=== PATIENT | female | born 1950 | race Caucasian/White ===

== ENCOUNTER 2017-12-15 19:50 | Observation (INO) ==
[2017-12-15] MEDS ORDERED: Naloxone 0.4 MG/ML INJ IVP PRN (23:29)
--- NOTE | 2017-12-15 23:58 | Internal Med History&Physical ---
Date of Encounter: 12/15/17 Time of Encounter: 23:00 Internal Medicine - H&P: HPI Chief complaint: expressive aphasia; right sided weakness Admitted From: Hospital to Hospital Transfer Plans for Post Hospital Care: Home History of present illness: Ms. Diallo is a 67 year old female who presents in transfer from [facility] ER in [place] for concerns of TIA/stroke. Her last known well was last night before she went to bed. She awoke this morning with signs and symptoms of expressive aphasia and worsening right-sided weakness. She was brought to ER this evening where she was seen and evaluated for possible stroke. Most of her symptoms had resolved by then and a transfer request was made to [place] for ongoing care and evaluation. Upon arrival, I saw her shortly after she arrived here at [place]. She is resting in bed comfortably and denies any symptoms presently other than some very subtle difficulty with her speech. She states her right-sided weakness is back to her baseline and resolved now. Her speech is normal and intelligible with rare episodes of pressure-type speech and difficulty finding her words. Otherwise, she reports that her speech is almost back to her baseline. She denies any difficulty swallowing, choking, gagging, facial droop, numbness, weakness, or paralysis. Of note, patient states she had a stroke just recently in June of this year. She was seen at [facility] and then transferred to [facility] at that time. She did not meet criteria for TPA in the ER. However, during her hospital stay at [facility], on hospital day #2, she did have acute stroke symptoms then that required TPA administration and monitoring in the Neurologic intensive care unit. She was left with some residual right-sided deficits, and she then required inpatient rehabilitation for 2 months. Since then, she has been doing relatively well until this morning when she awoke with some expressive aphasia and worsening of her right- sided deficits. She is not diabetic. She is a former smoker, but she quit smoking 6 weeks ago. Past Med Surg Social Fam HX - Past Medical History Attestation: Yes The following information was validated with the patient. Source: patient, other ([facility] ER notes) Medical history: cancer, CVA Additional medical history: Breast CA (2007,2013) Right side mastectomy (breast reconstruction) , left side lymphectomy Psychiatric history: anxiety, depression - Past Surgical History Surgical History: appendectomy, hysterectomy Additional surgical history: leg sx; cyst removal from left posterior leg - Social History Smoking Status: Former smoker Smokeless Tobacco Status: No Alcohol use: none Drug use: none Current living situation: Home, With Family Activity Level: Independent ambulation Recent Out of Country Travel Within the Last 8 Weeks: No - Family History Father Living Status: Cause of : natural Hx Family Cancer: Yes (prostate) Mother History Unknown: Yes Living Status: Age at : 92 Cause of : fall Internal Medicine - H&P: Meds 3 Allergy/AdvReac Type Severity Reaction Status Date / Time morphine Allergy Unknown Hives Verified 12/15/17 23:47 - Constitutional Constitutional: no chills, no fever(s), no night sweats - EENT Eyes: no blurry vision, no change in vision Ears: no ear pain, no tinnitus Nose, mouth and throat: no nasal congestion, no sinus pressure, no sore throat - Cardiovascular Cardiovascular ROS IM: no chest pain, no dyspnea, no dyspnea on exertion, no edema, no orthopnea, no paroxysmal nocturnal dyspnea - Respiratory Respiratory: no cough, no hemoptysis, no chest congestion, no excessive phlegm production, no change in phlegm color - Gastrointestinal Gastrointestinal: no abdominal pain, no diarrhea, no hematemesis, no hematochezia, no vomiting - Genitourinary Genitourinary: no dysuria, no flank pain, no hematuria - Musculoskeletal Musculoskeletal ROS IM: no arthralgias, no back pain - Integumentary Integumentary IM: no rash, no jaundice - Neurological Neurological ROS: abnormal speech, focal weakness, no dizziness, no frequent falls, no headache(s), no vertigo - Psychiatric Psychiatric: no anxiety, no depression - Endocrine Endocrine IM: no cold intolerance, no heat intolerance, no polydipsia, no polyuria - Allergic/Immunologic Allergic/Immunologic: no GI upset with certain foods - Constitutional Vitals: Temp Pulse Resp BP Pulse Ox 98.3 F 97 16 175/91 96 12/15/17 23:02 12/15/17 23:02 12/15/17 23:02 12/15/17 23:02 12/15/17 23:02 General appearance: Present: cooperative, A&O X 3, pleasant, no acute distress, answers questions appropriately Exam: Normal intelligible speech with rare periods of expressive aphasia - Head Head exam: Present: atraumatic, normal inspection - Eye Eye exam: Present: EOMI, normal appearance, PERRL. Absent: scleral icterus Pupils: Present: normal accommodation - ENT ENT exam: Present: mucous membranes moist, normal exam, normal oropharynx - Neck Neck exam general surgery: Present: full ROM, supple. Absent: tenderness, nuchal rigidity, thyromegaly - Expanded Neck Exam Neck exam: Present: carotid bruit (left side) - Respiratory Respiratory exam: Present: CTAB. Absent: chest wall tenderness, rales, rhonchi , wheezes - Cardiovascular Cardiovascular exam: Present: RRR, +S1, +S2. Absent: diastolic murmur, systolic murmur - GI/Abdominal GI/Abdominal exam: Present: normal bowel sounds, soft. Absent: guarding, hepatomegaly, mass, rebound, splenomegaly, tenderness - Extremities Exam Extremities exam: Present: full ROM, normal capillary refill, warm, radial pulses palpable and symmetrical. Absent: calf tenderness, pedal edema, tenderness - Back Exam Back exam: Present: normal inspection. Absent: CVA tenderness (L), CVA tenderness (R) - Neurological Exam Neurological exam: Present: alert, motor sensory deficit (subtle weakness in RUE compared to left -- baseline per patient), oriented X3, reflexes normal, speech deficit (subtle episodes of expressive aphasia as noted above) - Psychiatric Psychiatric exam: Present: normal affect, normal mood - Skin Skin exam: Present: dry, intact, warm Internal Med - H&P Results - Labs Labs: I reviewed her labs from [facility] and include the following: CT of the head negative WBC 8.2 Hemoglobin 12.8 Hematocrit 30.9 Platelets 349 Sodium 135 Potassium 4.3 Chloride 99 Carbon dioxide 29 BUN 21 0.88 - EKG Data -: EKG Interpreted by Myself - EKG Data Prior EKG available for review: no EKG comments: 12/16/17 00:06 NSR with LVH findings - Assessment and plan (1) Expressive aphasia Current Visit: Yes Status: Acute Assessment and plan: 1. Symptoms mostly resolved by now. 2. Will proceed with stroke work-up including MRI brain, Carotid Dopplers, and ECHO. 3. Consult neurology given recent stroke at [facility] (June) and new findings noted above. 4. Patient will need PT/OT/ST consults. 5. Will start ASA and STATIN. Patient med list not available and she's unsure of her meds. (2) History of recent stroke Current Visit: Yes Status: Acute Assessment and plan: 1. Will try to obtain records from [facility]. 2. Stroke work up as above. 3. Allow permissive hypertension for now; treat if necessary for SBP > 180. (3) Left carotid bruit Current Visit: Yes Status: Acute Assessment and plan: 1. Will order Carotid Dopplers to evaluate for carotid stenosis. 2. ASA/STATIN as above. (4) DVT prophylaxis Current Visit: Yes Status: Acute Assessment and plan: 1. Heparin SQ.
[2017-12-16] MEDS: 0.9 % Sodium Chloride 1,000 ML IVC SCH ×2 (00:13→16:54)
[2017-12-16] MEDS: *HR* Heparin 5,000 UNIT/ML VIAL SQ SCH ×3 (00:13→17:11)
[2017-12-16 07:02] LABS: Basophils # 0.1 K/mcL (0.0-0.2); Basophils % 0.8 %; Eosinophils # 0.2 K/mcL (0.0-0.6); Eosinophils % 3.3 %; Hematocrit 38.9 % (35.3-44.9); Hemoglobin 12.7 g/dL (11.5-15.4); Immature Granulocytes % 0.2 % (0-4); Lymphocytes # 2.8 K/mcL (0.6-4.6); Mean Corpuscular HGB Conc 32.6 g/dL (31.6-35.5); Mean Corpuscular Hemoglobin 28.2 pg (28.0-33.3); Mean Corpuscular Volume 86.3 fL (83.0-100.0); Mean Platelet Volume 10.3 fL (9.4-12.4); Monocytes # 0.4 K/mcL (0.0-1.3); Monocytes % 6.9 %; Neutrophils # 2.9 K/mcL (1.6-8.9); Platelet Count 306 K/mcL (140-400); Red Blood Count 4.51 M/mcL (3.82-4.97); Red Cell Distribution Width 14.3 % (11.5-14.5); Segmented Neutrophils % 45.8 %
[2017-12-16 07:12] LABS: Prothrombin Time 11.1 Seconds (9.4-12.1)
[2017-12-16 07:15] LABS: Activated Partial Thrombo Time 32.7 Seconds (26.0-36.0)
[2017-12-16 07:24] LABS: Alanine Aminotransferase 10 Units/L (7-52); Albumin 4.1 g/dL (3.5-5.7); Albumin/Globulin Ratio 1.5 (1.1-2.2); Alkaline Phosphatase 98 Units/L (34-104); Aspartate Amino Transferase 14 Units/L (13-39); BUN/Creatinine Ratio 23 (6-26); Bilirubin,Total 0.3 mg/dL (0.3-1.0); Blood Urea Nitrogen 14 mg/dL (8-23); Calcium 9.2 mg/dL (8.6-10.3); Carbon Dioxide 21 mEq/L (23-29); Chloride 107 mEq/L (98-107); Chol/HDL Ratio 3.6 (0-4.9); Cholesterol 211 mg/dL (< 200); Globulin 2.8 g/dL (2.4-3.5); Glucose 121 mg/dL (70-105); HDL Cholesterol 58 mg/dL (40-59); LDL Cholesterol,Calculated 124 mg/dL (0-99); Magnesium 2.2 mg/dL (1.6-2.6); Osmolality,Calculated 290 (280-300); Potassium 3.6 mEq/L (3.5-5.1); Sodium 139 mEq/L (136-145); Total Protein 6.9 g/dL (6.4-8.9); Triglycerides 145 mg/dL (< 150); eGFR For Non-African Americans > 60 (> 60)
[2017-12-16] MEDS ORDERED: Aspirin Enteric Coated 81 MG Tablet PO SCH (09:00)
--- NOTE | 2017-12-16 10:10 | Internal Med Progress Note ---
Hospitalist Progress Note - Encounter Date of Encounter: 12/16/17 Time of Encounter: 10:00 - Subjective Interval History: PMHx expressive aphasia, breast cancer with right mastectomy, recent stroke, left carotid bruit, former smoker that quit 6 weeks ago transferred from [facility] ED for concerns of TIA vs CVA. Patient is doing well. She reports her aphasia and weakness has improved. She has not had another episode of weakness or aphasia since admission. Denies CP, SOB, abdominal pain, blurry vision, headaches, palpitations, recent illness f/c/n/v. She currently has no acute complaints. Tolerating PO intake. Voiding without difficulty. Denies confusion or dizziness, denies worsening memory, headaches. - Exam Vitals: Temp Pulse Resp BP Pulse Ox 98.5 F 75 16 144/83 95 12/16/17 03:25 12/16/17 03:25 12/16/17 03:25 12/16/17 03:25 12/16/17 03:25 Exam: General appearance: Present: cooperative, A&O X 3, pleasant, no acute distress, answers questions appropriately Exam: Normal intelligible speech - Head Head exam: Present: atraumatic, normal inspection - Eye Eye exam: Present: EOMI, normal appearance, PERRL. Absent: scleral icterus Pupils: Present: normal accommodation - ENT ENT exam: Present: mucous membranes moist, normal exam, normal oropharynx - Neck Neck exam general surgery: Present: full ROM, supple. Absent: tenderness, nuchal rigidity, thyromegaly - Expanded Neck Exam Neck exam: No carotid bruit - Respiratory Respiratory exam: Present: CTAB. Absent: chest wall tenderness, rales, rhonchi , wheezes - Cardiovascular Cardiovascular exam: Present: RRR, +S1, +S2. Absent: diastolic murmur, systolic murmur - GI/Abdominal GI/Abdominal exam: Present: normal bowel sounds, soft. Absent: guarding, hepatomegaly, mass, rebound, splenomegaly, tenderness - Extremities Exam Extremities exam: Present: full ROM, normal capillary refill, warm, radial pulses palpable and symmetrical. Absent: calf tenderness, pedal edema, tenderness - Back Exam Back exam: Present: normal inspection. Absent: CVA tenderness (L), CVA tenderness (R) - Neurological Exam Neurological exam: Present: alert, motor sensory deficit (subtle weakness in RUE compared to left -- baseline per patient), oriented X3, reflexes normal, speech deficit (subtle episodes of expressive aphasia as noted above) - Psychiatric Psychiatric exam: Present: normal affect, normal mood - Skin Skin exam: Present: dry, intact, warm - Assessment and Plan (1) CVA (cerebral vascular accident) Current Visit: Yes Status: Acute (2) Expressive aphasia Current Visit: Yes Status: Acute (3) History of recent stroke Current Visit: Yes Status: Acute DVT Prophylaxis: Patient on plavix - Time Spent with Patient Total time spent is greater than 50% in coordination of care (as documented) at patient's floor/unit and/or counseling patient: Internal Medicine: Result - Labs CBC & Chem 7: 12/16/17 06:39 12/16/17 06:39 Labs: Short CBC 12/16/17 Range/Units 06:39 WBC 6.4 (4.3-11.1) K/mcL Hgb 12.7 (11.5-15.4) g/dL Hct 38.9 (35.3-44.9) % Plt Count 306 (140-400) K/mcL Neutrophils # 2.9 (1.6-8.9) K/mcL BMP 12/16/17 06:39 Sodium 139 Potassium 3.6 Chloride 107 Carbon Dioxide 21 L BUN 14 Creatinine 0.60 Glucose 121 H Calcium 9.2 Liver Function 12/16/17 Range/Units 06:39 Total Bilirubin 0.3 (0.3-1.0) mg/dL AST 14 (13-39) Units/L ALT 10 (7-52) Units/L Alkaline Phosphatase 98 (34-104) Units/L Albumin 4.1 (3.5-5.7) g/dL - ABG Interpretation ABG results: PT/INR, D-dimer PT 11.1 Seconds (9.4-12.1) 12/16/17 06:39 - Impressions Impressions Brain MRI 12/16/17 23:29 IMPRESSION: Multiple small area of acute infarcts within the left cerebral hemisphere, as detailed above. No evidence of associated hemorrhage. Abnormal and asymmetric left internal carotid artery flow void. No recent vascular imaging is available for review. Recommend further evaluation with CTA head and neck, given infarcts within left ICA distribution. Chronic small vessel ischemic white matter disease and diffuse cerebral volume loss. The findings were sent to the Radiology Results Communication Center at 8:44 am on 12/16/2017to be communicated to a licensed caregiver. D/ / 12/16/2017 08:50:40 Cristóbal Ramirez MD / tigre Interpreting Provider: Cristóbal Ramirez MD Consult Discharge Plan - Plan Referrals: Funmilayo Plasencia [Primary Care Provider] - (1) CVA (cerebral vascular accident) Qualifiers: Qualified Code(s): I63.9 - Cerebral infarction, unspecified
[2017-12-16] MEDS ORDERED: Isovue-370 500 ML INFUS..BTL IV ONE (11:46)
--- NOTE | 2017-12-16 11:58 | Neurology - Consult Note ---
<Demetrius Yuen N - Last Filed: 12/16/17 13:28> Date of Encounter: 12/16/17 Time of Encounter: 11:58 Assessment and Plan (1) CVA (cerebral vascular accident) Current Visit: Yes Status: Acute 67 year old female with a history of previous strokes on aspirin and atorvastatin presents with acute onset right upper extremity weakness and aphasia. Patient presented to [facility] and was transferred to [facility]. Outside window for tPA. Last stroke was at [facility] in June for which she received tPA. MRI at [facility] positive for multiple small infarcts. follow up CTA showed narrowing of left cervical intracranial artery. -No new neurological deficits present at this time. Patient states her symptoms have mostly improved aside from mild expressive aphasia -CTA reveals patient has narrowing of left ICA at the intracranial portion, likely source of embolic event. -Will add plavix to current medication regimen to optimize medical management. -Given the intracranial location of the narrowing, it is unlikely that vascular intervention can take place at this time. May consider neurosurgery consultation in the future if applicable. -Stenosis at the level of the carotid bifurcation is less than 50% -Also consider paroxysmal afib as cause of patient's embolic events. If evidence of afib is present will need to start on anticoagulation therapy. Qualifiers: Qualified Code(s): I63.9 - Cerebral infarction, unspecified History of Present Illness Chief complaint: CVA HPI: Ms. Diallo is a 67 year old female with acute onset right upper extremity weakness and speech difficulty. She was transferred to [facility] from [facility] for concern for stroke. Of note, patient has had previous strokes, including one in june while she was hospitalized at [facility] for which she received TPA. She has been on atorvastatin 80 mg and aspirin 325mg at home daily. She denies any history of afib or prior anticoagulation use. She states that her symptoms have mostly returned to baseline, aside from some mild difficulty with word finding. Her right upper extremity sensation and strength is at baseline and she denies any focal neurological deficits. No headaches, confusion, changes in vision, or lower extremity symptoms. MRI at [facility] was indicative of multiple small areas of acute infarcts within the left cerebral hemisphere. follow up CT angiogram of head and neck revealed asymmetric narrowing of left cervical intracranial artery. Past Med Surg Social Fam HX - Past Medical History Medical history: cancer, CVA Additional medical history: Breast CA (2007,2013) Right side mastectomy (breast reconstruction) , left side lymphectomy Psychiatric history: anxiety, depression - Past Surgical History Surgical History: appendectomy, hysterectomy Additional surgical history: leg sx; cyst removal from left posterior leg - Social History Smoking Status: Former smoker Smokeless Tobacco Status: No Alcohol use: none Drug use: none - Family History Father Living Status: Cause of : natural Hx Family Cancer: Yes (prostate) Mother History Unknown: Yes Living Status: Age at : 92 Cause of : fall Medications and Allergies Albuterol Neb [Proventil Neb] 2.5 mg IH TID PRN 12/16/17 [History] Aspirin 325 mg PO DAILY 12/16/17 [History] Atorvastatin Calcium [Lipitor] 80 mg PO HS 12/16/17 [History] Cholecalciferol (D-3) [Vitamin D] 2,000 unit PO DAILY 12/16/17 [History] Duloxetine HCl [Cymbalta] 60 mg PO DAILY 12/16/17 [History] Lisinopril [Zestril] 5 mg PO DAILY 12/16/17 [History] Tizanidine HCl [Zanaflex] 2 mg PO HS 12/16/17 [History] clonazePAM [Klonopin] 1 mg PO HS PRN 12/16/17 [History] 3 Allergy/AdvReac Type Severity Reaction Status Date / Time morphine Allergy Unknown Hives Verified 12/15/17 23:47 All Systems: The remainder of the systems were reviewed and are negative - Constitutional Constitutional ROS IM: as per HPI Physical Examination - Vital Signs Vital Signs: Initial Vital Signs Temp Pulse Resp BP Pulse Ox 98.7 F 83 16 171/95 96 12/15/17 21:51 12/15/17 21:51 12/15/17 21:51 12/15/17 21:51 12/15/17 21:51 - Exam Exam: constitutional: pleasant, no acute distress Heart: regular rate and rhythm, no murmurs Lungs: clear to auscultation bilaterally Neurological: -Speech is fluent and intelligible. very mild and occasional expressive aphasia when exeriencing difficulty with word finding. -Cranial Nerves: II-XII grossly intact -Upper extremities: sensation intact, Strength is 5/5 bilaterally with mild motor weakness in RUE when compared to left, but patient states that this is baseline. Finger to nose normal. No pronator drift. biceps and brachioradialis reflexes are 2+. -Lower extremities: sensation intact, strength is 5/5 bilaterally. patellar and achilles reflexes are 2+ bilaterally. Results - Laboratory Findings CBC and BMP: 12/16/17 06:39 12/16/17 06:39 Abnormal lab findings: Abnormal lab results Carbon Dioxide 21 mEq/L (23-29) L 12/16/17 06:39 Glucose 121 mg/dL (70-105) H 12/16/17 06:39 POC Glucose 165 mg/dL (70-99) H 12/15/17 23:49 Cholesterol 211 mg/dL (< 200) H 12/16/17 06:39 LDL Cholesterol, Calc 124 mg/dL (0-99) H 12/16/17 06:39 Consult Discharge Plan - Plan Referrals: Funmilayo Plasencia [Primary Care Provider] - <Estefani Scott I - Last Filed: 12/16/17 14:55> Date of Encounter: 12/16/17 Assessment and Plan (1) CVA (cerebral vascular accident) Current Visit: Yes Status: Acute Pt was seen and examined, my medical decision was reviewed with the Resident Physician, I agree with the documented findings, disposition and treatment plas as described except to the extent set forth below This patient apparently had a history of multiple CVAs luckily enough she did not have much residual deficit even this time seems like she did have a new infarct currently she is been maintained on antiplatelet therapy suggest adding Plavix to it along with the statin. Considering these multiple events recorded during perhaps she may have underlying paroxysmal A. fib that causing these embolic phenomenon off-and-on and that need to be monitored. At the moment we need to continue monitor if there is an evidence of A. fib perhaps she may need to be anticoagulated on the other hand if there is no evidence of A. fib he may need to monitor her with loop recorder for any paroxysmal events. Other treatment is as per primary team will follow the patient with you Estefani Scott MD Qualifiers: Qualified Code(s): I63.9 - Cerebral infarction, unspecified History of Present Illness HPI: Ms. Diallo is a 67 year old female All Systems: The remainder of the systems were reviewed and are negative Physical Examination - Vital Signs Vital Signs: Initial Vital Signs Temp Pulse Resp BP Pulse Ox 98.7 F 83 16 171/95 96 12/15/17 21:51 12/15/17 21:51 12/15/17 21:51 12/15/17 21:51 12/15/17 21:51 - Exam Exam: GENERAL: Comfortable in no acute distress HEENT: Normal LUNGS: CTA HEART: RRR, S1 S2 Audible, no murmur EXTREMITIES: No Pedal edema. DETAILED NEUROLOGICAL EXAMINATION: MENTAL STATUS: Oriented to person, place, date and situation. Memory: knows the President, Aware of recent events Recent Memory Intact Cranial Nerve Examination: CN - II: Visual Acuity, Field of Vision Normal, Fundus examination: No disk edema, Pupils- size shape reaction to light and accommodation: All normal. CN III, IV, : External ocular movements were intact, Pupils were reactive, Nodrooping of the eyelids CN V: Sensation over the face to light touch and pinprick all normal. Corneal reflexes not tested, jaw jerk normal. CN VII: No facial asymmetry, no flattening of nasolabial folds, no difficulty in closing the eyes, no loss of forehead wrinkles, no difficulty in eye-closure, frowning raising eyebrows. CNVIII: No significant hearing loss CN IX, X: Uvula centralized not deviated, Gag reflex: Not tested CN X1: Sternocleidomastoid, trapezius, normal or evidence of any weakness. CN X11: No Dysarthria, no wasting or fibrilation f tongue muscles, no deviation, tongue muscle strength normal. Motor examination: No hypertrophy, tone was normal, power grade 0-5 Upper limbs Proximal- No difficulty in lifting the arms above the head. Distal- No weakness in distal muscles On formal testing 5/5 all over Lower limbs On formal testing 5/5 all over Coordination: [id number] normal. Target pursuit normal finger tapping normal, Rapid alternating moment of wrist normal Sensory system: Superficial sensations- Touch normal. Pain- Pinprick, Temperature all normal, Deep sensation normal, Joint position sense normal. Cortical sensation, Tactile discrimination, localization and extinction all normal. Deep tendon reflexes. Symmetrical bilateral, No evidence of Babinski. No sign of meningeal irritation Gait Examination: Deferred - Constitutional General appearance: comfortable Results - Laboratory Findings CBC and BMP: 12/16/17 06:39 12/16/17 06:39 Abnormal lab findings: Abnormal lab results Carbon Dioxide 21 mEq/L (23-29) L 12/16/17 06:39 Glucose 121 mg/dL (70-105) H 12/16/17 06:39 POC Glucose 165 mg/dL (70-99) H 12/15/17 23:49 Cholesterol 211 mg/dL (< 200) H 12/16/17 06:39 LDL Cholesterol, Calc 124 mg/dL (0-99) H 12/16/17 06:39
--- NOTE | 2017-12-16 14:54 | Electrocardiograph Report ---
[place] [id number] Test Date: 2017-12-16 Pat Name: Ratna Diallo Department: 113 Room: 3B64 Gender: F Proofer: : 1950 Requested By: Javi Abernathy Order Number: [id number] Reading MD: Mandeep Palm Measurements Intervals Turner Rate: 82 P: 47 MS: 195 QRS: 25 QRSD: 94 T: 131 QT: 389 QTc: 428 Interpretive Statements SINUS RHYTHM POSSIBLE LEFT ATRIAL ENLARGEMENT LEFT VENTRICULAR HYPERTROPHY AND ST-T CHANGE Electronically Signed On 12-16-2017 14:52:38 EDT by Mandeep Palm
--- NOTE | 2017-12-16 16:20 | Discharge Summary ---
<Marco Nina - Last Filed: 12/16/17 17:13> - NOTES TO OUTPATIENT PROVIDER Notes to Outpatient Provider: CTA neck demonstrates 80-99% stenosis in the left proximal ICA. All imaging provided with transfer. History of previous CVA in June 2017, admitted to [facility] at that time. Right sided weakness and aphasia have resolved. Patient on ASA and plavix now. Date of Encounter: 12/16/17 Time of Encounter: 10:00 - Discharge Diagnosis (1) CVA (cerebral vascular accident) Priority: Primary Status: Acute Qualifiers: Qualified Code(s): I63.032 - Cerebral infarction due to thrombosis of left carotid artery (2) Expressive aphasia Priority: Secondary Status: Acute (3) History of recent stroke Priority: Secondary Status: Acute (4) Left carotid bruit Priority: Secondary Status: Acute Hospital course: Ms. Diallo is a 67 year old female Ms. Diallo is a 67 year old female who presents in transfer from [facility] ER in [place] for concerns of TIA/stroke. She awoke yesterday morning with signs and symptoms of expressive aphasia and worsening right-sided weakness. She was brought to ER on the same evening where she was seen and evaluated for possible stroke. At [facility] ED, her symptoms had resolved and she was transferred to [place] for further work-up Upon arrival to [facility], she had subtle speech difficulties. She states her right- sided weakness is back to her baseline and resolved now. Her speech is normal and intelligible with rare episodes of pressure-type speech and difficulty finding her words. She denied any difficulty swallowing, choking, gagging, facial droop, numbness, weakness, or paralysis. Of note, patient had a stroke recently in June of this year. She was seen at [facility] ER and then transferred to [facility] at that time. She did not meet criteria for TPA in the ER. However, during her hospital stay at [facility], on hospital day #2, she did have acute stroke symptoms then that required TPA administration and monitoring in the Neurologic intensive care unit. She was left with some residual right-sided deficits, and she then required inpatient rehabilitation for 2 months. Since then, she has been doing relatively well until this morning when she awoke with some expressive aphasia and worsening of her right-sided deficits. She is not diabetic. She is a former smoker, but she quit smoking 6 weeks ago. At this visit, MRI demonstrated acute infarcts in the left cerebral hemisphere without hemorrhage. Left carotid duplex demonstrated left proximal ICA with 80- 99% stenosis. She is now started on plavix. Per neurology, given intracranial location of the narrowing, it is unlikely that vascular intervention can take place at this time. Further evaluation and recommended from neurosurgeon required. Spoke with daughter Daisy, who has requested transfer to [facility] as Mrs. Diallo was there on June 2017 for her previous stroke. Called [facility] for transfer and spoke with Dr. Barbara Strauss, neurologist, who has accepted transfer to brain and spine unit. Will continue ASA, Plavix and transfer to [facility] as planned. Please call if you have any questions Dr. Marco Nina, PGY2 Discharge discussed with: patient, family - Time Spent with Patient Total time spent providing and/or coordinating discharge services: Greater than 30 minutes - Discharge Medications Home Medications: Albuterol Neb [Proventil Neb] 2.5 mg IH TID PRN 12/16/17 [History] Aspirin Enteric Coated [Aspirin EC] 81 mg PO DAILY tablet. 12/16/17 [Rx] Atorvastatin Calcium [Lipitor] 80 mg PO HS 12/16/17 [History] Cholecalciferol (D-3) [Vitamin D] 2,000 unit PO DAILY 12/16/17 [History] Clopidogrel [Plavix] 75 mg PO DAILY tablet 12/16/17 [Rx] Duloxetine HCl [Cymbalta] 60 mg PO DAILY 12/16/17 [History] Heparin 5,000 unit SQ Q12HCO vial 12/16/17 [Rx] Lisinopril [Zestril] 5 mg PO DAILY 12/16/17 [History] Tizanidine HCl [Zanaflex] 2 mg PO HS 12/16/17 [History] clonazePAM [Klonopin] 1 mg PO HS PRN 12/16/17 [History] Allergies/Adverse Reactions: 3 Allergy/AdvReac Type Severity Reaction Status Date / Time morphine Allergy Unknown Hives Verified 12/15/17 23:47 Date of admission: 12/15/17 21:36 Primary care physician: Funmilayo Plasencia Consults: 12/15/17 23:30 Consult to Neurology [CONS] Routine Consulting Provider: [facility] Reason for Consult: recent stroke s/p TPA ([facility]) June,; now has expressive aphasia and worsening right sided weakness (resolved within 24 hours). Call Completed: No 12/16/17 11:38 Consult to Speech Therapy [CONS] Routine Comment: Evaluate, develop and implement POC Reason for Consult: patient is having slight difficulty finding words. Dysphasia sceen passed. Call Completed: No Discharging clinician: Marco Nina Anticipated date of discharge: 12/16/17 - Constitutional Vitals: Temp Pulse Resp BP Pulse Ox 97.6 F 95 19 159/92 97 12/16/17 12:36 12/16/17 12:36 12/16/17 12:36 12/16/17 12:36 12/16/17 12:36 General appearance: Present: cooperative, A&O X 3, pleasant, no acute distress, answers questions appropriately Exam: General appearance: Present: cooperative, A&O X 3, pleasant, no acute distress, answers questions appropriately Exam: Normal intelligible speech - Head Head exam: Present: atraumatic, normal inspection - Eye Eye exam: Present: EOMI, normal appearance, PERRL. Absent: scleral icterus Pupils: Present: normal accommodation - ENT ENT exam: Present: mucous membranes moist, normal exam, normal oropharynx - Neck Neck exam general surgery: Present: full ROM, supple. Absent: tenderness, nuchal rigidity, thyromegaly - Expanded Neck Exam Neck exam: left carotid bruit - Respiratory Respiratory exam: Present: CTAB. Absent: chest wall tenderness, rales, rhonchi , wheezes - Cardiovascular Cardiovascular exam: Present: RRR, +S1, +S2. Absent: diastolic murmur, systolic murmur - GI/Abdominal GI/Abdominal exam: Present: normal bowel sounds, soft. Absent: guarding, hepatomegaly, mass, rebound, splenomegaly, tenderness - Extremities Exam Extremities exam: Present: full ROM, normal capillary refill, warm, radial pulses palpable and symmetrical. Absent: calf tenderness, pedal edema, tenderness - Back Exam Back exam: Present: normal inspection. Absent: CVA tenderness (L), CVA tenderness (R) - Neurological Exam Neurological exam: Present: alert, motor sensory deficit (subtle weakness in RUE compared to left -- baseline per patient), oriented X3, reflexes normal, speech deficit (subtle episodes of expressive aphasia as noted above) - Psychiatric Psychiatric exam: Present: normal affect, normal mood - Skin Skin exam: Present: dry, intact, warm - Patient Status Disposition: Transfer Critical Access Hosp Condition: Undetermined Functional capacity at discharge: bed bound Overall status at discharge: patient is not back to baseline - Discharge Instructions Follow Up With: Funmilayo Plasencia [Primary Care Provider] - - Diet and Activity Activity: increase activity as tolerated Diet: regular diet <Karena Mcclendon - Last Filed: 12/16/17 17:57> Date of Encounter: 12/16/17 - Discharge Diagnosis (1) Expressive aphasia Status: Acute (2) History of recent stroke Status: Acute (3) DVT prophylaxis Status: Acute (4) Left carotid bruit Status: Acute Hospital course: Ms. Diallo is a 67 year old female - Time Spent with Patient Total time spent providing and/or coordinating discharge services: Date of admission: 12/15/17 21:36 Primary care physician: Funmilayo Plasencia Consults: 12/15/17 23:30 Consult to Neurology [CONS] Routine Consulting Provider: [facility] Reason for Consult: recent stroke s/p TPA ([facility]) June,; now has expressive aphasia and worsening right sided weakness (resolved within 24 hours). Call Completed: No 12/16/17 11:38 Consult to Speech Therapy [CONS] Routine Comment: Evaluate, develop and implement POC Reason for Consult: patient is having slight difficulty finding words. Dysphasia sceen passed. Call Completed: No - Constitutional Vitals: Temp Pulse Resp BP Pulse Ox 98.2 F 102 19 186/103 96 12/16/17 16:40 12/16/17 16:40 12/16/17 16:40 12/16/17 16:46 12/16/17 16:40 - Attending Attestation I examined this patient and my medical decision-making was reviewed with the Resident Physician Dr. Nina. I agree with the documented findings, disposition and treatment plan as described except to the extent set forth below. Ms. Diallo is a 67 year old female with known PMH of HTN, HLD, Breast CA recent CVA with Rt side weakness currently on ASA pt was admitted here for acute CVA like symptoms with aphasia and Rt side weakness. She denied any weakness today. Her aphasia also little better, however still has some aphasia. Pt MRI came back as multiple infraction on Left hemisphere. CTA of Neck showed multiple acute infracts with in left internal carotid artery distribution area. Carotid doppler showed Left ICA 80-99% stenosis. Pt does need further work up by neuro surgery, so will transfer her to [facility] today. Pt was not a candidate for tPA initially due to prolonged duration of symptoms. Cont ASA + added Plavix. Cont Statin.
[2017-12-16 16:46] VITALS: BP 186/103
== END 2017-12-16 20:14 | disposition other institution (70) ==
LOC: 3BNU
PROVIDERS: ADMIT Pediatrics; ATTEND Pediatrics

== ENCOUNTER 2018-03-11 00:19 | Inpatient (IN) ==
--- NOTE | 2018-03-11 03:08 | Internal Med History&Physical ---
<Tian Todd - Last Filed: 03/11/18 05:09> Date of Encounter: 03/11/18 Time of Encounter: 03:07 Internal Medicine - H&P: HPI Chief complaint: Shortness of breath Admitted From: Hospital to Hospital Transfer Plans for Post Hospital Care: Home History of present illness: Ms. Diallo is a 67 year old female with past medical history of CVA, hyperlipidemia, hypertension, breast cancer who presented to emergency department at [facility] with complaint of shortness of breath since Wednesday. Patient states that her symptoms have been gradually worsening since onset and are worse on exertion. She recently has been recovering from an episode of bronchitis and suspected that this shortness of breath was associated. She also admits to productive cough with thin clear sputum. She denies any previous epis odes similar to this. She also denies any symptoms of edema, fevers, chills, chest pain, palpitations, nausea, vomiting, numbness, tingling. She does admit to PND but denies orthopnea. She denies any cardiac history or pulmonary history. Her breast cancer is status post lumpectomy and her last known treatment of chemotherapy or radiation was in 2015. In the [facility] emergency department, laboratory results were significant for H/H of 9.2/28.9, troponin was 0.062, BNP was elevated at 5206. CTA was also performed which showed right breast implant which may be ruptured, mediastinal lymph node enlargement at 10 mm, left axillary lymph node enlargement, bilateral pleural effusions, cardiomegaly and bilateral lower lobe consolidations which is most employee representative of infection. EKG was obtained and showed sinus tachycardia at a rate of 122 with left atrial enlargement, LVH and some nonspecific ST depressions in leads V4 to V6. Past medical history as above Past surgical history includes lumpectomy, carotid endarterectomy Social history: Former smoker (one pack per day, quit in July 2017), denies alcohol or drug use Family history: Denies any contributing family history Past Med Surg Social Fam HX - Past Medical History Medical history: arthritis, cancer, CVA, hyperlipidemia, hypertension Additional medical history: Breast CA (2007,2013) Right side mastectomy (breast reconstruction) , left side lymphectomy Psychiatric history: anxiety, depression - Past Surgical History Surgical History: appendectomy, hysterectomy Additional surgical history: leg sx; cyst removal from left posterior leg - Social History Smoking Status: Former smoker Smokeless Tobacco Status: No Alcohol use: none Drug use: none - Family History Father Living Status: Hx Family Cancer: Yes (prostate) Mother Living Status: Internal Medicine - H&P: Meds Albuterol Neb [Proventil Neb] 2.5 mg IH TID PRN 12/16/17 [History] Aspirin Enteric Coated [Aspirin EC] 81 mg PO DAILY tablet. 12/16/17 [Rx] Atorvastatin Calcium [Lipitor] 80 mg PO HS 12/16/17 [History] Cholecalciferol (D-3) [Vitamin D] 2,000 unit PO DAILY 12/16/17 [History] Clopidogrel [Plavix] 75 mg PO DAILY tablet 12/16/17 [Rx] Duloxetine HCl [Cymbalta] 60 mg PO DAILY 12/16/17 [History] Heparin 5,000 unit SQ Q12HCO vial 12/16/17 [Rx] Lisinopril [Zestril] 5 mg PO DAILY 12/16/17 [History] Tizanidine HCl [Zanaflex] 2 mg PO HS 12/16/17 [History] clonazePAM [Klonopin] 1 mg PO HS PRN 12/16/17 [History] Allergy/AdvReac Type Severity Reaction Status Date / Time morphine Allergy Unknown Hives Verified 12/15/17 23:47 All Systems PM: A 10-system review of systems was performed and is negative for pertinent findings except as documented above in the HPI. Review of systems: - Constitutional: Denies fevers, chills, weight loss, generalized fatigue - EENT: Denies vision changes/blurriness, rhinorrhea, congestion, sore throat, odynaphagia - CVS: Admits to dyspnea on exertion, PND .Denies chest pain, palpitations, orthopnea, edema - Pulm: Admits to shortness of breath, cough, sputum. Denies hematemesis, wheezing - GI: Denies abdominal pain, anorexia, nausea, vomiting, diarrhea, constipation, melena - : Denies dysuria, increased frequency, urgency, hematuria, - Skin: Denies rashes, ulcers, color changes, - Neuro: Denies SCHNEIDER, paresthesias, focal deficits, ataxia - Constitutional Vitals: Temp Pulse Resp BP Pulse Ox 98.0 F 109 16 142/88 95 03/11/18 01:45 03/11/18 01:45 03/11/18 01:45 03/11/18 01:45 03/11/18 01:45 Exam: Gen.: Vitals noted. No acute distress. AAOx3, resting comfortably in bed. HEENT: PERRL/EOMI, oropharynx clear, Normocephalic, atraumatic, MMM Neck: Supple. No adenopathy. No thyroid nodules Cardiac: Regular rhythm, tachycardic, no murmur, +S1/S2, No BLE edema Pulmonary: CTA bilaterally, no wheezes, rales or rhonchi, equal chest expansion, unlabored breathing Abdomen: soft, nontender, BS noted, no guarding, no palpable HSM Skin: warm and dry, no visible lesions. MSK: ROM not assessed, no joint swelling noted, gait no assessed while in bed. Non tender calf or clubbing Neuro: A&Ox3, moves all extremities, no focal deficits, sensation intact, cranial nerves grossly intact Psych: Appropriate mood and behavior, AOx3 Internal Med - H&P Results - Labs CBC & Chem 7: 03/11/18 03:26 03/11/18 03:26 - Assessment and plan (1) Shortness of breath Current Visit: Yes Status: Acute Assessment and plan: - Etiology possibly multifactorial: CHF exacerbation with pneumonia - Patient is non septic, no WBC elevation - Currently tolerating room air. Admits to LAMB and PND - BNP 5206 in [facility] - Previous Echo in December 2017 shows EF 45-50%, Mild diastolic dysfunction - CTA performed in [facility] shows bilateral pleural effusions, R>L as well as bilateral lower lobe consolidations most suspicious of infection - Previous treatment for breast cancer- pericardial effusion, dilated c ardiomyopathy in differential. Plan - Will start abx of azithromycin and rocephin for CAP, day1 - Trend troponin, repeat BNP - Lasix 20 mg IV x1 dose, assess output after - Fluid restriction diet - Will Consult cardiology for possible new onset/worsening of CHF as well as NSTEMI (2) Congestive heart failure Current Visit: Yes Status: Acute Assessment and plan: - As above - Patient denies previous history, however Echo 12/16/17 shows EF 45-50%, mild diastolic dysfunction, mild RV hypokinesis, mild RV dilation - CTA shows ground glass opacities bilaterally that may be infectious or employee representative of edema. - BNP 5206 - EKG shows LVH, LA enlargement Qualifiers: Heart failure type: diastolic Heart failure chronicity: acute on chronic Qualified Code(s): I50.33 - Acute on chronic diastolic (congestive) heart markus lure (3) Pneumonia Current Visit: Yes Status: Acute Assessment and plan: as above - abx of azithromycin and ceftriaxone - Will obtain blood cultures - per CTA - Non septic Qualifiers: Pneumonia type: due to unspecified organism Laterality: bilateral Lung location: lower lobe of lung Qualified Code(s): J18.1 - Lobar pneumonia, unspecified organism (4) NSTEMI (non-ST elevated myocardial infarction) Current Visit: Yes Status: Acute Assessment and plan: - Trop elevated at 0.062 at [facility], will trend - Suspect demand ischemia, however patient may have new onset CHF - cardiology consult - no chest pain - EKG reviewed personally and repeated at [facility] (5) Hyperlipidemia Current Visit: Yes Status: Chronic Assessment and plan: Continue statin when meds reconciled repeat lipid panel in AM Qualifiers: Hyperlipidemia type: unspecified Qualified Code(s): E78.5 - Hyperlipidemia, unspecified (6) Hypertension Current Visit: Yes Status: Chronic Assessment and plan: - Mildly elevated at 152/94 - Hold BB in case of stress test - Continue to monitor Qualifiers: Hypertension type: essential hypertension Qualified Code(s): I10 - Essential (primary) hypertension (7) CVA (cerebral vascular accident) Current Visit: Yes Status: Chronic Assessment and plan: - History of CVA x2 in June 2017 with use of TPA at [facility] - Follows with Dr. Scott as outpatient - No neurological defecits - Continue DAPT Qualifiers: CVA mechanism: unspecified Qualified Code(s): I63.9 - Cerebral infarction, unspecified (8) Anemia Current Visit: Yes Status: Acute Assessment and plan: - H/H of 9.2/28.9 in [facility] - Previous baseline of 12.7 in December 2017 - No complaints of bleeding, however has been on DAPT. Started on heparin gtt - Normal Mcv - Will obtain iron panel, FOBT - No indications for transfusions at this time. Qualifiers: Anemia type: unspecified type Qualified Code(s): D64.9 - Anemia, unsp ecified (9) DVT prophylaxis Current Visit: Yes Status: Acute Assessment and plan: - On heparin gtt for NSTEMI as above - Time Spent With Patient Total time spent is greater than 50% in coordination of care (as documented) at patient's floor/unit and/or counseling patient: <Luis E Jackson - Last Filed: 03/11/18 06:17> Date of Encounter: 03/11/18 Internal Medicine - H&P: HPI History of present illness: Ms. Diallo is a 67 year old female All Systems PM: A 10-system review of systems was performed and is negative for pertinent findings except as documented above in the HPI. - Constitutional Vitals: Temp Pulse Resp BP Pulse Ox 98.0 F 106 16 152/94 94 03/11/18 03:35 03/11/18 03:35 03/11/18 03:35 03/11/18 03:35 03/11/18 03:35 Internal Med - H&P Results - Labs CBC & Chem 7: 03/11/18 03:26 03/11/18 03:26 Labs: Short CBC 03/11/18 Range/Units 03:26 WBC 7.2 (4.3-11.1) K/mcL Hgb 8.9 L (11.5-15.4) g/dL Hct 28.2 L (35.3-44.9) % Plt Count 447 H (140-400) K/mcL BMP 03/11/18 03:26 Sodium 135 L Potassium 3.9 Chloride 105 Carbon Dioxide 20 L BUN 14 Creatinine 0.76 Glucose 151 H Calcium 9.2 Cardiac Enzymes 03/11/18 Range/Units 03:26 Troponin I 0.04 H* (< 0.04) ng/mL - Time Spent With Patient Total time spent is greater than 50% in coordination of care (as documented) at patient's floor/unit and/or counseling patient: - Attending Attestation I saw and evaluated the patient. I reviewed the residents note, performed my own physical examination and agree with findings and plan as documented in the residents note. Patient seen and examined on 03/11/18. Patient presented to ER for shortness of breath. Has elevated troponin, and possible pneumonia as well. Recent echo performed, but will get repeat as now has elevated BNP. Will have cardiology evaluate as well in the morning.
[2018-03-11] MEDS ORDERED: *HR* Heparin 5,000 UNIT/ML VIAL IVP ONE (03:40)
[2018-03-11] MEDS ORDERED: *HR* Heparin 5,000 UNIT/ML VIAL IVP PRN ×2 (03:40)
[2018-03-11] MEDS ORDERED: Heparin 25,000 UNIT/500 ML D5W 25,000 UNIT/500 ML BAG IVC SCH (03:45)
[2018-03-11] MEDS ORDERED: Naloxone 0.4 MG/ML INJ IVP PRN (03:57)
[2018-03-11] MEDS ORDERED: Furosemide 20 MG/2 ML VIAL IVP ONE ×3 (03:58→09:03)
[2018-03-11 04:08] LABS: Hematocrit 28.2 % (35.3-44.9); Hemoglobin 8.9 g/dL (11.5-15.4); Mean Corpuscular HGB Conc 31.6 g/dL (31.6-35.5); Mean Corpuscular Hemoglobin 26.6 pg (28.0-33.3); Mean Corpuscular Volume 84.2 fL (83.0-100.0); Mean Platelet Volume 10.3 fL (9.4-12.4); Platelet Count 447 K/mcL (140-400); Red Blood Count 3.35 M/mcL (3.82-4.97); Red Cell Distribution Width 14.4 % (11.5-14.5)
[2018-03-11 04:18] LABS: Heparin anti-factor XA UFH 0.78 IU/mL (0.30-0.70); INR 1.3; Prothrombin Time 14.5 Seconds (9.4-12.1)
[2018-03-11 04:24] LABS: BUN/Creatinine Ratio 18 (6-26); Blood Urea Nitrogen 14 mg/dL (8-23); Calcium 9.2 mg/dL (8.6-10.3); Carbon Dioxide 20 mEq/L (23-29); Chloride 105 mEq/L (98-107); Cholesterol 112 mg/dL (< 200); Glucose 151 mg/dL (70-105); HDL Cholesterol 37 mg/dL (40-59); LDL Cholesterol,Calculated 62 mg/dL (0-99); Osmolality,Calculated 283 (280-300); Potassium 3.9 mEq/L (3.5-5.1); Sodium 135 mEq/L (136-145); Triglycerides 65 mg/dL (< 150); eGFR For Non-African Americans > 60 (> 60)
[2018-03-11] MEDS: Azithromycin 500 MG in D5% in Water 250 ML IVPB SCH (04:28)
[2018-03-11 04:33] LABS: Estimated Average Glucose 134 mg/dl; Hemoglobin A1C 6.3 %
[2018-03-11] MEDS: Ondansetron 4 MG/2 ML VIAL IVP PRN (05:27)
[2018-03-11] MEDS: cefTRIAXone 1,000 MG in Water for inj. (sterile) 20 ML 10 ML IVP SCH (07:53)
[2018-03-11 07:59] LABS: % Iron Saturation 2 % (15-50); Iron 11 mcg/dL (50-170); Transferrin 319 mg/dL (203-362)
--- NOTE | 2018-03-11 08:53 | Internal Med Progress Note ---
Hospitalist Progress Note - Encounter Date of Encounter: 03/11/18 Time of Encounter: 08:25 - Subjective Interval History: Seen and examined this morning at bedside. No acute overnight events. Breathing improved. No fever or chills nausea vomiting diarrhea. Denies any chest pain or palpitation or dizziness. Denies any chest discomfort or arm pain. - Exam Vitals: Temp Pulse Resp BP Pulse Ox 98.1 F 90 16 103/67 90 03/11/18 07:25 03/11/18 07:25 03/11/18 07:25 03/11/18 07:25 03/11/18 07:25 Exam: General: In no acute distress. Conversant. Respiratory exam: no accessory muscle use. Rales on Lt mid lung field and Rt lower lung field Cardiovascular exam: RRR, +S1, +S2. no murmur, gallop, rubs. Rt breast implant noted. Without chest wall tenderness or erythema. GI/Abdominal exam: Non-tender, Non-distended, normal bowel sounds, soft, no peritoneal signs. Extremities exam: full ROM, no pedal edema, warm, pulses palpable in b/l lower extremities. no calf tenderness Neurological exam: CN II-XII intact, AO X3, no focal deficits. no pronater drift, facial droop, speech deficit Skin exam: No skin rash, ulcer, purpura or ecchymosis. - Summary of Assessment and Plan Summary of Assessment and Plan: Shortness of breath - CHF vs PNA vs multifactorial - Tachycardic intially, no white count - BNP 5206 in [facility]. Today 1500s - Echo in December with EF 45-50%, Mild diastolic dysfunction - CTA at [facility] shows bilateral pleural effusions, bilateral lower lobe consolidations - c/w azithromycin and rocephin for CAP. f/u BLood cultures - Trend troponin 0.06->0.04. Currently chest pain free. EKG with LVH and tachy cardia with T-wave inversion and ST depressions in V4-v6. No stress test in last 2 yers that patient remembers. - Got one dose of Lasix 20 mg IV. symptomatically improved. Will give one more dose today - c/w Fluid restriction - f/u ECHO - Cardiology consulted Congestive heart failure - As above Pneumonia -as above NSTEMI - Trop 0.06->0.04 - Suspect demand ischemia - cardiology consult - Currently without chest pain - EKG as above Suspected Rt breast implant rupture - Based on CT scan - Patient without any complains - Surgery consulted. Hyperlipidemia - c/w home statin Hypertension - BB on hold - Continue to monitor. Stable for now h/o CVA - CVA x2 in June 2017 with use of TPA at [facility] - No neurological defecits - Continue DAPT and statin Anemia - Hb 8.9. baseline of 12.7 in December 2017 - No complaints of bleeding, however has been on DAPT. Started on heparin gtt - Iron panel with likely iron def. f/u FOBT - No indications for transfusions at this time. - monitor H/H DVT prophylaxis - On heparin drip - Time Spent with Patient Total time spent is greater than 50% in coordination of care (as documented) at patient's floor/unit and/or counseling patient: Internal Medicine: Result - Labs CBC & Chem 7: 03/11/18 03:26 03/11/18 03:26 Labs: Short CBC 03/11/18 Range/Units 03:26 WBC 7.2 (4.3-11.1) K/mcL Hgb 8.9 L (11.5-15.4) g/dL Hct 28.2 L (35.3-44.9) % Plt Count 447 H (140-400) K/mcL BMP 03/11/18 03:26 Sodium 135 L Potassium 3.9 Chloride 105 Carbon Dioxide 20 L BUN 14 Creatinine 0.76 Glucose 151 H Calcium 9.2 Cardiac Enzymes 03/11/18 Range/Units 03:26 Troponin I 0.04 H* (< 0.04) ng/mL - ABG Interpretation ABG results: PT/INR, D-dimer PT 14.5 Seconds (9.4-12.1) H 03/11/18 03:55 Consult Discharge Plan - Plan Referrals: Funmilayo Plasencia [Primary Care Provider] -
[2018-03-11] MEDS: Aspirin Enteric Coated 81 MG Tablet PO SCH (09:32)
--- NOTE | 2018-03-11 12:05 | Cardiology Consult Note ---
<Rosalba Daniels - Last Filed: 03/11/18 13:04> Date of Encounter: 03/11/18 Time of Encounter: 09:45 Assessment and Plan (1) Congestive heart failure Current Visit: Yes Status: Acute Per cardiology: -ADmitted with CHF, reports NYHA class III symptoms. -BNP 1500s. -Was given IV lasix. -Reports symptoms now resolves after IV lasix. -Currently euvolemic on exam. -TTE 12/2017 with LVEF 45-50%, mild diastolic dysfunction, mild RV hypokinesis, mildly dilated RV, mildly dilated left atrium. -Repeat limited TTE pending. -Strict i/os, fluid restriction, daily weight. -Will add oral lasix. -REstart patient shanell inhibitor, will start BB. -CHF education reviewed with patient. Qualifiers: Heart failure type: combined systolic and diastolic Heart failure chronicity: acute on chronic Qualified Code(s): I50.43 - Acute on chronic combined systolic (congestive) and diastolic (congestive) heart failure (2) Elevated troponin Current Visit: Yes Status: Acute Per cardiology: -Troponin 0.0662 [place], 0.04, then negative [facility] in the setting of CHF. -Reports atypical, pleuritic Chest pain. -ECG with lateral ST depressions and T wave inversions, similar to previous ECG 12/2017. -On heparin drip, asa, plavix, statin. -Limited TTE pending. -Demand ischemia related to above. No cardiac rehab consult warranted. -Starting BB. -If no significant change on limited TTE, ok to discontinue heparin drip. -With mild reduction in LV systolic function 12/2017, can consider ischemic e valuation in outpatient setting. OF note, acute anemia noted and recent CVA 12/2017. (3) Anemia Current Visit: Yes Status: Acute Per cardiology: -hemoglobin 8.9 this admission. -Hemoglobin 12/2017 12.7. -Denies active bleeding or blood loss. -Recommend GI evaluation. -Management per primary service. Qualifiers: Anemia type: unspecified type Qualified Code(s): D64.9 - Anemia, unspecified Discussion w patient/family: The assessment and plan as outlined above was discussed with the patient who expressed understanding and agreement. All questions were answered. Thank you for involving us in the care of your patient. Please call with any questions. Discussed and reviewed with . History of Present Illness Consult date: 03/11/18 Requesting physician: Tian Todd Consult reason: elevated troponin Chief complaint: shortness of breath History of present illness: Ms. Diallo is a 67 year old female with a relevant past medical history of depression, HTN, vascular disease, multiple CVAs, breast cancer s/p mastectomy who presented to [facility] for increased shortness of breath. Patient was then transferred to [facility]. Patient reports shortness of breath since Wednesday. Repors pleuritic chest pain. States was being treated for bronchitis in outpatient setting. Denies edema. Patient reports after lasix, symptoms have resolved. Denies current complaints. Past Med Surg Social Fam HX - Past Medical History Attestation: Yes The following information was validated with the patient. Source: patient, old records reviewed Medical history: arthritis, cancer, CVA, hyperlipidemia, hypertension Additional medical history: Breast CA (2007,2013) Right side mastectomy (breast reconstruction) , left side lymphectomy Psychiatric history: anxiety, depression - Past Surgical History Surgical History: appendectomy, hysterectomy Additional surgical history: leg sx; cyst removal from left posterior leg - Social History Smoking Status: Former smoker Smokeless Tobacco Status: No Alcohol use: none Drug use: none - Family History Father Living Status: Hx Family Cancer: Yes (prostate) Mother Living Status: Medications and Allergies Atorvastatin Calcium [Lipitor] 80 mg PO HS 12/16/17 [History] Cholecalciferol (D-3) [Vitamin D] 2,000 unit PO DAILY 12/16/17 [History] Clopidogrel [Plavix] 75 mg PO DAILY tablet 12/16/17 [Rx] Duloxetine HCl [Cymbalta] 60 mg PO DAILY 12/16/17 [History] Lisinopril [Zestril] 5 mg PO DAILY 12/16/17 [History] Tizanidine HCl [Zanaflex] 2 mg PO HS 12/16/17 [History] clonazePAM [Klonopin] 1 mg PO HS PRN 12/16/17 [History] Aspirin 325 mg PO DAILY 03/11/18 [History] Allergy/AdvReac Type Severity Reaction Status Date / Time morphine AdvReac Unknown See Verified 03/11/18 12:39 Comments gabapentin AdvReac See Verified 03/11/18 12:39 Comments All Systems Review: The remainder of the systems were reviewed and are negative - Cardiovascular Cardiovascular: as per HPI, dyspnea at rest, dyspnea on exertion Physical Examination Vital Signs, Last 4 Hours Temp Pulse Resp BP Pulse Ox 03/11/18 11:15 98.4 F 100 18 129/82 91 General: Conversant, No Apparent Distress HEENT: Atraumatic, Normocephaly, Mucus Membranes Moist Neck: No JVD, Normal carotid pulses Cardiac: Reg Rate and Rhythm, Normal S1 and S2, No Murmur Lungs: Normal Breath Sounds, No Wheeze, Rales, Rhonchi Neuro: Alert and responsive, No focal deficits noted Abdomen: Soft, Non-Tender Skin: No rashes noted on visualized skin Musculoskeletal: No Chest Wall Tenderness Extremities: No Clubbing, No Cyanosis, No Edema, Normal Pulses Results 03/11/18 03:26 03/11/18 03:26 Lab Results Active Medications Aspirin (Aspirin Ec) 81 mg PO DAILY [facility] Stop: 09/10/18 09:01 Last Admin: 03/11/18 09:32 Dose: 81 mg Atorvastatin Calcium (Lipitor) 80 mg PO HS [facility] Stop: 09/10/18 21:01 Clopidogrel Bisulfate (Plavix) 75 mg PO DAILY [facility] Stop: 09/10/18 09:01 Last Admin: 03/11/18 09:32 Dose: 75 mg Heparin Sodium (Porcine) (Heparin) 3,600 unit 60 unit/kg (3600 unit) IVP Q6HR PRN PRN Reason: SEE COMMENTS Stop: 09/10/18 03:41 Heparin Sodium (Porcine) (Heparin) 1,800 unit 30 unit/kg (1800 unit) IVP Q6H PRN PRN Reason: SEE COMMENTS Stop: 09/10/18 03:41 Heparin Sodium/Dextrose (Heparin 25,000 Unit/500 Ml D5w) 25,000 unit in 500 mls @ 14.544 mls/hr IVC .Q24H [facility]; Protocol Stop: 09/10/18 03:46 Last Titration: 03/11/18 11:32 Dose: 7 unit/kg/hr, 8.484 mls/hr Azithromycin 500 mg/ Dextrose 250 mls @ 252 mls/hr IVPB Q24H [facility] Stop: 09/10/18 05:01 Last Admin: 03/11/18 04:28 Dose: 252 mls/hr Ceftriaxone Sodium 1,000 mg/ (Sterile Water) 10 mls @ 600 mls/hr IVP DAILY [facility] Stop: 09/10/18 09:01 Last Admin: 03/11/18 07:53 Dose: 600 mls/hr Lisinopril (Zestril) 5 mg PO DAILY [facility]; Protocol Stop: 09/10/18 12:16 Metoprolol Succinate (Toprol Xl) 25 mg PO DAILY [facility] Stop: 09/10/18 12:16 Naloxone HCl (Narcan) 0.4 mg IVP Q2MIN PRN PRN Reason: SEE COMMENTS Stop: 09/10/18 03:58 Ondansetron HCl (Zofran) 4 mg IVP Q6HR PRN; Protocol PRN Reason: Nausea Stop: 09/10/18 05:19 Last Admin: 03/11/18 05:27 Dose: 4 mg Laboratory Tests 12/16/17 03/11/18 03/11/18 06:39 03:26 03:26 Hgb 12.7 8.9 L Creatinine Troponin I 0.04 H* B-Natriuretic Peptide 03/11/18 03/11/18 03/11/18 03:26 03:26 10:00 Hgb Creatinine 0.76 Troponin I 0.03 B-Natriuretic Peptide 1556 H - Imaging and Cardiology Chest Xray: report reviewed Echo: pending, report reviewed - EKG Interpretation EKG results cardiology: personally reviewed (ECG with ST, HR 122. Lateral ST depressions noted, similar to previous.), other (Telemetry reviewed with average HR previous 12 hours noted to be 104, ST. PVCs, PACs noted.) Consult Discharge Plan - Plan Referrals: Funmilayo Plasencia [Primary Care Provider] - <Mandeep Palm - Last Filed: 03/11/18 17:17> Date of Encounter: 03/11/18 - Attending Attestation Patient was seen and evaluated independently by me. Findings, assessment and plan were discussed at length with patient, questions answered. Agree with nurse practitioner's/resident's documentation. Addition as follows, 67 yoF ho multiple ischemic strokes, mild HFrEF , HTN, breast Ca. P/w progressive LAMB for 2-3 days with recent respiratory infection. ECG chronic LVH ST-T change. Trop peak 0.06, BNP 1500. Dyspnea much improved after lasix iv. VSS, no JVD, CTA, RR, no LE edema. TTE EF 45-50%, mild DD, mild RV enlargement with mild hypokinesis A: ADHF, HFrEF, trigger likely respiratory infection, mild fluid overload, currently close to euvolemia Mild trop elevation due to myocardial injury due to ADHF Bronchitis Ho multiple ischemic CVA P: pending repeated TTE lasix till euvolemia BB, ACEI c/w DAPT, statin cardiac clinic f/u Mandeep Palm MD, PhD Assessment and Plan Discussion w patient/family: The assessment and plan as outlined above was discussed with the patient and/or family members who expressed understanding and agreement. All questions were answered. Thank you for involving us in the care of your patient. Please call with any questions. History of Present Illness History of present illness: Ms. Diallo is a 67 year old female All Systems Review: The remainder of the systems were reviewed and are negative Physical Examination Vital Signs, Last 4 Hours Temp Pulse Resp BP Pulse Ox 03/11/18 16:30 98.2 F 100 18 135/80 92 Results 03/11/18 03:26 03/11/18 03:26 Lab Results 03/11/18 03/11/18 03/11/18 03:26 03:26 03:26 WBC 7.2 Hgb 8.9 L Hct 28.2 L Plt Count 447 H INR Sodium 135 L Potassium 3.9 Chloride 105 Carbon Dioxide 20 L BUN 14 Creatinine 0.76 Glucose 151 H Calcium 9.2 Troponin I 0.04 H* B-Natriuretic Peptide 03/11/18 03/11/18 03/11/18 03:26 03:55 10:00 WBC Hgb Hct Plt Count INR 1.3 Sodium Potassium Chloride Carbon Dioxide BUN Creatinine Glucose Calcium Troponin I 0.03 B-Natriuretic Peptide 1556 H
[2018-03-11] MEDS: Metoprolol XL (24 HR) Succ 25 MG TAB.ER.24H PO SCH (13:57)
[2018-03-11] MEDS ORDERED: Perflutren Lipid Microsphere 1.3 ML in 0.9 % Sodium Chloride 8.7 ML IVP ONE (19:22)
[2018-03-12] MEDS: Azithromycin 500 MG in D5% in Water 250 ML IVPB SCH (05:01)
[2018-03-12 05:19] LABS: Basophils # 0.1 K/mcL (0.0-0.2); Basophils % 0.8 %; Eosinophils # 0.1 K/mcL (0.0-0.6); Eosinophils % 1.4 %; Hematocrit 28.5 % (35.3-44.9); Immature Granulocytes % 0.4 % (0-4); Lymphocytes # 2.5 K/mcL (0.6-4.6); Lymphocytes % 31.9 %; Mean Corpuscular HGB Conc 31.6 g/dL (31.6-35.5); Mean Corpuscular Hemoglobin 26.3 pg (28.0-33.3); Mean Corpuscular Volume 83.3 fL (83.0-100.0); Mean Platelet Volume 9.9 fL (9.4-12.4); Monocytes # 0.5 K/mcL (0.0-1.3); Monocytes % 6.5 %; Neutrophils # 4.7 K/mcL (1.6-8.9); Nucleated Red Blood Cells 0.4 /100 WBC (0); Platelet Count 441 K/mcL (140-400); Red Blood Count 3.42 M/mcL (3.82-4.97); Red Cell Distribution Width 14.1 % (11.5-14.5)
[2018-03-12] MEDS: Ondansetron 4 MG/2 ML VIAL IVP PRN (05:29)
[2018-03-12 05:37] LABS: BUN/Creatinine Ratio 20 (6-26); Blood Urea Nitrogen 17 mg/dL (8-23); Calcium 9.2 mg/dL (8.6-10.3); Carbon Dioxide 26 mEq/L (23-29); Chloride 102 mEq/L (98-107); Glucose 126 mg/dL (70-105); Osmolality,Calculated 285 (280-300); Potassium 3.9 mEq/L (3.5-5.1); Sodium 136 mEq/L (136-145); eGFR For Non-African Americans > 60 (> 60)
[2018-03-12] MEDS ORDERED: *HR* Heparin 5,000 UNIT/ML VIAL IVP PRN ×2 (06:25)
[2018-03-12] MEDS ORDERED: *HR* Heparin 5,000 UNIT/ML VIAL IVP ONE (06:25)
[2018-03-12 08:13] LABS: Heparin anti-factor XA UFH 0.02 IU/mL (0.30-0.70); INR 1.3; Prothrombin Time 14.3 Seconds (9.4-12.1)
[2018-03-12] MEDS: cefTRIAXone 1,000 MG in Water for inj. (sterile) 20 ML 10 ML IVP SCH (09:05)
[2018-03-12] MEDS: Aspirin Enteric Coated 81 MG Tablet PO SCH (09:06)
[2018-03-12] MEDS: Furosemide 40 MG TABLET PO SCH (09:06)
[2018-03-12] MEDS: Metoprolol XL (24 HR) Succ 25 MG TAB.ER.24H PO SCH (09:07)
[2018-03-12] MEDS: Heparin 25,000 UNIT/500 ML D5W 25,000 UNIT/500 ML BAG IVC SCH (09:08)
--- NOTE | 2018-03-12 10:22 | Event Note ---
Date of Encounter: 03/12/18 Time of Encounter: 08:30 - Cardiology Event Note TTE reviewed with patient and LV systolic dysfunction noted to be severely reduced. LVEF 30-35% global hypokinesis with segemental variation. On asa, plavix, BB, shanell inhibitor, lasix. Euvolemic on exam. Recommend LHC prior to discharge. Of note, new anemia noted. Recommend GI work up prior to LHC. Stool OB ordered, patient reports no BM since admission. Patient denies active bleeding or blood loss. Cardiology will continue to follow peripherally. Again, recommend LHC prior to discharge.
--- NOTE | 2018-03-12 11:50 | Internal Med Progress Note ---
Hospitalist Progress Note - Encounter Date of Encounter: 03/12/18 Time of Encounter: 11:37 - Subjective Interval History: Seen and examined this morning at bedside. No acute overnight events. No fever or chills nausea vomiting diarrhea. Denies any chest pain or palpitation or dizziness. Breathing improved. - Exam Vitals: Temp Pulse Resp BP Pulse Ox 98.0 F 17 17 150/84 93 03/12/18 11:07 03/12/18 11:07 03/12/18 11:07 03/12/18 11:07 03/12/18 11:07 Exam: General: In no acute distress. Conversant. Respiratory exam: no accessory muscle use. Rales on Lt mid lung field and Rt lower lung field, improved but still present. Cardiovascular exam: RRR, +S1, +S2. no murmur, gallop, rubs. Rt breast implant noted. Without chest wall tenderness or erythema. GI/Abdominal exam: Non-tender, Non-distended, normal bowel sounds, soft, no peritoneal signs. Extremities exam: full ROM, no pedal edema, warm, pulses palpable in b/l lower extremities. no calf tenderness Neurological exam: CN II-XII intact, AO X3, no focal deficits. no pronater drift, facial droop, speech deficit Skin exam: No skin rash, ulcer, purpura or ecchymosis. - Summary of Assessment and Plan Summary of Assessment and Plan: Shortness of breath - CHF vs PNA vs multifactorial - Tachycardic intially, no white count - BNP 5206 in Stephen. Today 1500s - Echo in December with EF 45-50%, Mild diastolic dysfunction - CTA at [facility] shows bilateral pleural effusions, bilateral lower lobe consolidations - c/w azithromycin and rocephin for CAP. BLood cultures 03/11/18 NGTD - Trend troponin 0.06->0.04. Currently chest pain free. EKG with LVH and tachycardia with T-wave inversion and ST depressions in V4-v6. No stress test in last 2 years that patient remembers. - ECHO with severely reduced EF and global hypokinesis. Will need LHC prior to discharge - c/w Fluid restriction. c/w lasix - Cardiology following. Appreciate recommendations. Requesting GI workup. Congestive heart failure - As above Pneumonia -as above Anemia - Hb 8.9. baseline of 12.7 in December 2017 - No complaints of bleeding, however has been on DAPT. on heparin gtt. - Iron panel with likely iron def. f/u FOBT - No indications for transfusions at this time. - reports last colonoscopy around 5 years and was told to get next in 10 years at [facility]. No h/o EGD. - Will consult Surgery for possible EGD/Colonoscopy. - monitor H/H NSTEMI - Trop 0.06->0.04 - Suspect demand ischemia - On heparin drip - Currently without chest pain - EKG as above - Will Need [facility] Suspected Rt breast implant rupture - Based on CT scan - Patient without any complains - Spoke with surgery. Outpatient followup. Hyperlipidemia - c/w home statin Hypertension - c/w BB - Continue to monitor. Stable for now h/o CVA - CVA x2 in June 2017 with use of TPA at [facility] - No neurological defecits - Continue DAPT and statin DVT prophylaxis - On heparin drip - Time Spent with Patient Total time spent is greater than 50% in coordination of care (as documented) at patient's floor/unit and/or counseling patient: Internal Medicine: Result - Labs CBC & Chem 7: 03/12/18 04:54 03/12/18 04:54 Labs: Short CBC 03/12/18 Range/Units 04:54 WBC 7.9 (4.3-11.1) K/mcL Hgb 9.0 L (11.5-15.4) g/dL Hct 28.5 L (35.3-44.9) % Plt Count 441 H (140-400) K/mcL Neutrophils # 4.7 (1.6-8.9) K/mcL BMP 03/12/18 04:54 Sodium 136 Potassium 3.9 Chloride 102 Carbon Dioxide 26 BUN 17 Creatinine 0.85 Glucose 126 H Calcium 9.2 - ABG Interpretation ABG results: PT/INR, D-dimer PT 14.3 Seconds (9.4-12.1) H 03/12/18 07:49 - Impressions Impressions Echocardiogram Limited Views 03/11/18 11:02 Impressions: LVEF 30-35%. Severe global and segmental left ventricular systolic dysfunction. Mild right ventricular hypokinesis. Mildly dilated left atrium. Ordering physician notified. Left Ventricular Wall Motion: Rest Echo Findings The apical inferior, mid inferior, basal inferior, basal anterior, mid inferior septal, basal inferior septal, apical lateral, mid anterior lateral, basal anterior lateral, mid anterior septal, mid inferior lateral, basal anterior septal and basal inferior lateral georges were hypokinetic. The apex, apical anterior, mid anterior and apical septal georges were akinetic. Findings: Study Quality * Technically adequate exam. ECG Findings * Normal sinus rhythm. Left Ventricle * LVEF 30-35%. * Normal LV chamber size and wall thickness. * Severe global and segmental left ventricular systolic dysfunction. * There is no LV thrombus. Right Ventricle * Normal right ventricular size. * Mild right ventricular hypokinesis. Left Atrium * Mildly dilated left atrium. Right Atrium * Normal right atrial size. Consult Discharge Plan - Plan Referrals: Funmilayo Plasencia [Primary Care Provider] - (Please follow up with your primary care provider. Call to schedule after your hospital discharge. )
--- NOTE | 2018-03-12 12:30 | General Surgery Consult Note ---
Addendum entered and electronically signed by Sterling Montes De Oca MD 03/12/18 19:39: Addendum; EGD, colonoscopy on 03/13 Original Note: <Nivia Hinton - Last Filed: 03/12/18 13:34> Date of Encounter: 03/12/18 Time of Encounter: 12:03 Assessment and Plan (1) Anemia Current Visit: Yes Status: Acute Patient is asymptomatic and shows no signs of active bleeding. Patient reports most recent colonoscopy was less than 5 years ago and was normal, recommended 10 year follow up. No history of diverticulosis or polyps. No known family history of colon cancer. Vitals stable Hgb 12.7 (12/2017) and 9.0 today Iron studies: Iron 11, % saturation 2, Transferrin 319, consistent with iron deficiency Cardiology requesting GI evaluation prior to [facility] Plan for EGD tomorrow morning, no indication for colonoscopy at this time Started miralax bowel prep NPO at midnight Will continue to monitor H/H Stool OB pending, no bowel movement since admission Qualifiers: Anemia type: unspecified type Qualified Code(s): D64.9 - Anemia, unspecified History of Present Illness Consult date: 03/12/18 Reason for consult: other (acute anemia) Requesting physician: Mel Ramirez History of present illness: Ratna Diallo is a 67 year old female with a history of CVA, HTN, HLD, breast cancer s/p chemo and radiation in 2016 who presented to [facility] ED with SOB for 5 days. Labs on presentation showed H/H 9.2/28.9, Troponin 0.062, BNP 5206. CTA showed right breast implant which may be ruptured, mediastinal lymph node enlargement at 10 mm, left axillary lymph node enlargement, bilateral pleural effusions, cardiomegaly and bilateral lower lobe consolidations which is most telephone service representative of infection. EKG was obtained and showed sinus tachycardia at a rate of 122 with left atrial enlargement, LVH and some nonspecific ST depressions in leads V4 to V6. Per cardiology, patient has Acute CHF with elevated troponin and TTE that showed LV systolic dysfunction severely reduced from previous to EF 30-35%, as well as acute anemia without any signs of active bleeding. Hgb in 12/2017 was 12.7 and is now 9.0. Cardiology is requesting GI workup prior to [facility]. Past Med Surg Social Fam HX - Past Medical History Medical history: arthritis, cancer, CVA, hyperlipidemia, hypertension Additional medical history: Breast CA (2007,2013) Right side mastectomy (breast reconstruction) , left side lymphectomy Psychiatric history: anxiety, depression - Past Surgical History Surgical History: appendectomy, hysterectomy Additional surgical history: leg sx; cyst removal from left posterior leg - Social History Smoking Status: Former smoker Smokeless Tobacco Status: No Alcohol use: none Drug use: none - Family History Father Living Status: Hx Family Cancer: Yes (prostate) Mother Living Status: Medications and Allergies Atorvastatin Calcium [Lipitor] 80 mg PO HS 12/16/17 [History] Cholecalciferol (D-3) [Vitamin D] 2,000 unit PO DAILY 12/16/17 [History] Clopidogrel [Plavix] 75 mg PO DAILY tablet 12/16/17 [Rx] Duloxetine HCl [Cymbalta] 60 mg PO DAILY 12/16/17 [History] Lisinopril [Zestril] 5 mg PO DAILY 12/16/17 [History] Tizanidine HCl [Zanaflex] 2 mg PO HS 12/16/17 [History] clonazePAM [Klonopin] 1 mg PO HS PRN 12/16/17 [History] Aspirin 325 mg PO DAILY 03/11/18 [History] Allergy/AdvReac Type Severity Reaction Status Date / Time morphine AdvReac Unknown See Verified 03/11/18 12:39 Comments gabapentin AdvReac See Verified 03/11/18 12:39 Comments Review of Systems All systems PM: The remainder of the systems were reviewed and are negative - Constitutional no chills, no fever(s) - Cardiovascular no chest pain, no lightheadedness, no palpitations, no syncope - Gastrointestinal no abdominal pain, no coffee ground emesis, no diarrhea, no hematemesis, no hematochezia, no melena, no nausea, no vomiting - Genitourinary Genitourinary: no hematuria General Surgery Exam Initial Vital Signs Temp Pulse Resp BP Pulse Ox 98.0 F 109 16 142/88 95 03/11/18 01:45 03/11/18 01:45 03/11/18 01:45 03/11/18 01:45 03/11/18 01:45 - General physical appearance well developed, well nourished, no distress, no pain - Respiratory normal expansion, normal respiratory effort - Cardiovascular Cardiovascular exam: Present: RRR, no murmurs/rubs/gallops - Abdomen Abdomen general surgery: Present: bowel sounds present, soft, non tender. Absent: distended, guarding, rebound - Psychiatric Psychiatric general surgery: Present: A&Ox3, speech is normal Exam Initial Vital Signs Temp Pulse Resp BP Pulse Ox 98.0 F 109 16 142/88 95 03/11/18 01:45 03/11/18 01:45 03/11/18 01:45 03/11/18 01:45 03/11/18 01:45 Results - Labs 03/12/18 04:54 03/12/18 04:54 Abnormal lab results RBC 3.42 M/mcL (3.82-4.97) L 03/12/18 04:54 Hgb 9.0 g/dL (11.5-15.4) L 03/12/18 04:54 Hct 28.5 % (35.3-44.9) L 03/12/18 04:54 MCH 26.3 pg (28.0-33.3) L 03/12/18 04:54 Plt Count 441 K/mcL (140-400) H 03/12/18 04:54 Nucleated RBCs/100 WBC 0.4 /100 WBC (0) H 03/12/18 04:54 PT 14.3 Seconds (9.4-12.1) H 03/12/18 07:49 Heparin Anti-Xa, Unfract 0.02 IU/mL (0.30-0.70) L 03/12/18 07:49 Glucose 126 mg/dL (70-105) H 03/12/18 04:54 Hemoglobin A1c 6.3 % (-5.6) H 03/11/18 03:26 Iron 11 mcg/dL (50-170) L 03/11/18 07:08 % Saturation 2 % (15-50) L 03/11/18 07:08 B-Natriuretic Peptide 1556 pg/mL (Less than 100) H 03/11/18 03:26 HDL Cholesterol 37 mg/dL (40-59) L 03/11/18 03:26 Diabetes panel 03/12/18 Range/Units 04:54 Sodium 136 (136-145) mEq/L Potassium 3.9 (3.5-5.1) mEq/L Chloride 102 (98-107) mEq/L Carbon Dioxide 26 (23-29) mEq/L BUN 17 (8-23) mg/dL Creatinine 0.85 (0.60-1.20) mg/dL Glucose 126 H (70-105) mg/dL Calcium 9.2 (8.6-10.3) mg/dL Calcium panel 03/12/18 Range/Units 04:54 Calcium 9.2 (8.6-10.3) mg/dL Pituitary panel 03/12/18 Range/Units 04:54 Sodium 136 (136-145) mEq/L Potassium 3.9 (3.5-5.1) mEq/L Chloride 102 (98-107) mEq/L Carbon Dioxide 26 (23-29) mEq/L BUN 17 (8-23) mg/dL Creatinine 0.85 (0.60-1.20) mg/dL Glucose 126 H (70-105) mg/dL Calcium 9.2 (8.6-10.3) mg/dL Adrenal panel 03/12/18 Range/Units 04:54 Sodium 136 (136-145) mEq/L Potassium 3.9 (3.5-5.1) mEq/L Chloride 102 (98-107) mEq/L Carbon Dioxide 26 (23-29) mEq/L BUN 17 (8-23) mg/dL Creatinine 0.85 (0.60-1.20) mg/dL Glucose 126 H (70-105) mg/dL Calcium 9.2 (8.6-10.3) mg/dL All other labs normal. Consult Discharge Plan - Plan Referrals: Funmialyo Plasencia [Primary Care Provider] - (Please follow up with your primary care provider. Call to schedule after your hospital discharge. ) <Sterling Montes De Oca - Last Filed: 03/12/18 18:53> Date of Encounter: 03/12/18 Review of Systems All systems PM: The remainder of the systems were reviewed and are negative General Surgery Exam Initial Vital Signs Temp Pulse Resp BP Pulse Ox 98.0 F 109 16 142/88 95 03/11/18 01:45 03/11/18 01:45 03/11/18 01:45 03/11/18 01:45 03/11/18 01:45 Exam Initial Vital Signs Temp Pulse Resp BP Pulse Ox 98.0 F 109 16 142/88 95 03/11/18 01:45 03/11/18 01:45 03/11/18 01:45 03/11/18 01:45 03/11/18 01:45 Results - Labs 03/12/18 04:54 03/12/18 04:54 Abnormal lab results RBC 3.42 M/mcL (3.82-4.97) L 03/12/18 04:54 Hgb 9.0 g/dL (11.5-15.4) L 03/12/18 04:54 Hct 28.5 % (35.3-44.9) L 03/12/18 04:54 MCH 26.3 pg (28.0-33.3) L 03/12/18 04:54 Plt Count 441 K/mcL (140-400) H 03/12/18 04:54 Nucleated RBCs/100 WBC 0.4 /100 WBC (0) H 03/12/18 04:54 PT 14.3 Seconds (9.4-12.1) H 03/12/18 07:49 Glucose 126 mg/dL (70-105) H 03/12/18 04:54 Hemoglobin A1c 6.3 % (-5.6) H 03/11/18 03:26 Iron 11 mcg/dL (50-170) L 03/11/18 07:08 % Saturation 2 % (15-50) L 03/11/18 07:08 B-Natriuretic Peptide 1556 pg/mL (Less than 100) H 03/11/18 03:26 HDL Cholesterol 37 mg/dL (40-59) L 03/11/18 03:26 Diabetes panel 03/11/18 03/11/18 03/11/18 Range/Units 03:26 03:26 03:26 WBC 7.2 (4.3-11.1) K/mcL RBC 3.35 L (3.82-4.97) M/mcL Hgb 8.9 L (11.5-15.4) g/dL Hct 28.2 L (35.3-44.9) % MCV 84.2 (83.0-100.0) fL MCH 26.6 L (28.0-33.3) pg MCHC 31.6 (31.6-35.5) g/dL RDW 14.4 (11.5-14.5) % Plt Count 447 H (140-400) K/mcL MPV 10.3 (9.4-12.4) fL Immature Gran % (0-4) % Seg Neutrophils % % Lymphocytes % % Monocytes % % Eosinophils % % Basophils % % Neutrophils # (1.6-8.9) K/mcL Lymphocytes # (0.6-4.6) K/mcL Monocytes # (0.0-1.3) K/mcL Eosinophils # (0.0-0.6) K/mcL Basophils # (0.0-0.2) K/mcL Nucleated RBCs/100 WBC (0) /100 WBC PT (9.4-12.1) Seconds INR Heparin Anti-Xa, Unfract (0.30-0.70) IU/mL Sodium (136-145) mEq/L Potassium (3.5-5.1) mEq/L Chloride (98-107) mEq/L Carbon Dioxide (23-29) mEq/L BUN (8-23) mg/dL Creatinine (0.60-1.20) mg/dL Est GFR ( Amer) > 60 (> 60) Est GFR (Non-Af Amer) > 60 (> 60) BUN/Creatinine Ratio 18 (6-26) Glucose (70-105) mg/dL Est Mean Plasma Glucose mg/dl Calculated Osmolality 283 (280-300) Calcium (8.6-10.3) mg/dL Iron (50-170) mcg/dL % Saturation (15-50) % Transferrin (203-362) mg/dL Troponin I 0.04 H* (< 0.04) ng/mL B-Natriuretic Peptide (Less than 100) pg/mL Cholesterol 112 (< 200) mg/dL LDL Cholesterol, Calc 62 (0-99) mg/dL VLDL Cholesterol, Calc 13 (< 31) mg/dL Cholesterol/HDL Ratio 3.0 (0-4.9) 03/11/18 03/11/18 03/11/18 Range/Units 03:26 03:26 03:55 WBC (4.3-11.1) K/mcL RBC (3.82-4.97) M/mcL Hgb (11.5-15.4) g/dL Hct (35.3-44.9) % MCV (83.0-100.0) fL MCH (28.0-33.3) pg MCHC (31.6-35.5) g/dL RDW (11.5-14.5) % Plt Count (140-400) K/mcL MPV (9.4-12.4) fL Immature Gran % (0-4) % Seg Neutrophils % % Lymphocytes % % Monocytes % % Eosinophils % % Basophils % % Neutrophils # (1.6-8.9) K/mcL Lymphocytes # (0.6-4.6) K/mcL Monocytes # (0.0-1.3) K/mcL Eosinophils # (0.0-0.6) K/mcL Basophils # (0.0-0.2) K/mcL Nucleated RBCs/100 WBC (0) /100 WBC PT 14.5 H (9.4-12.1) Seconds INR 1.3 Heparin Anti-Xa, Unfract 0.78 H (0.30-0.70) IU/mL Sodium (136-145) mEq/L Potassium (3.5-5.1) mEq/L Chloride (98-107) mEq/L Carbon Dioxide (23-29) mEq/L BUN (8-23) mg/dL Creatinine (0.60-1.20) mg/dL Est GFR ( Amer) (> 60) Est GFR (Non-Af Amer) (> 60) BUN/Creatinine Ratio (6-26) Glucose (70-105) mg/dL Est Mean Plasma Glucose 134 mg/dl Calculated Osmolality (280-300) Calcium (8.6-10.3) mg/dL Iron (50-170) mcg/dL % Saturation (15-50) % Transferrin (203-362) mg/dL Troponin I (< 0.04) ng/mL B-Natriuretic Peptide 1556 H (Less than 100) pg/mL Cholesterol (< 200) mg/dL LDL Cholesterol, Calc (0-99) mg/dL VLDL Cholesterol, Calc (< 31) mg/dL Cholesterol/HDL Ratio (0-4.9) 03/11/18 03/11/18 03/11/18 Range/Units 07:08 10:00 10:00 WBC (4.3-11.1) K/mcL RBC (3.82-4.97) M/mcL Hgb (11.5-15.4) g/dL Hct (35.3-44.9) % MCV (83.0-100.0) fL MCH (28.0-33.3) pg MCHC (31.6-35.5) g/dL RDW (11.5-14.5) % Plt Count (140-400) K/mcL MPV (9.4-12.4) fL Immature Gran % (0-4) % Seg Neutrophils % % Lymphocytes % % Monocytes % % Eosinophils % % Basophils % % Neutrophils # (1.6-8.9) K/mcL Lymphocytes # (0.6-4.6) K/mcL Monocytes # (0.0-1.3) K/mcL Eosinophils # (0.0-0.6) K/mcL Basophils # (0.0-0.2) K/mcL Nucleated RBCs/100 WBC (0) /100 WBC PT (9.4-12.1) Seconds INR Heparin Anti-Xa, Unfract 1.08 H* (0.30-0.70) IU/mL Sodium (136-145) mEq/L Potassium (3.5-5.1) mEq/L Chloride (98-107) mEq/L Carbon Dioxide (23-29) mEq/L BUN (8-23) mg/dL Creatinine (0.60-1.20) mg/dL Est GFR ( Amer) (> 60) Est GFR (Non-Af Amer) (> 60) BUN/Creatinine Ratio (6-26) Glucose (70-105) mg/dL Est Mean Plasma Glucose mg/dl Calculated Osmolality (280-300) Calcium (8.6-10.3) mg/dL Iron 11 L (50-170) mcg/dL % Saturation 2 L (15-50) % Transferrin 319 (203-362) mg/dL Troponin I 0.03 (< 0.04) ng/mL B-Natriuretic Peptide (Less than 100) pg/mL Cholesterol (< 200) mg/dL LDL Cholesterol, Calc (0-99) mg/dL VLDL Cholesterol, Calc (< 31) mg/dL Cholesterol/HDL Ratio (0-4.9) 03/12/18 03/12/18 03/12/18 Range/Units 04:54 04:54 07:49 WBC 7.9 (4.3-11.1) K/mcL RBC 3.42 L (3.82-4.97) M/mcL Hgb 9.0 L (11.5-15.4) g/dL Hct 28.5 L (35.3-44.9) % MCV 83.3 (83.0-100.0) fL MCH 26.3 L (28.0-33.3) pg MCHC 31.6 (31.6-35.5) g/dL RDW 14.1 (11.5-14.5) % Plt Count 441 H (140-400) K/mcL MPV 9.9 (9.4-12.4) fL Immature Gran % 0.4 (0-4) % Seg Neutrophils % 59.0 % Lymphocytes % 31.9 % Monocytes % 6.5 % Eosinophils % 1.4 % Basophils % 0.8 % Neutrophils # 4.7 (1.6-8.9) K/mcL Lymphocytes # 2.5 (0.6-4.6) K/mcL Monocytes # 0.5 (0.0-1.3) K/mcL Eosinophils # 0.1 (0.0-0.6) K/mcL Basophils # 0.1 (0.0-0.2) K/mcL Nucleated RBCs/100 WBC 0.4 H (0) /100 WBC PT 14.3 H (9.4-12.1) Seconds INR 1.3 Heparin Anti-Xa, Unfract 0.02 L (0.30-0.70) IU/mL Sodium 136 (136-145) mEq/L Potassium 3.9 (3.5-5.1) mEq/L Chloride 102 (98-107) mEq/L Carbon Dioxide 26 (23-29) mEq/L BUN 17 (8-23) mg/dL Creatinine 0.85 (0.60-1.20) mg/dL Est GFR ( Amer) > 60 (> 60) Est GFR (Non-Af Amer) > 60 (> 60) BUN/Creatinine Ratio 20 (6-26) Glucose 126 H (70-105) mg/dL Est Mean Plasma Glucose mg/dl Calculated Osmolality 285 (280-300) Calcium 9.2 (8.6-10.3) mg/dL Iron (50-170) mcg/dL % Saturation (15-50) % Transferrin (203-362) mg/dL Troponin I (< 0.04) ng/mL B-Natriuretic Peptide (Less than 100) pg/mL Cholesterol (< 200) mg/dL LDL Cholesterol, Calc (0-99) mg/dL VLDL Cholesterol, Calc (< 31) mg/dL Cholesterol/HDL Ratio (0-4.9) 03/12/18 Range/Units 15:42 WBC (4.3-11.1) K/mcL RBC (3.82-4.97) M/mcL Hgb (11.5-15.4) g/dL Hct (35.3-44.9) % MCV (83.0-100.0) fL MCH (28.0-33.3) pg MCHC (31.6-35.5) g/dL RDW (11.5-14.5) % Plt Count (140-400) K/mcL MPV (9.4-12.4) fL Immature Gran % (0-4) % Seg Neutrophils % % Lymphocytes % % Monocytes % % Eosinophils % % Basophils % % Neutrophils # (1.6-8.9) K/mcL Lymphocytes # (0.6-4.6) K/mcL Monocytes # (0.0-1.3) K/mcL Eosinophils # (0.0-0.6) K/mcL Basophils # (0.0-0.2) K/mcL Nucleated RBCs/100 WBC (0) /100 WBC PT (9.4-12.1) Seconds INR Heparin Anti-Xa, Unfract 0.56 (0.30-0.70) IU/mL Sodium (136-145) mEq/L Potassium (3.5-5.1) mEq/L Chloride (98-107) mEq/L Carbon Dioxide (23-29) mEq/L BUN (8-23) mg/dL Creatinine (0.60-1.20) mg/dL Est GFR ( Amer) (> 60) Est GFR (Non-Af Amer) (> 60) BUN/Creatinine Ratio (6-26) Glucose (70-105) mg/dL Est Mean Plasma Glucose mg/dl Calculated Osmolality (280-300) Calcium (8.6-10.3) mg/dL Iron (50-170) mcg/dL % Saturation (15-50) % Transferrin (203-362) mg/dL Troponin I (< 0.04) ng/mL B-Natriuretic Peptide (Less than 100) pg/mL Cholesterol (< 200) mg/dL LDL Cholesterol, Calc (0-99) mg/dL VLDL Cholesterol, Calc (< 31) mg/dL Cholesterol/HDL Ratio (0-4.9) Calcium panel 03/12/18 Range/Units 04:54 Calcium 9.2 (8.6-10.3) mg/dL Pituitary panel 03/12/18 Range/Units 04:54 Sodium 136 (136-145) mEq/L Potassium 3.9 (3.5-5.1) mEq/L Chloride 102 (98-107) mEq/L Carbon Dioxide 26 (23-29) mEq/L BUN 17 (8-23) mg/dL Creatinine 0.85 (0.60-1.20) mg/dL Glucose 126 H (70-105) mg/dL Calcium 9.2 (8.6-10.3) mg/dL Adrenal panel 03/12/18 Range/Units 04:54 Sodium 136 (136-145) mEq/L Potassium 3.9 (3.5-5.1) mEq/L Chloride 102 (98-107) mEq/L Carbon Dioxide 26 (23-29) mEq/L BUN 17 (8-23) mg/dL Creatinine 0.85 (0.60-1.20) mg/dL Glucose 126 H (70-105) mg/dL Calcium 9.2 (8.6-10.3) mg/dL All other labs normal. - Attending Attestation patient seen and examined. all notes, labs, and imaging were reviewed by me. I agree with the above assessment and plan and wish to add the following... 67F admitted with SOB, with recent pneumonia, with recent strokes, most recent episodes being June and December of 2017, recent drop in EG (45-50%-->35%). Also found to have lab values consistent with Fe-deficiency anemia. Currently with low hgb as compared to 2 months ago. No reports of acute episodes of bleeding. last colonoscopy was unremarkable ~ 5 years ago per patient; Low suspicion for active or recent GI bleed. will discuss with family concerning the timing of EGD, colonoscopy
[2018-03-13] MEDS: Azithromycin 500 MG in D5% in Water 250 ML IVPB SCH (04:40)
--- NOTE | 2018-03-13 08:09 | Event Note ---
Date of Encounter: 03/13/18 Time of Encounter: 08:08 - Cardiology Event Note Surgery note reviewed and plan for EGD/colonoscopy today. Pending results, labs, will plan for possible LHC tomorrow. Will make NPO after midnight.
[2018-03-13 08:23] LABS: Basophils # 0.1 K/mcL (0.0-0.2); Basophils % 0.8 %; Eosinophils # 0.1 K/mcL (0.0-0.6); Eosinophils % 1.3 %; Hematocrit 28.3 % (35.3-44.9); Hemoglobin 8.9 g/dL (11.5-15.4); Immature Granulocytes % 0.2 % (0-4); Lymphocytes # 2.2 K/mcL (0.6-4.6); Lymphocytes % 34.2 %; Mean Corpuscular HGB Conc 31.4 g/dL (31.6-35.5); Mean Corpuscular Hemoglobin 26.1 pg (28.0-33.3); Mean Platelet Volume 9.8 fL (9.4-12.4); Monocytes # 0.5 K/mcL (0.0-1.3); Monocytes % 8.1 %; Neutrophils # 3.5 K/mcL (1.6-8.9); Platelet Count 405 K/mcL (140-400); Red Blood Count 3.41 M/mcL (3.82-4.97); Red Cell Distribution Width 14.2 % (11.5-14.5); Segmented Neutrophils % 55.4 %
[2018-03-13 08:42] LABS: BUN/Creatinine Ratio 13 (6-26); Blood Urea Nitrogen 10 mg/dL (8-23); Calcium 9.1 mg/dL (8.6-10.3); Carbon Dioxide 25 mEq/L (23-29); Chloride 103 mEq/L (98-107); Glucose 138 mg/dL (70-105); Osmolality,Calculated 285 (280-300); Potassium 3.7 mEq/L (3.5-5.1); Sodium 137 mEq/L (136-145); eGFR For Non-African Americans > 60 (> 60)
[2018-03-13] MEDS: Metoprolol XL (24 HR) Succ 25 MG TAB.ER.24H PO SCH (08:46)
[2018-03-13] MEDS: cefTRIAXone 1,000 MG in Water for inj. (sterile) 20 ML 10 ML IVP SCH (08:46)
[2018-03-13] MEDS: Furosemide 40 MG TABLET PO SCH (08:46)
[2018-03-13] MEDS: Aspirin Enteric Coated 81 MG Tablet PO SCH (08:46)
[2018-03-13] MEDS ORDERED: *HR* FentaNYL (PF) 100 MCG/2 ML VIAL ONE (09:51)
[2018-03-13] MEDS ORDERED: *HR* Midazolam HCl 5 MG/5 ML VIAL IVP ONE (09:51)
[2018-03-13] MEDS ORDERED: Simethicone 40 MG/0.6 ML MLS IR ONE (09:55)
[2018-03-13] MEDS ORDERED: *HR* FentaNYL (PF) 100 MCG/2 ML VIAL IVP ONE (09:55)
[2018-03-13] MEDS ORDERED: Acetylcysteine 10% 2 ML INHSOL IH ONE (09:55)
--- NOTE | 2018-03-13 09:56 | Pre-Sedation Evaluation ---
Pre-sedation evaluation - Pre-sedation checklist Date of procedure: 03/13/18 Procedure: EGD/Colonoscopy Recent Vitals: Last Vital Signs Temp 97.7 F 03/13/18 06:26 Pulse 109 03/13/18 06:26 Resp 17 03/13/18 06:26 BP 147/99 03/13/18 06:26 Pulse Ox 91 03/13/18 06:26 H&P (including ROS) documented in medical record: Yes Previous reaction to sedatives/anesthetics: No Dietary Status: NPO after Midnight Dentition: No loose teeth or bridges, dentures removed ASA Classification *see protocol: CLASS III-Severe systemic disease
[2018-03-13] MEDS: *HR* Midazolam HCl 5 MG/5 ML VIAL IVP ONE ×2 (10:00→10:15)
[2018-03-13] MEDS ORDERED: 0.9 % Sodium Chloride 1,000 ML IVC SCH (10:00)
--- NOTE | 2018-03-13 11:15 | General Surgery Progress Note ---
Date of Encounter: 03/13/18 Time of Encounter: 11:13 - Assessment and Plan (1) Lower GI bleed Current Visit: Yes Status: Acute 67F with LGIB s/p EGD, colonoscopy; positive for diverticulosis and grade I hemorrhoids; no active bleeding diet as tolerated trend h/h cares per primary team no acute surgery Subjective Patient reports: no new complaints Objective Vital Signs - Last 8 Hours Temp Pulse Resp BP Pulse Ox 03/13/18 10:20 102 16 173/85 94 03/13/18 10:15 98 16 172/88 95 03/13/18 10:10 101 16 179/88 93 03/13/18 10:05 110 16 176/93 98 03/13/18 10:00 106 18 178/105 98 03/13/18 09:57 103 18 151/103 95 03/13/18 09:47 97.8 F 103 18 151/103 95 03/13/18 06:26 97.7 F 109 17 147/99 91 03/13/18 04:17 98.1 F 98 16 159/106 94 Intake and Output 03/12/18 03/13/18 03/13/18 23:59 07:59 15:59 Intake Total 211 / 211 110 / 110 Balance 211 / 211 110 / 110 Intake: IV Fluids 110 / 110 Heparin 25,000 UNIT/500 ML D5W / 110 / 110 25,000 unit In 500 ml @ 14 UNIT /KG/HR 16.968 mls/hr IVC .Q24H [facility] Rx#:[id number] Other: Weight 60.6 kg Patient Weight 03/13/18 23:59 Weight 60.6 kg - General physical appearance no distress - Respiratory normal expansion, normal respiratory effort - Cardiovascular Cardiovascular exam: Present: RRR - Abdomen Abdomen: Present: soft, non tender - Neurologic CN 2-12 grossly intact - Psychiatric oriented to time, oriented to person, oriented to place - Labs 03/13/18 08:10 03/13/18 08:10 Diabetes panel 03/13/18 Range/Units 08:10 Sodium 137 (136-145) mEq/L Potassium 3.7 (3.5-5.1) mEq/L Chloride 103 (98-107) mEq/L Carbon Dioxide 25 (23-29) mEq/L BUN 10 (8-23) mg/dL Creatinine 0.78 (0.60-1.20) mg/dL Glucose 138 H (70-105) mg/dL Calcium 9.1 (8.6-10.3) mg/dL Calcium panel 03/13/18 Range/Units 08:10 Calcium 9.1 (8.6-10.3) mg/dL Pituitary panel 03/13/18 Range/Units 08:10 Sodium 137 (136-145) mEq/L Potassium 3.7 (3.5-5.1) mEq/L Chloride 103 (98-107) mEq/L Carbon Dioxide 25 (23-29) mEq/L BUN 10 (8-23) mg/dL Creatinine 0.78 (0.60-1.20) mg/dL Glucose 138 H (70-105) mg/dL Calcium 9.1 (8.6-10.3) mg/dL Adrenal panel 03/13/18 Range/Units 08:10 Sodium 137 (136-145) mEq/L Potassium 3.7 (3.5-5.1) mEq/L Chloride 103 (98-107) mEq/L Carbon Dioxide 25 (23-29) mEq/L BUN 10 (8-23) mg/dL Creatinine 0.78 (0.60-1.20) mg/dL Glucose 138 H (70-105) mg/dL Calcium 9.1 (8.6-10.3) mg/dL Consult Discharge Plan - Plan Referrals: Funmilayo Plasencia [Primary Care Provider] - (Please follow up with your primary care provider. Call to schedule after your hospital discharge. )
--- NOTE | 2018-03-13 11:55 | Internal Med Progress Note ---
Hospitalist Progress Note - Encounter Date of Encounter: 03/13/18 Time of Encounter: 11:55 - Subjective Interval History: Seen and examined this morning at bedside. No acute overnight events. Denies any chest pain or palpitation or dizziness. Breathing improved. no new complain. anxious somewhat - Exam Vitals: Temp Pulse Resp BP Pulse Ox 97.8 F 102 16 173/85 94 03/13/18 09:47 03/13/18 10:20 03/13/18 10:20 03/13/18 10:20 03/13/18 10:20 Exam: General: In no acute distress. Conversant. Respiratory exam: no accessory muscle use. Rales on Lt mid lung field, improved but still present. Cardiovascular exam: tachycardic, +S1, +S2. no murmur, gallop, rubs. Rt breast implant noted. Without chest wall tenderness or erythema. GI/Abdominal exam: Non-tender, Non-distended, normal bowel sounds, soft, no peritoneal signs. Extremities exam: full ROM, no pedal edema, warm, pulses palpable in b/l lower extremities. no calf tenderness Neurological exam: CN II-XII intact, AO X3, no focal deficits. no pronater drift, facial droop, speech deficit Skin exam: No skin rash, ulcer, purpura or ecchymosis. - Summary of Assessment and Plan Summary of Assessment and Plan: Shortness of breath - CHF vs PNA vs multifactorial - Tachycardic intially, no white count - BNP 5206 in [facility]. Today 1500s - Echo in December with EF 45-50%, Mild diastolic dysfunction - CTA at [facility] shows bilateral pleural effusions, bilateral lower lobe consolidations - c/w azithromycin and rocephin for CAP. BLood cultures 03/11/18 NGTD - Trend troponin 0.06->0.04. Currently chest pain free. EKG with LVH and tachycardia with T-wave inversion and ST depressions in V4-v6. No stress test in last 2 years that patient remembers. - ECHO with severely reduced EF and global hypokinesis. [facility] planned for tomorrow. Started on lisinopril and BB. - c/w Fluid restriction. c/w lasix - Cardiology following. Congestive heart failure - As above Pneumonia -as above Anemia - Hb 8.9. baseline of 12.7 in December 2017 - No complaints of bleeding, however has been on DAPT. on heparin gtt. - Iron panel with likely iron def. - No indications for transfusions at this time. - EGD/Colonoscopy without active bleeding. Diverticulosis and grade 1 hemorrhoids. - monitor H/H NSTEMI - Trop 0.06->0.04 - Suspect demand ischemia - Will stop heparin drip. - Currently without chest pain - [facility] for tomorrow. Suspected Rt breast implant rupture - Based on CT scan - Patient without any complains - Spoke with surgery. Outpatient followup. Hyperlipidemia - c/w home statin Hypertension - c/w BB - Continue to monitor. Stable for now h/o CVA - CVA x2 in June 2017 with use of TPA at [facility] - No neurological defecits - Continue DAPT and statin DVT prophylaxis - heparin - Time Spent with Patient Total time spent is greater than 50% in coordination of care (as documented) at patient's floor/unit and/or counseling patient: Internal Medicine: Result - Labs CBC & Chem 7: 03/13/18 08:10 03/13/18 08:10 Labs: Short CBC 03/13/18 Range/Units 08:10 WBC 6.3 (4.3-11.1) K/mcL Hgb 8.9 L (11.5-15.4) g/dL Hct 28.3 L (35.3-44.9) % Plt Count 405 H (140-400) K/mcL Neutrophils # 3.5 (1.6-8.9) K/mcL BMP 03/13/18 08:10 Sodium 137 Potassium 3.7 Chloride 103 Carbon Dioxide 25 BUN 10 Creatinine 0.78 Glucose 138 H Calcium 9.1 - ABG Interpretation ABG results: PT/INR, D-dimer PT 14.3 Seconds (9.4-12.1) H 03/12/18 07:49 Consult Discharge Plan - Plan Referrals: Funmilayo Plasencia [Primary Care Provider] - (Please follow up with your primary care provider. Call to schedule after your hospital discharge. )
[2018-03-13] MEDS: *HR* Heparin 5,000 UNIT/ML VIAL SQ SCH (20:21)
[2018-03-14] MEDS: *HR* Heparin 5,000 UNIT/ML VIAL SQ SCH ×3 (04:37→22:20)
[2018-03-14] MEDS: Azithromycin 500 MG in D5% in Water 250 ML IVPB SCH (04:38)
[2018-03-14 06:17] LABS: Basophils # 0.1 K/mcL (0.0-0.2); Basophils % 0.9 %; Eosinophils # 0.3 K/mcL (0.0-0.6); Eosinophils % 3.9 %; Hematocrit 29.2 % (35.3-44.9); Hemoglobin 9.2 g/dL (11.5-15.4); Immature Granulocytes % 0.2 % (0-4); Lymphocytes # 2.1 K/mcL (0.6-4.6); Lymphocytes % 32.6 %; Mean Corpuscular HGB Conc 31.5 g/dL (31.6-35.5); Mean Corpuscular Hemoglobin 25.9 pg (28.0-33.3); Mean Corpuscular Volume 82.3 fL (83.0-100.0); Mean Platelet Volume 10.1 fL (9.4-12.4); Monocytes # 0.5 K/mcL (0.0-1.3); Monocytes % 8.3 %; Neutrophils # 3.5 K/mcL (1.6-8.9); Platelet Count 402 K/mcL (140-400); Red Blood Count 3.55 M/mcL (3.82-4.97); Red Cell Distribution Width 14.2 % (11.5-14.5); Segmented Neutrophils % 54.1 %
[2018-03-14 06:24] LABS: INR 1.1; Prothrombin Time 12.5 Seconds (9.4-12.1)
[2018-03-14 06:35] LABS: BUN/Creatinine Ratio 15 (6-26); Blood Urea Nitrogen 12 mg/dL (8-23); Calcium 9.1 mg/dL (8.6-10.3); Carbon Dioxide 26 mEq/L (23-29); Chloride 103 mEq/L (98-107); Glucose 207 mg/dL (70-105); Osmolality,Calculated 288 (280-300); Potassium 3.4 mEq/L (3.5-5.1); Sodium 136 mEq/L (136-145); eGFR For Non-African Americans > 60 (> 60)
[2018-03-14] MEDS: cefTRIAXone 1,000 MG in Water for inj. (sterile) 20 ML 10 ML IVP SCH (08:01)
[2018-03-14] MEDS: Aspirin Enteric Coated 81 MG Tablet PO SCH (08:01)
[2018-03-14] MEDS: Furosemide 40 MG TABLET PO SCH (08:08)
[2018-03-14] MEDS: Metoprolol XL (24 HR) Succ 25 MG TAB.ER.24H PO SCH (08:08)
--- NOTE | 2018-03-14 10:19 | Event Note ---
Date of Encounter: 03/14/18 Time of Encounter: 09:00 - Cardiology Event Note PLan for [facility] today for new cardiomyopathy. Labs reviewed, Hemoglobin stable. ECG and colonoscopy report reviewed with no evidence of active bleeding. Hemoglobin has remained stable on asa, plavix and was previously on heparin drip for several days. Risks versus benefits of LHC explained to patient. Educated with history of CVA, increased risk of CVA. Patient states understanding and agrees with plan. Discussed and reviewed with . Further cardiology recommendations pending LHC.
[2018-03-14] MEDS ORDERED: *HR* Heparin 10,000 UNIT/10 ML VIAL ONE (10:57)
[2018-03-14] MEDS ORDERED: ISOVUE-370 200 ML INFUS..BTL ONE (10:57)
[2018-03-14] MEDS ORDERED: 0.9 % Sodium Chloride 1,000 ML ONE ×3 (10:57→12:59)
[2018-03-14] MEDS ORDERED: Nitroglycerin 1,000 MCG/10 ML VIAL IV ONE ×2 (10:57→13:00)
[2018-03-14] MEDS ORDERED: Heparin 1,000 UNITS/500 mL 500 ML ONE (10:57)
--- NOTE | 2018-03-14 11:00 | Internal Med Progress Note ---
Hospitalist Progress Note - Encounter Date of Encounter: 03/14/18 Time of Encounter: 10:54 - Subjective Interval History: Seen and examined this morning at bedside. No acute overnight events. Denies any chest pain or palpitation or dizziness. Breathing improved. no new complain. - Exam Vitals: Temp Pulse Resp BP Pulse Ox 97.7 F 102 16 139/95 96 03/14/18 07:08 03/14/18 08:26 03/14/18 07:08 03/14/18 08:26 03/14/18 08:13 Exam: General: In no acute distress. Conversant. Respiratory exam: no accessory muscle use. Rales on Lt mid lung field, improved but still present. Cardiovascular exam: RRR, +S1, +S2. no murmur, gallop, rubs. Rt breast implant noted. Without chest wall tenderness or erythema. GI/Abdominal exam: Non-tender, Non-distended, normal bowel sounds, soft, no peritoneal signs. Extremities exam: full ROM, no pedal edema, warm, pulses palpable in b/l lower extremities. no calf tenderness Neurological exam: CN II-XII intact, AO X3, no focal deficits. no pronater drift, facial droop, speech deficit Skin exam: No skin rash, ulcer, purpura or ecchymosis. - Summary of Assessment and Plan Summary of Assessment and Plan: Shortness of breath - CHF vs PNA vs multifactorial - Tachycardic intially, no white count - BNP 5206 in [place]. Today 1500s - Echo in December with EF 45-50%, Mild diastolic dysfunction - CTA at [facility] shows bilateral pleural effusions, bilateral lower lobe consolidations - BLood cultures 03/11/18 NGTD. Stop antibiotics. Likely related to CHF - Trend troponin 0.06->0.04. Currently chest pain free. EKG with LVH and tachycardia with T-wave inversion and ST depressions in V4-v6. No stress test in last 2 years that patient remembers. - ECHO with severely reduced EF and global hypokinesis. [facility] planned for tomorrow. Started on lisinopril and BB. - c/w Fluid restriction. c/w lasix - Cardiology following. Congestive heart failure - As above Pneumonia -as above Anemia - Hb 8.9. baseline of 12.7 in December 2017 - No complaints of bleeding, however has been on DAPT. on heparin gtt. - Iron panel with likely iron def. - No indications for transfusions at this time. - EGD/Colonoscopy without active bleeding. Diverticulosis and grade 1 hemorrhoids. - monitor H/H NSTEMI - Trop 0.06->0.04 - Suspect demand ischemia - Currently without chest pain - [facility] for today. Suspected Rt breast implant rupture - Based on CT scan - Patient without any complains - Spoke with surgery. Outpatient followup. Hyperlipidemia - c/w home statin Hypertension - c/w BB - Continue to monitor. Stable for now h/o CVA - CVA x2 in June 2017 with use of TPA at [facility] - No neurological defecits - Continue DAPT and statin DVT prophylaxis - heparin - Time Spent with Patient Total time spent is greater than 50% in coordination of care (as documented) at patient's floor/unit and/or counseling patient: Internal Medicine: Result - Labs CBC & Chem 7: 03/14/18 05:54 03/14/18 05:54 Labs: Short CBC 03/14/18 Range/Units 05:54 WBC 6.4 (4.3-11.1) K/mcL Hgb 9.2 L (11.5-15.4) g/dL Hct 29.2 L (35.3-44.9) % Plt Count 402 H (140-400) K/mcL Neutrophils # 3.5 (1.6-8.9) K/mcL BMP 03/14/18 05:54 Sodium 136 Potassium 3.4 L Chloride 103 Carbon Dioxide 26 BUN 12 Creatinine 0.80 Glucose 207 H Calcium 9.1 - ABG Interpretation ABG results: PT/INR, D-dimer PT 12.5 Seconds (9.4-12.1) H 03/14/18 05:54 Consult Discharge Plan - Plan Referrals: Funmilayo Plasencia [Primary Care Provider] - (Please follow up with your primary care provider. Call to schedule after your hospital discharge. )
--- NOTE | 2018-03-14 12:31 | Event Note ---
Date of Encounter: 03/14/18 Time of Encounter: 12:30 No active bleeding; h/h stable; diverticulosis and grade I hemorrhoids; recommend high fiber diet; general surgery will sign off; please call with any new questions or concerns
--- NOTE | 2018-03-14 13:02 | Pre-Sedation Evaluation ---
Pre-sedation evaluation - Pre-sedation checklist Date of procedure: 03/14/18 Procedure: cardiac cath Recent Vitals: Last Vital Signs Temp 98.1 F 03/14/18 11:10 Pulse 96 03/14/18 11:10 Resp 16 03/14/18 11:10 BP 105/71 03/14/18 11:10 Pulse Ox 92 03/14/18 11:10 H&P (including ROS) documented in medical record: Yes Previous reaction to sedatives/anesthetics: No Dietary Status: NPO after Midnight Dentition: No loose teeth or bridges, dentures removed Possible difficult airway: No ASA Classification *see protocol: CLASS III-Severe systemic disease Plan of Care: Pt appropriate candidate for procedure/moderate/conscious sedation, Risks/benefits of procedure/sedation discussed w/ patient/family, If not NPO; Risk of intake outweiged by necessity to perform procedure Cardiac Registry (Cardio Only) - Functional Capacity Functional Capacity: >=4 METS with symptoms - Clincal Frailty Scale Clinical Frailty Scale: Vulnerable
[2018-03-14] MEDS ORDERED: *HR* Midazolam HCl 2 MG/2 ML VIAL ONE ×2 (13:07→13:22)
--- NOTE | 2018-03-14 13:54 | Invasive Diagnostic Lab Proc ---
Name: Ratna Diallo Date of Study: 03/14/2018 Date: 1950 Ht: 59.8in Medical Record#: [id number] Age: 67 Wt: 141.32lb Gender: Female BSA: 1.61 Order #: [id number] BMI: 27.78 Physicians Procedure Physician: Asim Aguilar DO Referring MD: Referring MD: Staff Name Position Time In Carlos Enrique Newton RN Shear Grinder Operator Helper 01:05 PM Concetta Bella RT (R) Scrub 01:05 PM Josefina Ley RN Monitor 01:11 PM Procedures Performed Procedure CORONARY ARTERY ANGIO S&I Pre-Procedure Checklist Informed consent is complete signed and on chart. H&P is on chart. ID band is on and ID verified with patient. Patient NPO for procedure The procedure was described for the patient and questions were answered. ECG is on chart. Plan of Care Patient will tolerate the procedure without complications. Adequate level of comfort will be maintained. Hemodynamics will remain stable Patient will recover from procedure without complications. Respiratory function will be maintained. Cardiac rhythm will remain stable. Patient temperature will be maintained. Patient and/or family have verbalized understanding of the procedure. Patient Education Chief Complaint/Reason for Test: Cardiac Cath Developmental Category: Geriatric (65+ years) Developmentally Appropriate for Age: Yes Learning Barriers: None Education Needs: Procedure Education Method: Verbal Information Taught: Cardiac Cath Educational Evaluation: Able to repeat information Intravenous Access Time IV Size Location DC'd Fluid/Drip Rate Units RN 11:20 AM 20g 1 1/4" Patent On Arrival Lt Antecubital Allergies morphine gabapentin Vital Signs Time BP (mmHg) HR (bpm) O2 Sat. RR (bpm) LOC 01:06 PM / % 5 = Fully awake and oriented or at pre-proc level 01:06 PM / % 5 = Fully awake and oriented or at pre-proc level 01:12 PM 162 / 99 100 99 % 21 01:17 PM 165 / 93 100 100 % 25 01:22 PM 150 / 93 97 99 % 22 01:27 PM 166 / 96 105 96 % 26 01:32 PM 164 / 96 105 98 % 33 Procedural Medications Time Medication Dose Units Method Given By 01:11 PM Oxygen 2 L/min nasal cannula Carlos Enrique Newton RN 01:11 PM Versed 2 mg Intravenous Carlos Enrique Newton RN 01:18 PM Lidocaine 2% 10 ml Subcutaneous Asim Aguilar DO 01:22 PM Versed 1 mg Intravenous Carlos Enrique Newton RN ASA Classification: CLASS III- Severe systemic disease (i.e. prior AMI, diabetes with vascular complications, morbid obesity) Snehal Score Preprocedure Postprocedure Activity 2- Moves 4 extremities sustained head lift Activity 2- Moves 4 extremities sustained head lift Circulation 2- SBP +/= 20 points of pre-anesthetic level Circulation 2- SBP +/= 20 points of pre-anesthetic level Consciousness 2- Awake and alert oriented x 3 Consciousness 2- Awake and alert oriented x 3 O2 Saturation 2- Able to maintain O2 satruation of 92% on room air O2 Saturation 2- Able to maintain O2 satruation of 92% on room air Respiratory 2- Able to deep breathe and cough well Respiratory 2- Able to deep breathe and cough well Total Score 10 Total Score 10 Contrast Agent: Isovue Diagnostic Contrast: 50 ml Total Contrast: 50 ml Fluoro Dose: 12 mGy Procedure Log Time Note Enter By 01:04 PM Pt arrived to warehouse laborer 1 at 13:04 tsites 01:05 PM Carlos Enrique Newton RN Position: Shear Grinder Operator Helper Time in: 13:05 tsites 01:05 PM Concetta Bella (R) Position: Scrub Time in: 13:05 tsites 01:06 PM Patient charges- Angio tray pack, Navilyst 3mm J, Pulse Oximetry and ACIST tubing and transducer tsites 01:06 PM Physician arrived 13:06 tsites 01:06 PM Meet and greet completed tsites 01:06 PM Sign in performed according to hospital policy. Informed consent was obtained. tsites 01:06 PM Procedure start 13:06 tsites 01:06 PM Time: 13:06 Patient comfortable and pain free: Yes tsites 01:06 PM Time: 13:06LOC: 5 = Fully awake and oriented or at pre-proc level tsites 01:09 PM CathStat 01:09 PM Vitals capture started with the following parameters, Patient=Adult, Interval=5 min, Initial Lbpagupt=467 mmHg, Deflation Rate=3 mmHg, Cuff placed on Right Arm 01:11 PM Josefina Ley RN Position: Monitor Time in: 13:11 tsites 01:11 PM Hair removed from procedure site in procedure lab using clippers. Bilateral groin prepped with Chloraprep by Concetta BellaDarryl), then patient was draped. Skin intact. tsites 01:11 PM Procedure start 13:11 tsites 01:11 PM Time: 13:11 Oxygen on at 2 L/min per nasal cannula by Carlos Enrique Newton RN tsites 01:11 PM Time: 13:11 Versed 2 mg Intravenous Given by Carlos Enrique Newton RN tsites 01:11 PM NIBP STAT measurement started. 01:12 PM EK=196 bpm, ORVG=680/99 mmhg, SpO2=99.0 %, Resp=21 B/min, EtCO2=32 mmHg 01:14 PM ASA Class CLASS III- Severe systemic disease (i.e. prior AMI, diabetes with vascular complications, morbid obesity) tsites 01:15 PM Recorded ECG: OY=223 Condition=Condition 1 01:17 PM DB=164 bpm, VGMF=577/93 mmhg, XcO2=497.0 %, Resp=25 B/min, EtCO2=33 mmHg 01:18 PM Time out was performed according to hospital policy. Conscious sedation and anesthesia was achieved (see medication log with in this report above) tsites 01:18 PM Time: 13:18 10 ml Lidocaine 2% to right groin Subcutaneous Given by Asim Aguilar DO tsites 01:20 PM Micro-Introducer Kit utilized for sheath placement tsites :21 PM Access obtained by percutaneous puncture. 6Fr 10cm Terumo [place] sheath placed in right Femoral artery. [id number] tsites 01:21 PM 6Fr FR 4 catheter inserted over the wire [facility] tsites :21 PM 0.035 145cm Navilyst 3mmJ wire [id number] tsites :21 PM Pressure channel 2 zeroed. 01:22 PM Time: 13:22 Versed 1 mg Intravenous Given by Carlos Enrique Newton RN tsites 01:22 PM HR=97 bpm, WCQL=374/93 mmhg, SpO2=99.0 %, Resp=22 B/min 01:23 PM RCA angiography performed in multiple views. tsites 01:24 PM Catheter removed tsites 01:24 PM 6Fr FL 4 catheter inserted over the wire [facility] tsites 01:25 PM Recorded Pressure: Ao, HR=97, Condition=Condition 1 (Aorta) Ao 89/56/69 01:25 PM LCA angiography performed in multiple views. tsites 01:26 PM Procedure completed at 13:26 03/14/2018 tsites 01:26 PM Did you address TEX flow and Dominance? Yes tsites 01:27 PM Sign out completed: Radiation Dose 99.37 mGy, 12.3437 Gy/cm2 Fluoro Time: 1.6 Isovue 370 - 200ml contrast 50 ml given by Asim Aguilar DO. Complications: None. The patient was discharged out of the powerhouse laborer in stable condition. Cardiac Rehab Consult needed: YesConfirmed administered medications: Yes tsites 01:27 PM VY=495 bpm, YYRB=945/96 mmhg, SpO2=96.0 %, Resp=26 B/min 01:27 PM Isovue 370 - 200ml,1 Bottle(s) used. tsites 01:28 PM Catheter removed tsites :28 PM Coronary Dominance: right tsites 01:28 PM Lesion found in ostial RCA. Pre Stenosis: 80 Pre TEX Flow: tsites :28 PM Lesion found in Mid RCA. Pre Stenosis: 80 Pre TEX Flow: tsites :29 PM Lesion found in Ostial LMCA. Pre Stenosis: 80 Pre TEX Flow: tsites 01:30 PM Lesion found in Distal LMCA. Pre Stenosis: 80 Pre TEX Flow: tsites 01:30 PM Left Main Coronary Artery with 80% stenosis tsites 01:30 PM Right Coronary, Right Posterior Descending Arteries with Right Posterolateral and Acute Marginal branches with 80 % stenosis. If graft is supplying this area, 0 % stenosis tsites 01:30 PM Arterial sheath pulled using manual compression and V+ Pad for 15 minutes by Sites, Concetta RT (R) tsites 01:30 PM Estimated Blood Loss: minimal tsites 01:30 PM Post ECG NSR tsites 01:31 PM Post Blood Pressure 166/96 tsites 01:31 PM Information taught Cardiac Cath and V+ Pad tsites 01:31 PM Education needs Procedure, Plan of Care, Disease Process, Obtaining further treatment, and Responsibilities of Patient in Care tsites 01:31 PM Learning barriers :None tsites 01:31 PM Education Methods Verbal tsites 01:31 PM Education evaluation Able to repeat information tsites 01:31 PM Site status No bleeding/hematoma - Rt Groin as reported by Sites, Concetta RT (R) at 13:31 tsites 01:31 PM Opsite applied tsites 01:31 PM Plavix, Effient or Brilinta given No tsites 01:31 PM Delay to floor No tsites 01:32 PM Complications: None tsites 01:32 PM MG=256 bpm, RMFY=423/96 mmhg, SpO2=98.0 %, Resp=33 B/min 01:43 PM Report given to Alisa CHILEL Pt taken to 2A Room #23. 13:43 tsites 01:43 PM Patient out of room: 13:43 tsites Complications Complication None None Hemodynamics Pressures Site Systolic/A Wave Diastolic/V Wave Mean AO 89 56 69 Post Procedure Information Blood Pressure: 166/96 mmHg Rhythm: NSR Post procedural instructions were given Surgery consult for CABG Site Checks Time Location Status Staff Sheath In? Note 01:31 PM Rt Groin No bleeding/hematoma Sites, Concetta RT (R) Pulses Time Site Pre-Procedure Post-Procedure Note 03/14/2018 11:20:00 AM Bilateral DP 2+ 03/14/2018 11:20:00 AM Bilateral radial 2+ Updated by Concetta Bella RT (R) on 03/14/2018 1:45:52 PM Concetta Bella RT electronically signed on 03/14/2018 1:47:25 PM with status of Final
[2018-03-14] MEDS ORDERED: Acetaminophen 325 MG TABLET PO ONE (15:41)
--- NOTE | 2018-03-14 16:19 | Cardiothoracic Consult Note ---
Date of Encounter: 03/14/18 Time of Encounter: 16:17 Assessment and Plan (1) NSTEMI (non-ST elevated myocardial infarction) Current Visit: Yes Status: Acute The patient is a 67 year old hypertensive lady with hypercholesterolemia, known cerebrovascular disease, and COPD. The patient was in her usual state of health until early February 2018. At that time she developed shortness of breath, dyspnea on exertion, and chest heaviness. She was diagnosed with bronchitis and treated appropriately with antibiotics; however, the symptoms persisted. She w as evaluated at [facility] emergency department and found to have elevated BNP levels and elevated troponin I levels consistent with CHF and a NSTEMI. She was transferred to [facility] for further cardiac care. The patient underwent a transthoracic echocardiogram which revealed an LVEF 30- 35% with severe left ventricular systolic dysfunction. This had decreased significantly from a transthoracic echocardiogram performed in December 2017. At that time the patient had an LVEF 45-50% and mild left ventricular systolic dysfunction. She underwent a cardiac catheterization today and was found to have severe two-vessel CAD. In particular, the patient had an 80% ostial/p roximal left main lesion and an 80% mid RCA lesion. The patient has been recommended for CABG. I concur with this recommendation. The STS risk calculator reveals an operative mortality risk 2.76%, renal failure risk 1.13%, permanent stroke risk 2.45%, deep sternal wound infection 0.17%, and reoperation risk 2.50%. She gives her informed consent for CABG. However, she will need additional studies and medication adjustments prior to CABG. The patient has had four left hemispheric CVA since May 2017 and will need a carotid duplex to evaluate the severity of her carotid artery disease. In addition she has been on Plavix for the cerebrovascular disease and this will need to be stopped 4-5 days prior to CABG. She is also on an ACEI for the CHF and this will need to be stopped 3 days prior to CABG. Tentatively the patient is scheduled for CABG on Saturday, March 18, 2017. The assessment and plan as outlined above was discussed with the patient and/or family members who expressed understanding and agreement. All questions were answered. - History of Present Illness Consult date: 03/14/18 Requesting physician: Asim Aguilar Consult reason: CABG evaluation Chief complaint: Shortness of breath, dyspnea on exertion History of present illness: Ms. Diallo is a 67 year old hypertensive lady with hypercholesterolemia, known cerebrovascular disease, and COPD. The patient was in her usual state of health until early February 2018. At that time she developed shortness of breath, dyspnea on exertion, and chest heaviness. She was evaluated at an urgent care facility and diagnosed with bronchitis. She was treated appropriately with ant ibiotics; however, her symptoms persisted. She was reevaluated at [facility] emergency department on March 10, 2018 and was found to have elevated BNP levels and troponin I levels consistent with congestive heart failure and a NSTEMI. She was transferred to [facility] for further cardiac care. The patient underwent a transthoracic echocardiogram on March 11, 2018 and was found to have an LVEF 30-35% with severe global and segmental left ventricular systolic dysfunction. This was a significant change from a transthoracic echocardiogram performed in December 2017. The previous echocardiogram revealed an LVEF 45-50% and only mild left ventricular systolic dysfunction. A cardiac catheterization performed today revealed severe two- vessel CAD. In particular, the patient has an 80% ostial/proximal left main lesion, an 80% mid RCA lesion. The patient has been recommended for CABG. Past Med Surg Social Fam HX - Past Medical History Medical history: arthritis, cancer (Bilateral breast cancer), COPD, coronary artery disease, CVA, hyperlipidemia, hypertension Additional medical history: Breast CA (2007,2013) Right side mastectomy (breast reconstruction) , left side lymphectomy Psychiatric history: anxiety, depression - Past Surgical History Surgical History: appendectomy, breast surgery (Right modified radical mastectomy), hysterectomy, orthopedic, other (Left ankle ORIF, left knee Nix's cyst excision), other (Left carotid atherectomy) Additional surgical history: leg sx; cyst removal from left posterior leg - Social History Smoking Status: Former smoker Packs per day: 1PPD x 20YRS Smokeless Tobacco Status: No Alcohol use: none Drug use: none Current living situation: Home - Independent Activity Level: Independent ambulation Recent Out of Country Travel Within the Last 8 Weeks: No Exposure or Possible Exposure to Illness During Travel: No - Family History Father Living Status: Hx Family Cancer: Yes (prostate) Mother Living Status: Medications and Allergies Atorvastatin Calcium [Lipitor] 80 mg PO HS 12/16/17 [History] Cholecalciferol (D-3) [Vitamin D] 2,000 unit PO DAILY 12/16/17 [History] Clopidogrel [Plavix] 75 mg PO DAILY tablet 12/16/17 [Rx] Duloxetine HCl [Cymbalta] 60 mg PO DAILY 12/16/17 [History] Lisinopril [Zestril] 5 mg PO DAILY 12/16/17 [History] Tizanidine HCl [Zanaflex] 2 mg PO HS 12/16/17 [History] clonazePAM [Klonopin] 1 mg PO HS PRN 12/16/17 [History] Aspirin 325 mg PO DAILY 03/11/18 [History] Allergy/AdvReac Type Severity Reaction Status Date / Time morphine AdvReac Unknown See Verified 03/11/18 12:39 Comments gabapentin AdvReac See Verified 03/11/18 12:39 Comments All Systems Review: The remainder of the systems were reviewed and are negative Physical Examination General: Conversant, No Apparent Distress HEENT: Atraumatic, Normocephaly, Trachea midline Neck: No JVD, Normal carotid pulses Cardiac: Reg Rate and Rhythm, Normal S1 and S2, No Murmur Lungs: Normal Breath Sounds, No Wheeze, Rales, Rhonchi Neuro: Alert and responsive, No focal deficits noted, Motor nerves intact, Sensory nerves intact Vascular: Normal capillary refill Abdomen: Soft, Non-tender Skin: No rashes noted on visualized skin Musculoskeletal: No Chest Wall Tenderness Extremities: No Clubbing, No Cyanosis, No Edema, Normal Pulses Results 03/14/18 05:54 03/14/18 05:54 Lab Results, Last 24 hours 03/14/18 03/14/18 03/14/18 05:54 05:54 05:54 WBC 6.4 Hgb 9.2 L Hct 29.2 L Plt Count 402 H INR 1.1 Sodium 136 Potassium 3.4 L Chloride 103 Carbon Dioxide 26 BUN 12 Creatinine 0.80 Glucose 207 H Calcium 9.1 Consult Discharge Plan - Plan Referrals: Funmilayo Plasencia [Primary Care Provider] - (Please follow up with your primary care provider. Call to schedule after your hospital discharge. )
[2018-03-14] MEDS: 0.9 % Sodium Chloride 1,000 ML IVC SCH (21:45)
[2018-03-15] MEDS: *HR* Heparin 5,000 UNIT/ML VIAL SQ SCH ×3 (05:15→21:17)
--- NOTE | 2018-03-15 07:44 | Event Note ---
Date of Encounter: 03/15/18 Time of Encounter: 07:43 - Cardiology Event Note CT surgery consult note reviewed with tentative CABG scheduled for Wednesday. Cardiology will sign off, re-consult if needed. Thank you.
[2018-03-15 08:41] LABS: Basophils # 0.1 K/mcL (0.0-0.2); Basophils % 0.8 %; Eosinophils # 0.2 K/mcL (0.0-0.6); Eosinophils % 2.4 %; Hematocrit 29.1 % (35.3-44.9); Immature Granulocytes % 0.1 % (0-4); Lymphocytes # 1.9 K/mcL (0.6-4.6); Lymphocytes % 26.6 %; Mean Corpuscular HGB Conc 30.9 g/dL (31.6-35.5); Mean Corpuscular Hemoglobin 25.8 pg (28.0-33.3); Mean Corpuscular Volume 83.4 fL (83.0-100.0); Monocytes # 0.6 K/mcL (0.0-1.3); Monocytes % 7.7 %; Neutrophils # 4.4 K/mcL (1.6-8.9); Nucleated Red Blood Cells 0.3 /100 WBC (0); Platelet Count 405 K/mcL (140-400); Red Blood Count 3.49 M/mcL (3.82-4.97); Red Cell Distribution Width 14.4 % (11.5-14.5); Segmented Neutrophils % 62.4 %
[2018-03-15] MEDS: cefTRIAXone 1,000 MG in Water for inj. (sterile) 20 ML 10 ML IVP SCH (08:49)
[2018-03-15] MEDS: 0.9 % Sodium Chloride 1,000 ML IVC SCH ×2 (08:49→13:12)
[2018-03-15] MEDS: Metoprolol XL (24 HR) Succ 25 MG TAB.ER.24H PO SCH (08:50)
[2018-03-15] MEDS: Aspirin Enteric Coated 81 MG Tablet PO SCH (08:50)
[2018-03-15] MEDS: Furosemide 40 MG TABLET PO SCH (08:50)
[2018-03-15] MEDS ORDERED: Azithromycin 250 MG TABLET PO SCH (09:00)
[2018-03-15 09:02] LABS: BUN/Creatinine Ratio 15 (6-26); Blood Urea Nitrogen 11 mg/dL (8-23); Calcium 8.9 mg/dL (8.6-10.3); Carbon Dioxide 24 mEq/L (23-29); Chloride 105 mEq/L (98-107); Glucose 160 mg/dL (70-105); Osmolality,Calculated 285 (280-300); Potassium 3.8 mEq/L (3.5-5.1); Sodium 136 mEq/L (136-145); eGFR For Non-African Americans > 60 (> 60)
--- NOTE | 2018-03-15 09:25 | Cardiothoracic Progress Note ---
Date of Encounter: 03/15/18 Time of Encounter: 09:22 - Assessment and plan (1) NSTEMI (non-ST elevated myocardial infarction) Current Visit: Yes Status: Acute The patient is a 67 year old hypertensive lady with hypercholesterolemia, known cerebrovascular disease, and COPD. The patient was in her usual state of health until early February 2018. At that time she developed shortness of breath, dyspnea on exertion, and chest heaviness. She was diagnosed with bronchitis and treated appropriately with antibiotics; however, the symptoms persisted. She was evaluated at [facility] emergency department and found to have elevated BNP levels and elevated troponin I levels consistent with CHF and a NSTEMI. She was transferred to [facility] for further cardiac care. The patient underwent a transthoracic echocardiogram which revealed an LVEF 30- 35% with severe left ventricular systolic dysfunction. This had decreased significantly from a transthoracic echocardiogram performed in December 2017. At that time the patient had an LVEF 45-50% and mild left ventricular systolic dysfunction. She underwent a cardiac catheterization today and was found to have severe two-vessel CAD. In particular, the patient had an 80% ostial/ proximal left main lesion and an 80% mid RCA lesion. The patient has been recommended for CABG. I concur with this recommendation. The STS risk calculator reveals an operative mortality risk 2.76%, renal failure risk 1.13%, permanent stroke risk 2.45%, deep sternal wound infection 0.17%, and reoperation risk 2.50%. She gives her informed consent for CABG. However, she will need additional studies and medication adjustments prior to CABG. The patient has had four left hemispheric CVA since May 2017 and will need a carotid duplex to evaluate the severity of her carotid artery disease. In addition she has been on Plavix for the cerebrovascular disease and this will need to be stopped 4-5 days prior to CABG. She is also on an ACEI for the CHF and this will need to be stopped 3 days prior to CABG. Tentatively the patient is scheduled for CABG on Saturday, March 18, 2017. The assessment and plan as outlined above was discussed with the patient and/or family members who expressed understanding and agreement. All questions were answered. - Subjective Interval history: The patient remained hemodynamically stable overnight. She had no chest pain. Vital Signs, Last 4 Hours Temp Pulse Resp BP Pulse Ox 03/15/18 07:39 97.8 F 107 18 137/92 95 Oxgyen Flow Rate Oxygen Flow Rate (LPM) 2 Weight 03/13/18 03/14/18 03/15/18 23:59 23:59 23:59 Weight 60.6 kg 64.41 kg 65.2 kg - Physical Examination General: Conversant, No Apparent Distress Neck: No JVD, Normal carotid pulses Cardiac: Reg Rate and Rhythm, Normal S1 and S2, No Murmur Lungs: Normal Breath Sounds, No Wheeze, Rales, Rhonchi Neuro: Alert and responsive, No focal deficits noted, Motor nerves intact, Sensory nerves intact Vascular: Normal capillary refill Musculoskeletal: No Chest Wall Tenderness Extremities: No Clubbing, No Cyanosis, No Edema, Normal Pulses - Labs 03/15/18 08:14 03/15/18 08:14 Lab Results, Last 24 hours 03/15/18 03/15/18 08:14 08:14 WBC 7.1 Hgb 9.0 L Hct 29.1 L Plt Count 405 H Sodium 136 Potassium 3.8 Chloride 105 Carbon Dioxide 24 BUN 11 Creatinine 0.71 Glucose 160 H Calcium 8.9 Consult Discharge Plan - Plan Referrals: Funmilayo Plasencia [Primary Care Provider] - (Please follow up with your primary care provider. Call to schedule after your hospital discharge. )
[2018-03-15] MEDS: Heparin 25,000 UNIT/500 ML D5W 25,000 UNIT/500 ML BAG IVC SCH (13:14)
--- NOTE | 2018-03-15 16:25 | Internal Med Progress Note ---
Hospitalist Progress Note - Encounter Date of Encounter: 03/15/18 Time of Encounter: 11:00 - Subjective Interval History: Patient awaiting CABG per cardiothoracic surgery tentatively scheduled for 03/18/18. Patient's Plavix and lisinopril being held per cardiothoracic surgery recommendations. - Exam Vitals: Temp Pulse Resp BP Pulse Ox 97.8 F 102 18 122/83 97 03/15/18 11:00 03/15/18 11:00 03/15/18 11:00 03/15/18 11:00 03/15/18 11:00 Exam: Gen.: Nonacute distress, alert and oriented 3 ENT: Mucosal membranes moist Respiratory: Lungs are clear to auscultation bilaterally without any wheezing rhonchi or rales Cardiovascular: Normal S1 and S2 regular rate rhythm no murmurs rubs or gallops Abdomen: Soft, nontender and nondistended with positive bowel sounds Extremities: No lower extremity edema Skin: Normal color - Assessment and Plan (1) NSTEMI (non-ST elevated myocardial infarction) Current Visit: Yes Status: Acute Assessment and Plan: Patient with elevated troponin and repeat echocardiogram on 03/11/18 which showed LVEF of 30-35% with severe global and segmental left ventricular systolic dysfunction in addition to mild right ventricular hypokinesis Left heart catheterization revealed severe two-vessel coronary arterial disease Cardiothoracic surgery consult with recommendations for CABG procedure 10 rescheduled for 03/18/18 Patient's Plavix and lisinopril being held per cardiothoracic surgery recommendations. (2) Congestive heart failure Current Visit: Yes Status: Acute Assessment and Plan: Patient with BNP in the 1500s on admission treated with IV Lasix for acute on chronic systolic/diastolic heart failure. Continue patient's home dose of furosemide 40 mg twice daily (3) Pneumonia Current Visit: Yes Status: Acute Assessment and Plan: Will continue IV ceftriaxone and IV azithromycin (4) CVA (cerebral vascular accident) Current Visit: Yes Status: Chronic Assessment and Plan: CVA x2 in June 2017 with use of TPA at [facility] Patient's Plavix currently being held due to anticipated CABG procedure as above (5) Hyperlipidemia Current Visit: Yes Status: Chronic Assessment and Plan: Continue statin (6) Hypertension Current Visit: Yes Status: Chronic Assessment and Plan: Controlled; continue beta mark (7) Anemia Current Visit: Yes Status: Acute Assessment and Plan: Patient with acute anemia; hemoglobin stable at 9.0 this morning EGD/Colonoscopy without active bleeding. Diverticulosis and grade 1 hemorrhoids. Will continue to monitor H&H DVT Prophylaxis: Heparin subcutaneous - Time Spent with Patient Total time spent is greater than 50% in coordination of care (as documented) at patient's floor/unit and/or counseling patient: Internal Medicine: Result - Labs CBC & Chem 7: 03/15/18 08:14 03/15/18 08:14 Labs: Short CBC 03/15/18 Range/Units 08:14 WBC 7.1 (4.3-11.1) K/mcL Hgb 9.0 L (11.5-15.4) g/dL Hct 29.1 L (35.3-44.9) % Plt Count 405 H (140-400) K/mcL Neutrophils # 4.4 (1.6-8.9) K/mcL BMP 03/15/18 08:14 Sodium 136 Potassium 3.8 Chloride 105 Carbon Dioxide 24 BUN 11 Creatinine 0.71 Glucose 160 H Calcium 8.9 - ABG Interpretation ABG results: PT/INR, D-dimer PT 12.5 Seconds (9.4-12.1) H 03/14/18 05:54 Consult Discharge Plan - Plan Referrals: Funmilayo Plasencia [Primary Care Provider] - (Please follow up with your primary care provider. Call to schedule after your hospital discharge. ) (2) Congestive heart failure Qualifiers: Heart failure type: combined systolic and diastolic Heart failure chronicity: acute on chronic Qualified Code(s): I50.43 - Acute on chronic combined systolic (congestive) and diastolic (congestive) heart failure (3) Pneumonia Qualifiers: Pneumonia type: due to unspecified organism Laterality: bilateral Lung location: lower lobe of lung Qualified Code(s): J18.1 - Lobar pneumonia, unspecified organism (4) CVA (cerebral vascular accident) Qualifiers: CVA mechanism: unspecified Qualified Code(s): I63.9 - Cerebral infarction, unspecified (5) Hyperlipidemia Qualifiers: Hyperlipidemia type: unspecified Qualified Code(s): E78.5 - Hyperlipidemia, unspecified (6) Hypertension Qualifiers: Hypertension type: essential hypertension Qualified Code(s): I10 - Essential (primary) hypertension (7) Anemia Qualifiers: Anemia type: unspecified type Qualified Code(s): D64.9 - Anemia, unspecified
[2018-03-16] MEDS: *HR* Heparin 5,000 UNIT/ML VIAL SQ SCH ×3 (05:23→20:22)
[2018-03-16] MEDS: Aspirin Enteric Coated 81 MG Tablet PO SCH (08:53)
[2018-03-16] MEDS: Furosemide 40 MG TABLET PO SCH (08:53)
[2018-03-16] MEDS: Metoprolol XL (24 HR) Succ 25 MG TAB.ER.24H PO SCH (08:53)
[2018-03-16] MEDS: cefTRIAXone 1,000 MG in Water for inj. (sterile) 20 ML 10 ML IVP SCH (08:53)
--- NOTE | 2018-03-16 09:50 | Cardiothoracic Progress Note ---
Date of Encounter: 03/16/18 Time of Encounter: 09:15 - Assessment and plan (1) NSTEMI (non-ST elevated myocardial infarction) Current Visit: Yes Status: Acute The patient is a 67 year old hypertensive lady with hypercholesterolemia, known cerebrovascular disease, and COPD. The patient was in her usual state of health until early February 2018. At that time she developed shortness of breath, dyspnea on exertion, and chest heaviness. She was diagnosed with bronchitis and treated appropriately with antibiotics; however, the symptoms persisted. She was evaluated at [facility] emergency department and found to have elevated BNP levels and elevated troponin I levels consistent with CHF and a NSTEMI. She was transferred to [facility] for further cardiac care. The patient underwent a transthoracic echocardiogram which revealed an LVEF 30- 35% with severe left ventricular systolic dysfunction. This had decreased significantly from a transthoracic echocardiogram performed in December 2017. At that time the patient had an LVEF 45-50% and mild left ventricular systolic dysfunction. She underwent a cardiac catheterization today and was found to have severe two-vessel CAD. In particular, the patient had an 80% ostial/ proximal left main lesion and an 80% mid RCA lesion. The patient has been recommended for CABG. I concur with this recommendation. The STS risk calculator reveals an operative mortality risk 2.76%, renal failure risk 1.13%, permanent stroke risk 2.45%, deep sternal wound infection 0.17%, and reoperation risk 2.50%. She gives her informed consent for CABG. Tentatively the patient is scheduled for CABG on Saturday, March 18, 2017. The assessment and plan as outlined above was discussed with the patient and/or family members who expressed understanding and agreement. All questions were ans wered. - Subjective Interval history: The patient remained hemodynamically stable overnight. She had no chest pain. Vital Signs, Last 4 Hours Temp Pulse Resp BP Pulse Ox 03/16/18 07:18 98.0 F 100 18 153/98 92 Oxgyen Flow Rate Oxygen Flow Rate (LPM) 2 Weight 03/14/18 03/15/18 03/16/18 23:59 23:59 23:59 Weight 64.41 kg 64.9 kg - Physical Examination General: Conversant, No Apparent Distress Neck: No JVD, Normal carotid pulses Cardiac: Reg Rate and Rhythm, Normal S1 and S2, No Murmur Lungs: Normal Breath Sounds, No Wheeze, Rales, Rhonchi Neuro: Alert and responsive, No focal deficits noted Vascular: Normal capillary refill Extremities: No Clubbing, No Cyanosis, No Edema - Labs 03/15/18 08:14 03/15/18 08:14 Consult Discharge Plan - Plan Referrals: Funmilayo Plasencia [Primary Care Provider] - (Please follow up with your primary care provider. Call to schedule after your hospital discharge. )
--- NOTE | 2018-03-16 10:08 | Internal Med Progress Note ---
Hospitalist Progress Note - Encounter Date of Encounter: 03/16/18 Time of Encounter: 11:00 - Subjective Interval History: Patient awaiting CABG per cardiothoracic surgery tentatively scheduled for 03/18/18. Patient's Plavix and lisinopril being held per cardiothoracic surgery recommendations. Continuing treatment for community acquired pneumonia with IV antibiotics Patient also with acute anemia but hemoglobin remains stable and GI workup has been negative - Exam Vitals: Temp Pulse Resp BP Pulse Ox 98.0 F 100 18 153/98 92 03/16/18 07:18 03/16/18 07:18 03/16/18 07:18 03/16/18 07:18 03/16/18 07:18 Exam: Gen.: Nonacute distress, alert and oriented 3 ENT: Mucosal membranes moist Respiratory: Lungs are clear to auscultation bilaterally without any wheezing rhonchi or rales Cardiovascular: Normal S1 and S2 regular rate rhythm no murmurs rubs or gallops Abdomen: Soft, nontender and nondistended with positive bowel sounds Extremities: No lower extremity edema Skin: Normal color - Assessment and Plan (1) NSTEMI (non-ST elevated myocardial infarction) Current Visit: Yes Status: Acute Assessment and Plan: Patient with elevated troponin and repeat echocardiogram on 03/11/18 which showed LVEF of 30-35% with severe global and segmental left ventricular systolic dysfunction in addition to mild right ventricular hypokinesis Left heart catheterization revealed severe two-vessel coronary arterial disease Cardiothoracic surgery consult with recommendations for CABG procedure 10 rescheduled for 03/18/18 Patient's Plavix and lisinopril being held per cardiothoracic surgery recommendations. (2) Congestive heart failure Current Visit: Yes Status: Acute Assessment and Plan: Patient with BNP in the 1500s on admission treated with IV Lasix for acute on chronic systolic/diastolic heart failure. Continue patient's home dose of furosemide 40 mg twice daily (3) Pneumonia Current Visit: Yes Status: Acute Assessment and Plan: Will continue IV ceftriaxone and IV azithromycin (4) CVA (cerebral vascular accident) Current Visit: Yes Status: Chronic Assessment and Plan: CVA x2 in June 2017 with use of TPA at [facility] Patient's Plavix currently being held due to anticipated CABG procedure as above (5) Hyperlipidemia Current Visit: Yes Status: Chronic Assessment and Plan: Continue statin (6) Hypertension Current Visit: Yes Status: Chronic Assessment and Plan: Controlled; continue beta mark (7) Anemia Current Visit: Yes Status: Acute Assessment and Plan: Patient with acute anemia; hemoglobin remains stable EGD/Colonoscopy without active bleeding. Diverticulosis and grade 1 hemorrhoids. Will continue to monitor H&H DVT Prophylaxis: Heparin subcutaneous - Time Spent with Patient Total time spent is greater than 50% in coordination of care (as documented) at patient's floor/unit and/or counseling patient: Internal Medicine: Result - Labs CBC & Chem 7: 03/16/18 10:50 03/16/18 10:50 - ABG Interpretation ABG results: PT/INR, D-dimer PT 12.5 Seconds (9.4-12.1) H 03/14/18 05:54 Consult Discharge Plan - Plan Referrals: Funmilayo Plasencia [Primary Care Provider] - (Please follow up with your primary care provider. Call to schedule after your hospital discharge. ) (2) Congestive heart failure Qualifiers: Heart failure type: combined systolic and diastolic Heart failure chronicity: acute on chronic Qualified Code(s): I50.43 - Acute on chronic combined systolic (congestive) and diastolic (congestive) heart failure (3) Pneumonia Qualifiers: Pneumonia type: due to unspecified organism Laterality: bilateral Lung location: lower lobe of lung Qualified Code(s): J18.1 - Lobar pneumonia, unspecified organism (4) CVA (cerebral vascular accident) Qualifiers: CVA mechanism: unspecified Qualified Code(s): I63.9 - Cerebral infarction, unspecified (5) Hyperlipidemia Qualifiers: Hyperlipidemia type: unspecified Qualified Code(s): E78.5 - Hyperlipidemia, unspecified (6) Hypertension Qualifiers: Hypertension type: essential hypertension Qualified Code(s): I10 - Essential (primary) hypertension (7) Anemia Qualifiers: Anemia type: unspecified type Qualified Code(s): D64.9 - Anemia, unspecified
[2018-03-16 11:15] LABS: Basophils # 0.1 K/mcL (0.0-0.2); Basophils % 0.8 %; Eosinophils # 0.1 K/mcL (0.0-0.6); Eosinophils % 1.7 %; Hematocrit 27.6 % (35.3-44.9); Hemoglobin 8.5 g/dL (11.5-15.4); Immature Granulocytes % 0.3 % (0-4); Lymphocytes # 2.1 K/mcL (0.6-4.6); Lymphocytes % 29.1 %; Mean Corpuscular HGB Conc 30.8 g/dL (31.6-35.5); Mean Corpuscular Hemoglobin 25.7 pg (28.0-33.3); Mean Corpuscular Volume 83.4 fL (83.0-100.0); Monocytes # 0.6 K/mcL (0.0-1.3); Monocytes % 8.8 %; Neutrophils # 4.2 K/mcL (1.6-8.9); Nucleated Red Blood Cells 0.3 /100 WBC (0); Platelet Count 380 K/mcL (140-400); Red Blood Count 3.31 M/mcL (3.82-4.97); Red Cell Distribution Width 14.4 % (11.5-14.5); Segmented Neutrophils % 59.3 %
[2018-03-16 11:24] LABS: BUN/Creatinine Ratio 16 (6-26); Blood Urea Nitrogen 12 mg/dL (8-23); Calcium 8.8 mg/dL (8.6-10.3); Carbon Dioxide 28 mEq/L (23-29); Chloride 104 mEq/L (98-107); Glucose 171 mg/dL (70-105); Osmolality,Calculated 290 (280-300); Potassium 3.6 mEq/L (3.5-5.1); Sodium 138 mEq/L (136-145); eGFR For Non-African Americans > 60 (> 60)
[2018-03-16] MEDS: clonazePAM 1 MG TABLET PO PRN (23:02)
[2018-03-17] MEDS: *HR* Heparin 5,000 UNIT/ML VIAL SQ SCH ×3 (06:19→21:03)
--- NOTE | 2018-03-17 08:31 | Internal Med Progress Note ---
Hospitalist Progress Note - Encounter Date of Encounter: 03/17/18 Time of Encounter: 11:00 - Subjective Interval History: Patient awaiting CABG per cardiothoracic surgery tentatively scheduled for 03/18/18. - Exam Vitals: Temp Pulse Resp BP Pulse Ox 98.5 F 102 15 129/79 93 03/17/18 07:09 03/17/18 07:09 03/17/18 07:09 03/17/18 07:09 03/17/18 07:09 Exam: Gen.: Nonacute distress, alert and oriented 3 ENT: Mucosal membranes moist Respiratory: Lungs are clear to auscultation bilaterally without any wheezing rhonchi or rales Cardiovascular: Normal S1 and S2 regular rate rhythm no murmurs rubs or gallops Abdomen: Soft, nontender and nondistended with positive bowel sounds Extremities: No lower extremity edema Skin: Normal color - Assessment and Plan (1) NSTEMI (non-ST elevated myocardial infarction) Current Visit: Yes Status: Acute Assessment and Plan: Patient with elevated troponin and repeat echocardiogram on 03/11/18 which sh owed LVEF of 30-35% with severe global and segmental left ventricular systolic dysfunction in addition to mild right ventricular hypokinesis Left heart catheterization revealed severe two-vessel coronary arterial disease Cardiothoracic surgery consult with recommendations for CABG procedure 10 resc heduled for 03/18/18 Patient's Plavix and lisinopril being held per cardiothoracic surgery recommendations. (2) Congestive heart failure Current Visit: Yes Status: Acute Assessment and Plan: Patient with BNP in the 1500s on admission treated with IV Lasix for acute on chronic systolic/diastolic heart failure. Patient now euvolemic therefore IV diuresis discontinued. Continue patient's home dose of furosemide 40 mg twice daily (3) Pneumonia Current Visit: Yes Status: Acute Assessment and Plan: Patient will complete day 7 of 7 today of antibiotics with IV ceftriaxone (4) CVA (cerebral vascular accident) Current Visit: Yes Status: Chronic Assessment and Plan: CVA x2 in June 2017 with use of TPA at [facility] Patient's Plavix currently being held due to anticipated CABG procedure as above (5) Hyperlipidemia Current Visit: Yes Status: Chronic Assessment and Plan: Continue statin (6) Hypertension Current Visit: Yes Status: Chronic Assessment and Plan: Controlled; continue beta mark (7) Anemia Current Visit: Yes Status: Acute Assessment and Plan: Patient with acute anemia; hemoglobin remains stable EGD/Colonoscopy without active bleeding. Diverticulosis and grade 1 hemorrhoids. Will continue to monitor H&H (8) History of breast cancer Current Visit: Yes Status: Acute Assessment and Plan: Patient with history of breast cancer and 2007 and 2013 Status post right sided mastectomy with breast reconstruction and left-sided lumpectomy DVT Prophylaxis: Subcutaneous heparin - Time Spent with Patient Total time spent is greater than 50% in coordination of care (as documented) at patient's floor/unit and/or counseling patient: Internal Medicine: Result - Labs CBC & Chem 7: 03/16/18 10:50 03/16/18 10:50 Labs: Short CBC 03/16/18 Range/Units 10:50 WBC 7.2 (4.3-11.1) K/mcL Hgb 8.5 L (11.5-15.4) g/dL Hct 27.6 L (35.3-44.9) % Plt Count 380 (140-400) K/mcL Neutrophils # 4.2 (1.6-8.9) K/mcL BMP 03/16/18 10:50 Sodium 138 Potassium 3.6 Chloride 104 Carbon Dioxide 28 BUN 12 Creatinine 0.75 Glucose 171 H Calcium 8.8 - ABG Interpretation ABG results: PT/INR, D-dimer PT 12.5 Seconds (9.4-12.1) H 03/14/18 05:54 - Impressions Impressions Chest X-Ray 03/16/18 10:09 IMPRESSION: 1. Findings suggestive of pulmonary interstitial edema in setting of enlarged cardiomediastinal silhouette. Correlation with volume status is recommended. 2. No focal consolidation, pneumothorax, or significant pleural effusion. D/ / Cristóbal Ramirez MD / Cristóbal Ramirez MD Interpreting Provider: Cristóbal Ramirez MD Consult Discharge Plan - Plan Referrals: Funmilayo Plasencia [Primary Care Provider] - (Please follow up with your primary care provider. Call to schedule after your hospital discharge. ) (2) Congestive heart failure Qualifiers: Heart failure type: combined systolic and diastolic Heart failure chronicity: acute on chronic Qualified Code(s): I50.43 - Acute on chronic combined systolic (congestive) and diastolic (congestive) heart failure (3) Pneumonia Qualifiers: Pneumonia type: due to unspecified organism Laterality: bilateral Lung location: lower lobe of lung Qualified Code(s): J18.1 - Lobar pneumonia, unspecified organism (4) CVA (cerebral vascular accident) Qualifiers: CVA mechanism: unspecified Qualified Code(s): I63.9 - Cerebral infarction, unspecified (5) Hyperlipidemia Qualifiers: Hyperlipidemia type: unspecified Qualified Code(s): E78.5 - Hyperlipidemia, unspecified (6) Hypertension Qualifiers: Hypertension type: essential hypertension Qualified Code(s): I10 - Essential (primary) hypertension (7) Anemia Qualifiers: Anemia type: unspecified type Qualified Code(s): D64.9 - Anemia, unspecified
[2018-03-17] MEDS: Aspirin Enteric Coated 81 MG Tablet PO SCH (08:44)
[2018-03-17] MEDS: Metoprolol XL (24 HR) Succ 25 MG TAB.ER.24H PO SCH (08:44)
[2018-03-17] MEDS: cefTRIAXone 1,000 MG in Water for inj. (sterile) 20 ML 10 ML IVP SCH (08:44)
[2018-03-17] MEDS: Furosemide 40 MG TABLET PO SCH (08:44)
--- NOTE | 2018-03-17 10:58 | Cardiothoracic Progress Note ---
Date of Encounter: 03/17/18 Time of Encounter: 09:57 - Assessment and plan (1) NSTEMI (non-ST elevated myocardial infarction) Current Visit: Yes Status: Acute The patient is a 67 year old hypertensive lady with hypercholesterolemia, known cerebrovascular disease, and COPD. The patient was in her usual state of health until early February 2018. At that time she developed shortness of breath, dyspnea on exertion, and chest heaviness. She was diagnosed with bronchitis and treated appropriately with antibiotics; however, the symptoms persisted. She was evaluated at [facility] emergency department and found to have elevated BNP levels and elevated troponin I levels consistent with CHF and a NSTEMI. She was transferred to [facility] for further cardiac care. The patient underwent a transthoracic echocardiogram which revealed an LVEF 30- 35% with severe left ventricular systolic dysfunction. This had decreased significantly from a transthoracic echocardiogram performed in December 2017. At that time the patient had an LVEF 45-50% and mild left ventricular systolic dysfunction. She underwent a cardiac catheterization today and was found to have severe two-vessel CAD. In particular, the patient had an 80% ostial/ proximal left main lesion and an 80% mid RCA lesion. The patient has been recommended for CABG. I concur with this recommendation. The STS risk calculator reveals an operative mortality risk 2.76%, renal failure risk 1.13%, permanent stroke risk 2.45%, deep sternal wound infection 0.17%, and reoperation risk 2.50%. She gives her informed consent for CABG. Tentatively the patient is scheduled for CABG on Saturday, March 18, 2017. The assessment and plan as outlined above was discussed with the patient and/or family members who expressed understanding and agreement. All questions were ans wered. - Subjective Interval history: The patient remained hemodynamically stable overnight. She had no chest pain. Vital Signs, Last 4 Hours Temp Pulse Resp BP Pulse Ox 03/17/18 07:09 98.5 F 102 15 129/79 93 Oxgyen Flow Rate Oxygen Flow Rate (LPM) 2 Weight 03/15/18 03/16/18 03/17/18 23:59 23:59 23:59 Weight 64.9 kg 65 kg - Physical Examination General: Conversant, No Apparent Distress Neck: No JVD, Normal carotid pulses Cardiac: Reg Rate and Rhythm, Normal S1 and S2, No Murmur Lungs: Normal Breath Sounds, No Wheeze, Rales, Rhonchi Neuro: Alert and responsive, No focal deficits noted Vascular: Normal capillary refill Musculoskeletal: No Chest Wall Tenderness Extremities: No Clubbing, No Cyanosis, No Edema, Normal Pulses - Labs 03/16/18 10:50 03/16/18 10:50 Lab Results, Last 24 hours 03/16/18 03/16/18 10:50 10:50 WBC 7.2 Hgb 8.5 L Hct 27.6 L Plt Count 380 Sodium 138 Potassium 3.6 Chloride 104 Carbon Dioxide 28 BUN 12 Creatinine 0.75 Glucose 171 H Calcium 8.8 Consult Discharge Plan - Plan Referrals: Funmilayo Plasencia [Primary Care Provider] - (Please follow up with your primary care provider. Call to schedule after your hospital discharge. )
[2018-03-17] MEDS: Chlorhexidine Rinse 15 ML MOUTHWASH MM SCH (21:02)
[2018-03-17] MEDS: clonazePAM 1 MG TABLET PO PRN (21:03)
[2018-03-18] MEDS: Chlorhexidine Rinse 15 ML MOUTHWASH MM SCH ×2 (05:04→19:45)
[2018-03-18] MEDS: *HR* Heparin 5,000 UNIT/ML VIAL SQ SCH (05:14)
[2018-03-18] MEDS: Metoprolol XL (24 HR) Succ 25 MG TAB.ER.24H PO SCH (06:36)
[2018-03-18] MEDS: Aspirin Enteric Coated 81 MG Tablet PO SCH (06:36)
[2018-03-18] MEDS ORDERED: NiCARdipine 2.5 MG/10 ML Syringe IVPB ONE (06:47)
[2018-03-18] MEDS ORDERED: Nitroglycerin 25 MG/250 ML INFUS..BTL IVC ONE (06:47)
[2018-03-18] MEDS ORDERED: *HR* Rocuronium Bromide 50 MG/5 ML VIAL ONE (06:54)
[2018-03-18] MEDS ORDERED: *HR* PHENYLEPHRINE 1,000 MCG/10 ML SYRINGE IVP ONE (06:54)
[2018-03-18] MEDS ORDERED: Tranexamic Acid 1,000 MG/10 ML VIAL ONE ×2 (06:55→10:46)
[2018-03-18] MEDS ORDERED: *HR* Etomidate 20 MG/10 ML AMPUL IVP ONE (06:55)
[2018-03-18] MEDS ORDERED: Famotidine 20 MG/2 ML VIAL ONE (06:55)
[2018-03-18] MEDS ORDERED: Protamine Sulfate 250 MG/25 ML VIAL IVP ONE (06:55)
[2018-03-18] MEDS ORDERED: Heparin 1,000 UNITS/500 mL 500 ML ONE (06:56)
[2018-03-18] MEDS ORDERED: CeFAZolin Syr 2,000MG/20 ML 2,000 MG/20 ML SYRINGE IVPB ONE (07:00)
[2018-03-18] MEDS ORDERED: ceFAZolin 2,000 MG in Water for inj. (sterile) 20 ML 10 ML IVP ONE (07:00)
[2018-03-18] MEDS ORDERED: *HR* FentaNYL (PF) 1,000 MCG/20 ML VIAL ONE (07:00)
[2018-03-18] MEDS ORDERED: *HR* Midazolam HCl 5 MG/5 ML VIAL IVP ONE (07:00)
--- NOTE | 2018-03-18 07:20 | Anesthesia Evaluation PreOp ---
Date of Encounter: 03/18/18 Time of Encounter: 07:17 - Past History Planned Operation: CABG Cardiac History: CO (NSTEMI), CHF, Angina, HTN, Hyperlipidemia Pulmonary History: Former smoker, Pack/yr (20), COPD (wears O2 at night) OTM CONSULTANT History: CVA (no residual) Other Medical History: Other (Breast cancer) Anesthesia History: No Prior Anesthetic Complications, Past Anesthesia (right mastectomy with reconstruction, Left breast lumpectomy, ORIF left ankle, Left CEA (Jan 2018 at [facility]), sadiq, MAGEN) Alcohol Use: none Drug use: none Medications and Allergies Atorvastatin Calcium [Lipitor] 80 mg PO HS 12/16/17 [History] Cholecalciferol (D-3) [Vitamin D] 2,000 unit PO DAILY 12/16/17 [History] Clopidogrel [Plavix] 75 mg PO DAILY tablet 12/16/17 [Rx] Duloxetine HCl [Cymbalta] 60 mg PO DAILY 12/16/17 [History] Lisinopril [Zestril] 5 mg PO DAILY 12/16/17 [History] Tizanidine HCl [Zanaflex] 2 mg PO HS 12/16/17 [History] clonazePAM [Klonopin] 1 mg PO HS PRN 12/16/17 [History] Aspirin 325 mg PO DAILY 03/11/18 [History] Allergy/AdvReac Type Severity Reaction Status Date / Time morphine AdvReac Unknown See Verified 03/11/18 12:39 Comments gabapentin AdvReac See Verified 03/11/18 12:39 Comments - Meds/Allergy Pre-op Review Medications Reviewed: Yes Allergies Reviewed: Yes Beta Blockers on Current Med List: Yes (metoprolol) If Beta Blockers taken, Date/Time (Last Dose taken): today 0636 Anesthesia Results - Labs 03/16/18 10:50 03/16/18 10:50 - Imaging EKG: report reviewed (SINUS RHYTHM POSSIBLE LEFT ATRIAL ENLARGEMENT LEFT VENTRICULAR HYPERTROPHY AND ST-T CHANGE) Additional studies: cath: Impressions: There is severe two vessel coronary artery disease. Recommendations: Optimal medical therapy of patient's disease. Aggressive risk factor modification. Suggest patient have Elective coronary artery bypass surgery. Patient being referred for cardiac rehab. Coronary Dominance: right Lesion Findings/Interventions * Left Main Coronary Artery There is a 80% stenosis in the Distal LMCA. There is a 80% stenosis in the Ostial LMCA. * Left Anterior Descending The LAD is angiographically free of disease. The 1st Diagonal is angiographically free of disease. * Circumflex The Circumflex is angiographically free of disease. The 1st Marginal is angiographically free of disease. * Right Coronary Artery There is a 80% stenosis in the Mid RCA. There is a 80% stenosis in the ostial RCA. carotid studies: Findings Carotid Duplex: Right: The right proximal common carotid artery has a PSV of 96 cm/s and a EDV of 17 cm/s. The right mid common carotid artery has a PSV of 69 cm/s and a EDV of 13 cm/s. The right distal common carotid artery has a PSV of 68 cm/s and a EDV of 22 cm/s. There is nonstenotic plaque in the right bifurcation with a PSV of 57 cm/s and a EDV of 10 cm/s. There is smooth, heterogeneous calcified plaque. There is nonstenotic plaque in the right proximal internal carotid artery with a PSV of 118 cm/s and a EDV of 30 cm/s. There is smooth heterogeneous plaque. The right mid internal carotid artery has a PSV of 82 cm/s and a EDV of 22 cm/s. The right distal internal carotid artery has a PSV of 77 cm/s and a EDV of 23 cm/s. The right eca has a PSV of 104 cm/s and a EDV of 35 cm/s. The right vertebral artery has a PSV of 42 cm/s and a EDV of 16 cm/s. Left: The left proximal common carotid artery has a PSV of 54 cm/s and a EDV of 14 cm/s. There is nonstenotic plaque in the left mid common carotid artery with a PSV of 52 cm/s and a EDV of 18 cm/s. There is smooth heterogeneous plaque. There is nonstenotic plaque in the left distal common carotid artery with a PSV of 50 cm/s and a EDV of 20 cm/s. There is smooth heterogeneous plaque. There is nonstenotic plaque in the left bifurcation with a PSV of 51 cm/s and a EDV of 17 cm/s. There is smooth heterogeneous plaque. The left proximal internal carotid artery has a PSV of 73 cm/s and a EDV of 26 cm/s. The left mid internal carotid artery has a PSV of 76 cm/s and a EDV of 23 cm/s. The left distal internal carotid artery has a PSV of 89 cm/s and a EDV of 29 cm/s. The left eca has a PSV of 300 cm/s and a EDV of 57 cm/s. The left vertebral artery has a PSV of 32 cm/s and a EDV of 11 cm/s. After imaging the patient returned to their room. echo: Impressions: LVEF 30-35%. Severe global and segmental left ventricular systolic dysfunction. Mild right ventricular hypokinesis. Mildly dilated left atrium. Ordering physician notified. Left Ventricular Wall Motion: Rest Echo Findings The apical inferior, mid inferior, basal inferior, basal anterior, mid inferior septal, basal inferior septal, apical lateral, mid anterior lateral, basal anterior lateral, mid anterior septal, mid inferior lateral, basal anterior septal and basal inferior lateral georges were hypokinetic. The apex, apical anterior, mid anterior and apical septal georges were akinetic. Anesthesia Exam Selected Entries 03/18/18 04:01 Temperature 97.5 F L Pulse Rate 102 Respiratory Rate 16 Blood Pressure 122/70 O2 Sat by Pulse Oximetry 95 Oxygen Delivery Method Room Air Weight: 64kg BMI 28 NPO (# of Hours): 8 - HEENT Pupil (Motor): EOMI Mallampati: II Teeth: Edentulous Oral Opening: Greater than 3 - OTM CONSULTANT LOC: Oriented OTM CONSULTANT Motor: Normal RUE, Normal LUE, Normal RLE, Normal LLE, Normal Face OTM CONSULTANT Sensory: Normal: RUE, LUE, RLE, LLE, Face - Cardiac Rhythm: Regular Murmur: None - Pulmonary Breath Sounds: bilateral Clear Respiratory Effort: Symmetrical Anesthesia Assess/Plan ASA Score: 4 Level of consciousness: Cooperative, Oriented, Tranquil Anesthetic Plan: General Monitoring Plan: Standard Monitors, A-Line, PAC, JENNIFER Recovery Plan: ICU (agrees to GA, lines, JENNIFER and blood)
[2018-03-18] MEDS ORDERED: Norepinephrine 4 MG in D5% in Water 250 ML IVC PRN (07:45)
[2018-03-18] MEDS ORDERED: Dextrose 50 % in Water (Vial) 30 ML, Sodium Bicarbonate 20 MEQ, Potassium Chloride 15 M... TH ONE (07:45)
[2018-03-18] MEDS ORDERED: Insulin Human Regular 100 UNIT in 0.9 % Sodium Chloride 100 ML IV PRN (07:45)
[2018-03-18] MEDS ORDERED: Dextrose 50 % in Water (Vial) 30 ML, Sodium Bicarbonate 20 MEQ, Lidocaine 1% 5 ML, Insu... TH ONE ×3 (07:45)
[2018-03-18] MEDS ORDERED: Heparin 15,000 UNIT in 0.9 % Sodium Chloride 500 ML IV ONE (07:45)
--- NOTE | 2018-03-18 08:14 | Internal Med Progress Note ---
Hospitalist Progress Note - Encounter Date of Encounter: 03/18/18 Time of Encounter: 00:00 - Subjective Interval History: Patient to go for CABG today - Exam Vitals: Temp Pulse Resp BP Pulse Ox 97.5 F L 102 16 122/70 95 03/18/18 04:01 03/18/18 04:01 03/18/18 04:01 03/18/18 04:01 03/18/18 04:01 Exam: Gen.: Nonacute distress, alert and oriented 3 Skin: Normal color - Assessment and Plan (1) NSTEMI (non-ST elevated myocardial infarction) Current Visit: Yes Status: Acute Assessment and Plan: Patient with elevated troponin and repeat echocardiogram on 03/11/18 which showed LVEF of 30-35% with severe global and segmental left ventricular systolic dysfunction in addition to mild right ventricular hypokinesis Left heart catheterization revealed severe two-vessel coronary arterial disease Cardiothoracic surgery consult with recommendations for CABG procedure scheduled for today Patient's Plavix and lisinopril being held per cardiothoracic surgery recommendations. (2) Congestive heart failure Current Visit: Yes Status: Acute Assessment and Plan: Patient with BNP in the 1500s on admission treated with IV Lasix for acute on chronic systolic/diastolic heart failure. Patient now euvolemic therefore IV diuresis discontinued. Continue patient's home dose of furosemide 40 mg twice daily (3) Pneumonia Current Visit: Yes Status: Acute Assessment and Plan: Patient has completed a 7 day course of IV ceftriaxone (4) CVA (cerebral vascular accident) Current Visit: Yes Status: Chronic Assessment and Plan: CVA x2 in June 2017 with use of TPA at [facility] Patient's Plavix currently being held due to anticipated CABG procedure as above (5) Hyperlipidemia Current Visit: Yes Status: Chronic Assessment and Plan: Continue statin (6) Hypertension Current Visit: Yes Status: Chronic Assessment and Plan: Controlled; continue beta mark (7) Anemia Current Visit: Yes Status: Acute Assessment and Plan: Patient with acute anemia; hemoglobin remains stable EGD/Colonoscopy without active bleeding. Diverticulosis and grade 1 hemorrhoids. Will continue to monitor H&H (8) History of breast cancer Current Visit: Yes Status: Acute Assessment and Plan: Patient with history of breast cancer and 2007 and 2013 Status post right sided mastectomy with breast reconstruction and left-sided lumpectomy DVT Prophylaxis: Subcutaneous heparin - Time Spent with Patient Total time spent is greater than 50% in coordination of care (as documented) at patient's floor/unit and/or counseling patient: Internal Medicine: Result - Labs CBC & Chem 7: 03/18/18 19:00 03/18/18 19:00 - ABG Interpretation ABG results: PT/INR, D-dimer PT 12.5 Seconds (9.4-12.1) H 03/14/18 05:54 Consult Discharge Plan - Plan Referrals: Funmilayo Plasencia [Primary Care Provider] - (Please follow up with your primary care provider. Call to schedule after your hospital discharge. ) (2) Congestive heart failure Qualifiers: Heart failure type: combined systolic and diastolic Heart failure chronicity: acute on chronic Qualified Code(s): I50.43 - Acute on chronic combined systolic (congestive) and diastolic (congestive) heart failure (3) Pneumonia Qualifiers: Pneumonia type: due to unspecified organism Laterality: bilateral Lung location: lower lobe of lung Qualified Code(s): J18.1 - Lobar pneumonia, unspecified organism (4) CVA (cerebral vascular accident) Qualifiers: CVA mechanism: unspecified Qualified Code(s): I63.9 - Cerebral infarction, unspecified (5) Hyperlipidemia Qualifiers: Hyperlipidemia type: unspecified Qualified Code(s): E78.5 - Hyperlipidemia, unspecified (6) Hypertension Qualifiers: Hypertension type: essential hypertension Qualified Code(s): I10 - Essential (primary) hypertension (7) Anemia Qualifiers: Anemia type: unspecified type Qualified Code(s): D64.9 - Anemia, unspecified
[2018-03-18] MEDS ORDERED: *HR* Heparin 10,000 UNIT/10 ML VIAL IV ONE (08:23)
[2018-03-18] MEDS ORDERED: *HR* Phenylephrine 10 MG/ML VIAL IVC ONE (08:23)
[2018-03-18] MEDS ORDERED: Sodium Bicarbonate 50 MEQ/50 ML VIAL IVC ONE (08:23)
[2018-03-18] MEDS ORDERED: Mannitol 25% vial 12.5 GM/50 ML VIAL IVP ONE (08:23)
[2018-03-18] MEDS ORDERED: *HR* Magnesium Sulfate 2 GM/50 ML PIGGYBACK IVPB ONE (08:23)
[2018-03-18] MEDS ORDERED: Lidocaine 2% Syringe 100 MG/5 ML IV ONE (08:23)
[2018-03-18] MEDS ORDERED: Albumin Human 25% 25 GM/100 ML IV.SOLN IV ONE (08:23)
[2018-03-18 08:38] LABS: ABG Base Excess -1 mEq/L (-2 to 3); ABG Chloride 105 mEq/L (98-107); ABG Glucose 156 mg/dL (60-95); ABG HCO3 27 mEq/L (21-27); ABG Ionized Calcium 1.21 mmol/L (1.15-1.35); ABG Oxygen Saturation 100 % (95-98); ABG PCO2 61 mmHg (35-45); ABG PH 7.25 pH Units (7.32-7.45); ABG PO2 307 mmHg (85-104); ABG TCO2 29 mEq/L (20-26)
--- NOTE | 2018-03-18 09:10 | Anesthesia Procedures ---
Date of Encounter: 03/18/18 Time of Encounter: 07:50 Procedures: Anesthesia - Arterial Line Consent obtained: written consent Time out performed: Yes Sedation: Versed (mg): 2 Sedation: Fentanyl (mcg): 100 Supplemental Oxygen via Nasal Cannula (L/min): 2 Local Anesthetic: Lidocaine 1% (1) Amount of Anesthetic used (mls): 1 Size (Gauge): 20 Length (inches): 5 Technique Used: sterile prep, guide wire technique, direct puncture technique Post-Procedure: line sutured into place, line taped into place, dry sterile dressing placed Patient tolerated procedure: well, no complications Site: Brachial R Comments: very weak pulses in both radial arteries,. Attempt x 3 on left radial, able to access artery but unable to advance catheter. Attempt left brachial, again able to access artery x 3 but unable to advance wire. Attempt right radial, able to visualize with US but not able to access it. Finally able to access right brachial using US guidance and able to place catheter. - Central Line Placement Right IJ Consent obtained: written consent Time out performed: Yes Patient placed on monitor/pulse ox: Yes MD prep: mask, gown, gloves Central line prep: Chlorhexidine scrub, sterile drapes applied Ultrasound used for placement: Yes Technique: Seldinger Lumen Inserted: Introducer Post procedure: sutured in place, good blood return, all ports aspirated, flushed, capped Patient tolerated procedure: well, no complications Complications: none Comments: able to place introducer easily. Burke advanced easily without arrythmia, wedge approx 50cm
[2018-03-18 09:37] LABS: ABG Base Excess -4 mEq/L (-2 to 3); ABG Chloride 108 mEq/L (98-107); ABG Glucose 127 mg/dL (60-95); ABG HCO3 21 mEq/L (21-27); ABG Ionized Calcium 1.01 mmol/L (1.15-1.35); ABG Oxygen Saturation 100 % (95-98); ABG PCO2 40 mmHg (35-45); ABG PH 7.33 pH Units (7.32-7.45); ABG PO2 232 mmHg (85-104); ABG TCO2 22 mEq/L (20-26)
[2018-03-18] MEDS ORDERED: 0.9 % Sodium Chloride 250 ML ONE (10:00)
[2018-03-18] MEDS ORDERED: Albumin Human 5% 50.0 GM/1,000 ML VIAL ONE (10:00)
[2018-03-18 10:12] LABS: ABG Base Excess 4 mEq/L (-2 to 3); ABG Chloride 98 mEq/L (98-107); ABG Glucose 197 mg/dL (60-95); ABG HCO3 28 mEq/L (21-27); ABG Ionized Calcium 0.99 mmol/L (1.15-1.35); ABG Oxygen Saturation 100 % (95-98); ABG PCO2 37 mmHg (35-45); ABG PH 7.49 pH Units (7.32-7.45); ABG PO2 592 mmHg (85-104); ABG TCO2 29 mEq/L (20-26)
[2018-03-18 10:48] LABS: ABG Base Excess 2 mEq/L (-2 to 3); ABG Chloride 98 mEq/L (98-107); ABG Glucose 149 mg/dL (60-95); ABG HCO3 27 mEq/L (21-27); ABG Ionized Calcium 1.04 mmol/L (1.15-1.35); ABG Oxygen Saturation 100 % (95-98); ABG PCO2 40 mmHg (35-45); ABG PH 7.43 pH Units (7.32-7.45); ABG PO2 520 mmHg (85-104); ABG TCO2 28 mEq/L (20-26)
[2018-03-18 11:35] LABS: ABG Base Excess -1 mEq/L (-2 to 3); ABG Chloride 103 mEq/L (98-107); ABG Glucose 70 mg/dL (60-95); ABG HCO3 24 mEq/L (21-27); ABG Ionized Calcium 1.37 mmol/L (1.15-1.35); ABG Oxygen Saturation 99 % (95-98); ABG PCO2 38 mmHg (35-45); ABG PO2 130 mmHg (85-104); ABG TCO2 25 mEq/L (20-26)
[2018-03-18] MEDS ORDERED: Insulin Regular, Human 100 UNIT/ML IV PRN (12:17)
[2018-03-18] MEDS ORDERED: Potassium Chloride 40 MEQ/200 ML BAG IVPB PRN (12:17)
[2018-03-18] MEDS ORDERED: *HR* Dextrose 50 % in Water (Syg) 50 ML SYRINGE IVP PRN (12:17)
--- NOTE | 2018-03-18 12:17 | Operative Note ---
Date of procedure: 03/18/18 Pre-op diagnosis: NSTEMI Procedure: 1. CABG 3 (CARTER to LAD, SVG to OM1, SVG to PDA). 2. Endoscopic vein harvesting, greater saphenous vein from right lower extremity. Implants: None. Complications: None. Anesthesia: GETA Surgeon: Dari Nix Was there an educational assistant present: Yes Crime Lab Technician: Abelardo Longoria Estimated blood loss (cc): 500 Specimen: None. Condition: stable Disposition: ICU Procedure in Detail: INDICATIONS FOR OPERATION: The patient is a 67 year old hypertensive lady with hypercholesterolemia, known cerebrovascular disease, and COPD. The patient was in her usual state of health until early February 2018. At that time she developed shortness of breath, dyspnea on exertion, and chest heaviness. She was diagnosed with bronchitis and treated appropriately with antibiotics; however, the symptoms persisted. She was evaluated at [facility] emergency department and found to have elevated BNP levels and elevated troponin I levels consistent with CHF and a NSTEMI. She was transferred to [facility] for further cardiac care. The patient underwent a transthoracic echocardiogram which revealed an LVEF 30- 35% with severe left ventricular systolic dysfunction. This had decreased significantly from a transthoracic echocardiogram performed in December 2017. At that time the patient had an LVEF 45-50% and mild left ventricular systolic dysfunction. She underwent a cardiac catheterization today and was found to have severe two-vessel CAD. In particular, the patient had an 80% ostial/proximal left main lesion and an 80% mid RCA lesion. The patient has been recommended for CABG. FINDINGS AT OPERATION: The aorta was of normal caliber and had posterior calcification in the aortic arch. The coronary arteries measure approximately 1.5-2 mm in diameter and had mild distal disease. The saphenous vein was harvested endoscopically from the right lower extremity from the mid calf to the groin and was of fair quality, being somewhat smaller in caliber than expected. The total bypass time was 83 minutes, cross-clamp time 45 minutes, intentional hypothermia of 33.3 degrees centigrade. DESCRIPTION OF OPERATION: After obtaining informed operative consent from the patient, she was taken to the operating room where a satisfactory general endotracheal anesthetic was induced. Appropriate monitor lines were placed, the patient's chest, abdomen, and lower extremities were prepped and draped in a sterile fashion. The intraoperative transesophageal echocardiogram showed a diminished LVEF consistent with the findings preoperatively. A dobutamine drip was started for inotropic support with intention of weaning the patient from bypass on the same drip. The greater saphenous vein was harvested endoscopically from the right lower extremity from the mid calf to the groin. The vein was removed, distended, and found to be of fair quality, being somewhat smaller in diameter than expected. The vein however was an adequate bypass conduit. The subtenon's tissue and skin edges were reapproximated running Vicryl sutures. Simultaneously a standard median sternotomy incision was made and the sternum divided. The CARTER was taken down from its bed and side branches divided between hemoclips. The sternum was and the pericardium opened and reflected laterally. The patient was prepared for cannulation by placing pursestring sutures the distal ascending aorta, mid-ascending aorta, and right atrial appendage. The patient was heparinized with used to is greater than 200 seconds, the distal ascending aorta was cannulated all by placement of a dual stage venous cannula through the right atrial appendage and into the inferior vena cava. A stab-in antegrade metabolic and is placed in the mid-ascending aorta. The patient was placed on bypass and temperature allowed to drift to 33.3 degrees centigrade. The distal targets were identified and the aorta was cros sclamped. The patient received 700 mL of cold antegrade Crisler cartilage up to the aortic root and the patient's heart obtained rapid diastolic arrest. The distal RCA/proximal PDA was opened be blade and the vein was anastomosed in an end-to-side fashion using running 7-0 Prolene suture. The anastomosis found to be hemostatic. This process was repeated for the OM1 branch. The anastomosis found to be hemostatic and the patient received a final dose of cold antegrade crystalloid cardioplegia through the aortic root. The LAD was intramyocardial throughout most of its course and became epicardial in the distal 4 cm. An attempt was made to locate the intramyocardial LAD more proximally; however, is was unsuccessful. The distal LAD was opened be blade and measured approximately 1.25-1.5 mm in diameter. The CARTER was anastomosed to the LAD in an end-to-side fashion using running 7-0 Prolene suture. The anastomosis found to be hemostatic and the mammary pedicle was tacked to the epicardium using interrupted 5-0 silk suture. Rewarming was begun during this anastomosis. The aortic cross-clamp was released and the heart distended. The veins were measured and cut appropriate lengths. A partial occluding clamps placed across the mid-ascending aorta and the antegrade cardioplegia cannula was removed. An additional aortotomy site was made 11 blade and both sites were enlarged with 4 mm punch. The veins were anastomosed in an end-to-side fashion to the aorta using a running 5-0 Prolene suture. The vein grafts were occluded with bulldog clamps and de-aired the 25-gauge needle prior to removing the partial occluding clamp. The proximal distal anastomosis found be hemostatic and the proximal anastomoses were marked with radiopaque loops. Two right ventricular temporary epicardial pacing lesion placed and 3 chest tubes were placed, 2 in the mediastinum once the left pleural space. During rewarming the patient's heart regained normal sinus rhythm spontaneously. When the patient's systemic temperature reached 36 degrees centigrade she was ventilated and received volume. She was weaned from bypass and the dobutamine drip was restarted for additional inotropic support. Protamine was administered and the aortic and venous cannulae were removed. He pursestring sutures were secured. The aortic cannulation site was reinforced with a pledgeted 4 Prolene suture and the venous cannulation site was reinforced with a running 4-0 Prolene suture. The pericardium was loosely approximated over the aorta and the upper portion of the right ventricle; however, the lower portion of the right ventricle near the diaphragm could not be covered due to excessive tension. The sternum was reapproximated sternal wires and the pectoralis major fascia, rectus abdominis fascia, subcutaneous tissue, and skin edges were reapproximated running Vicryl sutures. Sterile dressings were applied. The patient was transferred to the ICU in satisfactory postoperative condition. There were no intraoperative complications, and the instrument, needle, and sponge count were corrected at end of operation. - Open Heart Detail ABHILASH (Internal Mammary Artery) Usage: Yes Cardiopulmonary Bypass Time (mins): 83 Aortic Cross Clamp Time (mins): 45 Intentional Hypothermia Temperature (C.): 33.3
[2018-03-18] MEDS ORDERED: Acetaminophen 325 MG TABLET PO PRN (12:19)
[2018-03-18] MEDS ORDERED: Acetaminophen 650 MG RECTAL SUPP RC PRN (12:19)
[2018-03-18] MEDS ORDERED: Calcium Chloride 1,000 MG in 0.9 % Sodium Chloride 100 ML IVPB PRN (12:19)
[2018-03-18] MEDS ORDERED: *HR* Dextrose 50 % in Water (Syg) 50 ML SYRINGE ONE (12:21)
[2018-03-18] MEDS: Nitroglycerin 25 MG/250 ML INFUS..BTL IVC SCH ×2 (12:30→23:35)
[2018-03-18] MEDS ORDERED: niCARdipine 40 MG/200 ML MLS IVC ONE (12:34)
[2018-03-18] MEDS: niCARdipine 40 MG/200 ML MLS IVC SCH ×3 (12:38→23:37)
[2018-03-18 12:45] LABS: Basophils % 0.2 %; Eosinophils # 0.2 K/mcL (0.0-0.6); Eosinophils % 1.5 %; Hematocrit 28.6 % (35.3-44.9); Hemoglobin 9.1 g/dL (11.5-15.4); Lymphocytes # 3.1 K/mcL (0.6-4.6); Mean Corpuscular HGB Conc 31.8 g/dL (31.6-35.5); Mean Corpuscular Hemoglobin 26.5 pg (28.0-33.3); Mean Corpuscular Volume 83.1 fL (83.0-100.0); Mean Platelet Volume 9.7 fL (9.4-12.4); Monocytes # 0.5 K/mcL (0.0-1.3); Monocytes % 3.2 %; Neutrophils # 11.6 K/mcL (1.6-8.9); Nucleated Red Blood Cells 0.2 /100 WBC (0); Platelet Count 136 K/mcL (140-400); Red Blood Count 3.44 M/mcL (3.82-4.97); Red Cell Distribution Width 14.4 % (11.5-14.5); Segmented Neutrophils % 74.1 %
[2018-03-18 12:52] LABS: INR 1.6; Prothrombin Time 18.5 Seconds (9.4-12.1)
[2018-03-18 12:54] LABS: Activated Partial Thrombo Time 36.3 Seconds (26.0-36.0)
[2018-03-18] MEDS: *HR* FentaNYL (PF) 100 MCG/2 ML VIAL IVP PRN (12:57)
[2018-03-18] MEDS: Pantoprazole 40 MG VIAL IVP SCH (13:13)
[2018-03-18] MEDS: *HR* OxyCODONE/APAP 5/325 TABLET PO PRN ×2 (13:13→20:17)
[2018-03-18 13:15] LABS: BUN/Creatinine Ratio 16 (6-26); Blood Urea Nitrogen 12 mg/dL (8-23); Calcium 9.4 mg/dL (8.6-10.3); Carbon Dioxide 24 mEq/L (23-29); Chloride 107 mEq/L (98-107); Glucose 225 mg/dL (70-105); Magnesium 2.6 mg/dL (1.6-2.6); Osmolality,Calculated 295 (280-300); Potassium 3.1 mEq/L (3.5-5.1); Sodium 139 mEq/L (136-145); eGFR For Non-African Americans > 60 (> 60)
[2018-03-18] MEDS: 0.9 % Sodium Chloride w KCl 20 MEQ/1,000 ML MLS IVC SCH (13:33)
[2018-03-18] MEDS: Insulin Human Regular 100 UNIT in 0.9 % Sodium Chloride 100 ML IVC SCH (14:15)
[2018-03-18 16:34] LABS: ABG Base Excess -2 mEq/L (-2 to 3); ABG HCO3 25 mEq/L (21-27); ABG Oxygen Saturation 94 % (95-98); ABG PCO2 51 mmHg (35-45); ABG PH 7.29 pH Units (7.32-7.45); ABG PO2 81 mmHg (85-104); ABG TCO2 26 mEq/L (20-26); Blood Gas Modality ASSIST CONTROL; Blood Gas PEEP 5 cm H2O; Blood Gas Respiration Rate 10; Blood Gas VT 600 cc
[2018-03-18 16:42] LABS: ABG Base Excess 0 mEq/L (-2 to 3); ABG HCO3 24 mEq/L (21-27); ABG Oxygen Saturation 98 % (95-98); ABG PCO2 38 mmHg (35-45); ABG PH 7.42 pH Units (7.32-7.45); ABG PO2 99 mmHg (85-104); ABG TCO2 26 mEq/L (20-26); Blood Gas Modality ASSIST CONTROL; Blood Gas PEEP 5 cm H2O; Blood Gas Respiration Rate 10; Blood Gas VT 600 cc
--- NOTE | 2018-03-18 17:24 | Electrocardiograph Report ---
[address] [place], [place] [address] Test Date: 2018-03-18 Pat Name: Ratna Diallo Department: 109 Room: [facility] Gender: F Operations Supervisor: RADHA : [id number] Requested By: Fermín Nix Order Number: [id number] Reading MD: Blayne Cuevas Measurements Intervals [place] Rate: 93 P: 73 LA: 188 QRS: 42 QRSD: 97 T: 113 QT: 386 QTc: 437 Interpretive Statements SINUS RHYTHM POSSIBLE LEFT ATRIAL ENLARGEMENT ST DEVIATION AND MODERATE T-WAVE ABNORMALITY, CONSIDER LATERAL ISCHEMIA Electronically Signed On 03-18-2018 17:23:33 EST by Blayne Cuevas
[2018-03-18] MEDS: Metoclopramide 10 MG/2 ML VIAL IVP SCH ×2 (17:50→23:00)
[2018-03-18 19:31] LABS: Hematocrit 27.2 % (35.3-44.9); Hemoglobin 8.7 g/dL (11.5-15.4)
[2018-03-18 19:40] LABS: ABG Base Excess 0 mEq/L (-2 to 3); ABG HCO3 24 mEq/L (21-27); ABG Oxygen Saturation 97 % (95-98); ABG PCO2 35 mmHg (35-45); ABG PH 7.44 pH Units (7.32-7.45); ABG PO2 86 mmHg (85-104); ABG TCO2 25 mEq/L (20-26); Blood Gas Modality ASSIST CONTROL; Blood Gas PEEP 5 cm H2O; Blood Gas Respiration Rate 14; Blood Gas VT 600 cc
[2018-03-18] MEDS: Norepinephrine 4 MG in D5% in Water 250 ML IVC SCH (19:40)
[2018-03-18 23:04] LABS: ABG Base Excess 0 mEq/L (-2 to 3); ABG HCO3 23 mEq/L (21-27); ABG Oxygen Saturation 96 % (95-98); ABG PCO2 30 mmHg (35-45); ABG PO2 74 mmHg (85-104); ABG TCO2 24 mEq/L (20-26); Blood Gas Modality ASSIST CONTROL; Blood Gas PEEP 5 cm H2O; Blood Gas Respiration Rate 14; Blood Gas VT 600 cc
[2018-03-19 03:09] LABS: Basophils % 0.2 %; Hematocrit 25.5 % (35.3-44.9); Hemoglobin 8.3 g/dL (11.5-15.4); Immature Granulocytes % 0.6 % (0-4); Lymphocytes # 0.5 K/mcL (0.6-4.6); Lymphocytes % 4.1 %; Mean Corpuscular HGB Conc 32.5 g/dL (31.6-35.5); Mean Corpuscular Hemoglobin 26.8 pg (28.0-33.3); Mean Corpuscular Volume 82.3 fL (83.0-100.0); Mean Platelet Volume 10.1 fL (9.4-12.4); Monocytes # 0.8 K/mcL (0.0-1.3); Monocytes % 6.4 %; Neutrophils # 10.7 K/mcL (1.6-8.9); Nucleated Red Blood Cells 0.2 /100 WBC (0); Platelet Count 182 K/mcL (140-400); Red Cell Distribution Width 14.6 % (11.5-14.5); Segmented Neutrophils % 88.7 %
[2018-03-19 03:16] LABS: INR 1.4; Prothrombin Time 15.8 Seconds (9.4-12.1)
[2018-03-19 03:19] LABS: Activated Partial Thrombo Time 27.2 Seconds (26.0-36.0)
[2018-03-19 03:30] LABS: ABG Base Excess 0 mEq/L (-2 to 3); ABG HCO3 23 mEq/L (21-27); ABG Oxygen Saturation 96 % (95-98); ABG PCO2 28 mmHg (35-45); ABG PH 7.51 pH Units (7.32-7.45); ABG PO2 70 mmHg (85-104); ABG TCO2 24 mEq/L (20-26); Blood Gas PEEP 5 cm H2O; Blood Gas Respiration Rate 14; Blood Gas VT 600 cc
[2018-03-19 03:56] LABS: BUN/Creatinine Ratio 16 (6-26); Blood Urea Nitrogen 13 mg/dL (8-23); Calcium 8.7 mg/dL (8.6-10.3); Carbon Dioxide 22 mEq/L (23-29); Chloride 111 mEq/L (98-107); Glucose 165 mg/dL (70-105); Osmolality,Calculated 298 (280-300); Potassium 3.8 mEq/L (3.5-5.1); Sodium 142 mEq/L (136-145); eGFR For Non-African Americans > 60 (> 60)
[2018-03-19] MEDS: Metoclopramide 10 MG/2 ML VIAL IVP SCH ×4 (05:00→23:01)
[2018-03-19 05:31] LABS: ABG Base Excess 0 mEq/L (-2 to 3); ABG HCO3 25 mEq/L (21-27); ABG Oxygen Saturation 97 % (95-98); ABG PCO2 42 mmHg (35-45); ABG PH 7.39 pH Units (7.32-7.45); ABG PO2 87 mmHg (85-104); ABG TCO2 26 mEq/L (20-26); Blood Gas Modality PRVC; Blood Gas PEEP 5 cm H2O; Blood Gas Pressure Support 5 cm H2O
--- NOTE | 2018-03-19 07:09 | Cardiothoracic Progress Note ---
Date of Encounter: 03/19/18 Time of Encounter: 07:07 - Assessment and plan (1) NSTEMI (non-ST elevated myocardial infarction) Current Visit: Yes Status: Acute The patient is recovering well from her CABG3. Although she remains intubated, she has tolerated a CPAP trial for 4 hours. She is awake, alert, and appropriate. She will be extubated later this morning. The arterial line, Ramos catheter, and [place]-Katie catheter will remain in place for close monitoring given her low ejection fraction preoperatively. The dobutamine drip has been discontinued and she will be started on low-dose Coreg regimen. The patient will be monitored in the ICU today. The assessment and plan as outlined above was discussed with the patient and/or family members who expressed understanding and agreement. All questions were answered. - Subjective Procedure(s) Performed: POD#1 S/P CABG3 Interval history: The patient remained hemodynamically stable overnight. She remains intubated; however, has been on CPAP for 4 hours without difficulty. She will be extubated this morning. Vital Signs, Last 4 Hours Temp Pulse Resp BP Pulse Ox 03/19/18 06:17 21 133/70 95 03/19/18 06:00 98.6 F 112 21 120/59 95 03/19/18 05:00 99.2 F 114 23 112/48 95 03/19/18 04:00 120 24 137/63 92 03/19/18 03:17 14 118/59 95 Oxgyen Flow Rate Oxygen Flow Rate (LPM) 2 Clinical Data, last 8 Hours Output, Chest Tube Drainage 4 Amount [Chest tube #1] Output, Chest Tube Drainage 10 Amount [Chest tube #1] Output, Chest Tube Drainage 30 Amount [Chest tube #1] Output, Chest Tube Drainage 6 Amount [Chest tube #1] Output, Chest Tube Drainage 20 Amount [Chest tube #1] Output, Chest Tube Drainage 10 Amount [Chest tube #1] Output, Chest Tube Drainage 20 Amount [Chest tube #1] Weight 03/17/18 03/18/18 03/19/18 23:59 23:59 23:59 Weight 65 kg 65.317 kg - Physical Examination General: No Apparent Distress, Other (Intubated, but awake alert and appropriate) Neck: No JVD, Normal carotid pulses Cardiac: Reg Rate and Rhythm, Normal S1 and S2, No Murmur Incision: No signs of infection, Dry/intact dressing Sternum: Stable Chest tubes: Minimal drainage, Other (No air leak) Lungs: Normal Breath Sounds, No Wheeze, Rales, Rhonchi Neuro: Alert and responsive, No focal deficits noted Vascular: Normal capillary refill Extremities: No Clubbing, No Cyanosis, No Edema - Labs 03/19/18 03:00 03/19/18 03:00 Lab Results, Last 24 hours 03/18/18 03/18/18 03/18/18 12:32 12:32 12:32 WBC 15.7 H D Hgb 9.1 L Hct 28.6 L Plt Count 136 L D INR 1.6 APTT 36.3 H Sodium 139 Potassium 3.1 L Chloride 107 Carbon Dioxide 24 BUN 12 Creatinine 0.73 Glucose 225 H Calcium 9.4 Magnesium 2.6 03/18/18 03/18/18 03/19/18 19:00 19:00 03:00 WBC 12.1 H Hgb 8.7 L 8.3 L Hct 27.2 L 25.5 L Plt Count 182 INR APTT Sodium Potassium 3.8 Chloride Carbon Dioxide BUN Creatinine Glucose Calcium Magnesium 03/19/18 03/19/18 03:00 03:00 WBC Hgb Hct Plt Count INR 1.4 APTT 27.2 Sodium 142 Potassium 3.8 Chloride 111 H Carbon Dioxide 22 L BUN 13 Creatinine 0.83 Glucose 165 H Calcium 8.7 Magnesium 2.0 - Imaging Chest Xray: image reviewed (No pneumothorax. Bibasilar atelectasis.) - VTE Documentation of Mechanical Device: Graduated compression elastic hosiery Consult Discharge Plan - Plan Referrals: Funmilayo Plasencia [Primary Care Provider] - (Please follow up with your primary care provider. Call to schedule after your hospital discharge. )
[2018-03-19] MEDS: *HR* FentaNYL (PF) 100 MCG/2 ML VIAL IVP PRN (07:50)
[2018-03-19 08:18] LABS: ABG Base Excess -1 mEq/L (-2 to 3); ABG HCO3 24 mEq/L (21-27); ABG Oxygen Saturation 96 % (95-98); ABG PCO2 43 mmHg (35-45); ABG PH 7.37 pH Units (7.32-7.45); ABG PO2 83 mmHg (85-104); ABG TCO2 26 mEq/L (20-26)
[2018-03-19] MEDS: Furosemide 20 MG/2 ML VIAL IVP SCH ×2 (08:30→20:02)
[2018-03-19] MEDS: Chlorhexidine Rinse 15 ML MOUTHWASH MM SCH ×2 (08:30→20:01)
[2018-03-19] MEDS: Aspirin Enteric Coated 81 MG Tablet PO SCH (08:30)
[2018-03-19] MEDS: Pantoprazole 40 MG VIAL IVP SCH (08:30)
[2018-03-19] MEDS: 0.9 % Sodium Chloride w KCl 20 MEQ/1,000 ML MLS IVC SCH (08:31)
[2018-03-19] MEDS: *HR* OxyCODONE/APAP 5/325 TABLET PO PRN ×3 (09:05→20:01)
--- NOTE | 2018-03-19 14:08 | Anesthesia Evaluation Post Op ---
Date of Encounter: 03/19/18 Time of Encounter: 12:00 - Vital Signs Vital Signs: Selected Entries 03/19/18 12:00 Pulse Rate 116 Respiratory Rate 16 Blood Pressure 144/71 O2 Sat by Pulse Oximetry 98 Oxygen Flow Rate (LPM) 2 Oxygen Delivery Method Nasal Cannula - Lungs Lungs: Clear Ascult./Percussion - Airway Airway: Non-obstructed - Cardiovascular Regular Rate - Mental Status Mental Status: Alert & Oriented, Answers Appropriately - Pain Pain Scale: 3 Pain Scale used: Numeric (1 - 10) - Nausea Vomiting Nausea Vomiting: Not Present - Hydration Hydration: Tolerates oral liquids, Ramos catheter Notes: 03/19/18 14:06 POD #1 S/P CABG, no anesthesia complications. Will remain in ICU today
[2018-03-19] MEDS: niCARdipine 40 MG/200 ML MLS IVC SCH ×3 (14:39→20:16)
[2018-03-19] MEDS: Nitroglycerin 25 MG/250 ML INFUS..BTL IVC SCH ×2 (14:40→20:16)
[2018-03-19] MEDS: Norepinephrine 4 MG in D5% in Water 250 ML IVC SCH (14:40)
[2018-03-19] MEDS: Insulin LISPRO 300 UNITS/3 ML VIAL SQ SCH ×2 (16:32→20:02)
[2018-03-19] MEDS: *HR* Heparin 5,000 UNIT/ML VIAL SQ SCH (17:47)
[2018-03-20 03:30] LABS: Basophils % 0.2 %; Eosinophils # 0.1 K/mcL (0.0-0.6); Eosinophils % 0.4 %; Hematocrit 27.1 % (35.3-44.9); Hemoglobin 8.4 g/dL (11.5-15.4); Immature Granulocytes % 0.5 % (0-4); Lymphocytes # 1.4 K/mcL (0.6-4.6); Lymphocytes % 9.1 %; Mean Corpuscular Hemoglobin 26.4 pg (28.0-33.3); Mean Corpuscular Volume 85.2 fL (83.0-100.0); Mean Platelet Volume 10.4 fL (9.4-12.4); Monocytes # 1.3 K/mcL (0.0-1.3); Monocytes % 8.4 %; Neutrophils # 12.3 K/mcL (1.6-8.9); Nucleated Red Blood Cells 0.3 /100 WBC (0); Platelet Count 192 K/mcL (140-400); Red Blood Count 3.18 M/mcL (3.82-4.97); Red Cell Distribution Width 15.3 % (11.5-14.5); Segmented Neutrophils % 81.4 %
[2018-03-20 03:49] LABS: BUN/Creatinine Ratio 18 (6-26); Blood Urea Nitrogen 19 mg/dL (8-23); Calcium 9.1 mg/dL (8.6-10.3); Carbon Dioxide 23 mEq/L (23-29); Chloride 110 mEq/L (98-107); Glucose 154 mg/dL (70-105); Osmolality,Calculated 299 (280-300); Potassium 4.4 mEq/L (3.5-5.1); Sodium 142 mEq/L (136-145); eGFR For Non-African Americans 52 (> 60)
[2018-03-20] MEDS: *HR* OxyCODONE/APAP 5/325 TABLET PO PRN ×3 (05:10→17:08)
[2018-03-20] MEDS: *HR* Heparin 5,000 UNIT/ML VIAL SQ SCH ×2 (05:11→16:56)
[2018-03-20] MEDS: Metoclopramide 10 MG/2 ML VIAL IVP SCH ×4 (05:11→23:12)
[2018-03-20] MEDS: Insulin LISPRO 300 UNITS/3 ML VIAL SQ SCH ×4 (07:44→19:29)
[2018-03-20] MEDS: Furosemide 20 MG/2 ML VIAL IVP SCH ×2 (08:28→19:28)
[2018-03-20] MEDS: Aspirin Enteric Coated 81 MG Tablet PO SCH (08:29)
[2018-03-20] MEDS: Pantoprazole 40 MG VIAL IVP SCH (08:29)
[2018-03-20] MEDS: Chlorhexidine Rinse 15 ML MOUTHWASH MM SCH ×2 (08:29→19:28)
--- NOTE | 2018-03-20 09:39 | Cardiothoracic Progress Note ---
Date of Encounter: 03/20/18 Time of Encounter: 09:36 - Assessment and plan (1) NSTEMI (non-ST elevated myocardial infarction) Current Visit: Yes Status: Acute The patient is recovering well from her CABG3. The patient is extubated and breathing comfortably. The arterial line, Ramos catheter, [place]-Katie catheter, and chest tubes were removed. The Coreg dose will be increased today. The patient will be monitored in the ICU today. The assessment and plan as outlined above was discussed with the patient and/or family members who expressed understanding and agreement. All questions were answered. - Subjective Procedure(s) Performed: POD#2 S/P CABG3 Interval history: The patient remained hemodynamically stable overnight. She is extubated and breathing comfortably. She has some postoperative pain which is fairly well controlled with analgesics. Vital Signs, Last 4 Hours Temp Pulse Resp BP Pulse Ox 03/20/18 08:00 108 20 135/68 96 03/20/18 07:00 99.3 F 110 16 137/70 96 03/20/18 06:03 112 14 145/75 94 Oxgyen Flow Rate Oxygen Flow Rate (LPM) 2 Clinical Data, last 8 Hours Output, Chest Tube Drainage 130 Amount [Chest tube #2] Output, Chest Tube Drainage 15 Amount [Chest tube #2] Output, Chest Tube Drainage 35 Amount [Chest tube #1] Output, Chest Tube Drainage 10 Amount [Chest tube #1] Weight 03/18/18 03/19/18 03/20/18 23:59 23:59 23:59 Weight 65.317 kg - Physical Examination General: Conversant, No Apparent Distress Neck: No JVD, Normal carotid pulses Cardiac: Reg Rate and Rhythm, Normal S1 and S2, No Murmur Incision: No signs of infection, Dry/intact dressing Sternum: Stable Chest tubes: Minimal drainage, Other (No air leak) Pacing Wires: In place Lungs: Normal Breath Sounds, No Wheeze, Rales, Rhonchi Neuro: Alert and responsive, No focal deficits noted Vascular: Normal capillary refill Extremities: No Clubbing, No Cyanosis, No Edema - Labs 03/20/18 03:00 03/20/18 03:00 Lab Results, Last 24 hours 03/20/18 03/20/18 03:00 03:00 WBC 15.1 H Hgb 8.4 L Hct 27.1 L Plt Count 192 Sodium 142 Potassium 4.4 Chloride 110 H Carbon Dioxide 23 BUN 19 Creatinine 1.05 Glucose 154 H Calcium 9.1 - Imaging Chest Xray: image reviewed (No pneumothorax. Minimal bibasilar atelectasis.) - VTE Documentation of Mechanical Device: Graduated compression elastic hosiery Consult Discharge Plan - Plan Referrals: Funmilayo Plasencia [Primary Care Provider] - (Please follow up with your primary care provider. Call to schedule after your hospital discharge. )
[2018-03-20] MEDS: niCARdipine 40 MG/200 ML MLS IVC SCH ×3 (12:50→23:21)
[2018-03-20] MEDS: Norepinephrine 4 MG in D5% in Water 250 ML IVC SCH (12:50)
[2018-03-20] MEDS: Nitroglycerin 25 MG/250 ML INFUS..BTL IVC SCH ×2 (15:32→23:12)
[2018-03-21 04:23] LABS: Basophils # 0.1 K/mcL (0.0-0.2); Basophils % 0.4 %; Eosinophils # 0.3 K/mcL (0.0-0.6); Eosinophils % 2.3 %; Hematocrit 26.4 % (35.3-44.9); Hemoglobin 8.1 g/dL (11.5-15.4); Immature Granulocytes % 0.4 % (0-4); Lymphocytes # 1.4 K/mcL (0.6-4.6); Lymphocytes % 10.1 %; Mean Corpuscular HGB Conc 30.7 g/dL (31.6-35.5); Mean Corpuscular Hemoglobin 26.1 pg (28.0-33.3); Mean Corpuscular Volume 85.2 fL (83.0-100.0); Mean Platelet Volume 10.4 fL (9.4-12.4); Monocytes # 1.2 K/mcL (0.0-1.3); Monocytes % 8.4 %; Neutrophils # 10.8 K/mcL (1.6-8.9); Nucleated Red Blood Cells 0.3 /100 WBC (0); Platelet Count 210 K/mcL (140-400); Red Cell Distribution Width 15.8 % (11.5-14.5); Segmented Neutrophils % 78.4 %
[2018-03-21 04:45] LABS: BUN/Creatinine Ratio 27 (6-26); Blood Urea Nitrogen 24 mg/dL (8-23); Calcium 9.1 mg/dL (8.6-10.3); Carbon Dioxide 26 mEq/L (23-29); Chloride 108 mEq/L (98-107); Glucose 137 mg/dL (70-105); Osmolality,Calculated 296 (280-300); Potassium 4.2 mEq/L (3.5-5.1); Sodium 140 mEq/L (136-145); eGFR For Non-African Americans > 60 (> 60)
[2018-03-21] MEDS: Metoclopramide 10 MG/2 ML VIAL IVP SCH (06:00)
[2018-03-21] MEDS: *HR* Heparin 5,000 UNIT/ML VIAL SQ SCH ×2 (06:00→17:21)
[2018-03-21] MEDS: Insulin LISPRO 300 UNITS/3 ML VIAL SQ SCH ×4 (07:46→21:09)
[2018-03-21] MEDS: Chlorhexidine Rinse 15 ML MOUTHWASH MM SCH ×2 (09:21→20:35)
[2018-03-21] MEDS: Pantoprazole 40 MG VIAL IVP SCH (09:21)
[2018-03-21] MEDS: Furosemide 20 MG/2 ML VIAL IVP SCH (09:21)
[2018-03-21] MEDS: Aspirin Enteric Coated 81 MG Tablet PO SCH (09:22)
--- NOTE | 2018-03-21 09:28 | Cardiothoracic Progress Note ---
Date of Encounter: 03/21/18 Time of Encounter: 09:26 - Assessment and plan (1) Congestive heart failure Current Visit: Yes Status: Acute The assessment and plan as outlined above was discussed with the patient and/or family members who expressed understanding and agreement. All questions were answered. The pacing wires were removed. We will write transfer orders to transfer her when a bed becomes available. She does have the usual, expected acute po stoperative blood loss anemia. Qualifiers: Heart failure type: combined systolic and diastolic Heart failure chronicity: acute on chronic Qualified Code(s): I50.43 - Acute on chronic combined systolic (congestive) and diastolic (congestive) heart failure - Subjective Interval history: The patient has no significant complaints. Vital Signs, Last 4 Hours Temp Pulse Resp BP Pulse Ox 03/21/18 08:00 98 17 130/76 96 03/21/18 07:50 98.0 F 03/21/18 07:00 99 17 137/69 95 03/21/18 06:00 101 16 127/76 96 Oxgyen Flow Rate Oxygen Flow Rate (LPM) 2 Clinical Data, last 8 Hours Output, Urine Amount 150 Output, Urine Amount 250 Lungs are clear to percussion and auscultation. Heart is in a regular rate and rhythm. All incisions are healing well without signs of infection and the sternum is stable. - Labs 03/21/18 04:10 03/21/18 04:10 Lab Results, Last 24 hours 03/21/18 03/21/18 04:10 04:10 WBC 13.8 H Hgb 8.1 L Hct 26.4 L Plt Count 210 Sodium 140 Potassium 4.2 Chloride 108 H Carbon Dioxide 26 BUN 24 H Creatinine 0.88 Glucose 137 H Calcium 9.1 - VTE Documentation of Mechanical Device: Graduated compression elastic hosiery Consult Discharge Plan - Plan Referrals: Funmilayo Plasencia [Primary Care Provider] - (Please follow up with your primary care provider. Call to schedule after your hospital discharge. )
[2018-03-21] MEDS ORDERED: *HR* Dextrose 50 % in Water (Syg) 50 ML SYRINGE IVP PRN (09:43)
[2018-03-21] MEDS ORDERED: Naloxone 0.4 MG/ML INJ IVP PRN (09:43)
[2018-03-21] MEDS ORDERED: clonazePAM 1 MG TABLET PO PRN (09:43)
[2018-03-21] MEDS ORDERED: Insulin Regular, Human 100 UNIT/ML IV PRN (09:43)
[2018-03-21] MEDS: Furosemide 40 MG TABLET PO SCH (11:44)
[2018-03-21] MEDS: Insulin Human Regular 100 UNIT in 0.9 % Sodium Chloride 100 ML IVC SCH (11:44)
[2018-03-21] MEDS: Acetaminophen 325 MG TABLET PO PRN (15:21)
[2018-03-21] MEDS ORDERED: Furosemide 20 MG/2 ML VIAL IVP SCH (21:00)
[2018-03-22 01:12] LABS: Basophils % 0.4 %; Eosinophils # 0.4 K/mcL (0.0-0.6); Eosinophils % 3.5 %; Hematocrit 27.1 % (35.3-44.9); Hemoglobin 8.3 g/dL (11.5-15.4); Immature Granulocytes % 0.4 % (0-4); Lymphocytes # 1.9 K/mcL (0.6-4.6); Lymphocytes % 17.2 %; Mean Corpuscular HGB Conc 30.6 g/dL (31.6-35.5); Mean Corpuscular Hemoglobin 26.3 pg (28.0-33.3); Mean Corpuscular Volume 85.8 fL (83.0-100.0); Monocytes # 1.2 K/mcL (0.0-1.3); Monocytes % 11.2 %; Neutrophils # 7.4 K/mcL (1.6-8.9); Nucleated Red Blood Cells 0.5 /100 WBC (0); Platelet Count 219 K/mcL (140-400); Red Blood Count 3.16 M/mcL (3.82-4.97); Red Cell Distribution Width 15.5 % (11.5-14.5); Segmented Neutrophils % 67.3 %
[2018-03-22 01:55] LABS: BUN/Creatinine Ratio 30 (6-26); Blood Urea Nitrogen 20 mg/dL (8-23); Calcium 8.6 mg/dL (8.6-10.3); Carbon Dioxide 27 mEq/L (23-29); Chloride 106 mEq/L (98-107); Glucose 89 mg/dL (70-105); Osmolality,Calculated 290 (280-300); Potassium 3.8 mEq/L (3.5-5.1); Sodium 139 mEq/L (136-145); eGFR For Non-African Americans > 60 (> 60)
[2018-03-22] MEDS: *HR* Heparin 5,000 UNIT/ML VIAL SQ SCH ×2 (05:11→17:07)
--- NOTE | 2018-03-22 07:30 | Cardiothoracic Progress Note ---
Date of Encounter: 03/22/18 Time of Encounter: 07:29 - Assessment and plan (1) Congestive heart failure Current Visit: Yes Status: Acute We will plan to discharge the patient to home in the next day or 2. Qualifiers: Heart failure type: combined systolic and diastolic Heart failure chronicity: acute on chronic Qualified Code(s): I50.43 - Acute on chronic combined systolic (congestive) and diastolic (congestive) heart failure - Subjective Interval history: The patient is tolerating her diet and starting to walk. Vital Signs, Last 4 Hours Temp Pulse Resp BP Pulse Ox 03/22/18 04:19 18 93 03/22/18 03:36 98.2 F 92 18 111/65 92 Oxgyen Flow Rate Oxygen Flow Rate (LPM) 2 Clinical Data, last 8 Hours Output, Urine Amount 400 Lungs are clear to percussion and auscultation. Heart is in a normal sinus rhythm. All incisions are healing well without signs of infection and the sternum is stable. - Labs 03/22/18 00:38 03/22/18 00:38 Lab Results, Last 24 hours 03/22/18 03/22/18 00:38 00:38 WBC 11.0 Hgb 8.3 L Hct 27.1 L Plt Count 219 Sodium 139 Potassium 3.8 Chloride 106 Carbon Dioxide 27 BUN 20 Creatinine 0.67 Glucose 89 Calcium 8.6 - VTE Documentation of Mechanical Device: Graduated compression elastic hosiery Consult Discharge Plan - Plan Referrals: Funmilayo Plasencia [Primary Care Provider] - (Please follow up with your primary care provider. Call to schedule after your hospital discharge. )
[2018-03-22] MEDS: Insulin LISPRO 300 UNITS/3 ML VIAL SQ SCH ×4 (07:58→20:49)
[2018-03-22] MEDS: Chlorhexidine Rinse 15 ML MOUTHWASH MM SCH ×2 (08:04→20:49)
[2018-03-22] MEDS: Aspirin Enteric Coated 81 MG Tablet PO SCH (08:05)
[2018-03-22] MEDS ORDERED: Pantoprazole 40 MG VIAL IVP SCH (09:00)
[2018-03-22] MEDS: Acetaminophen 325 MG TABLET PO PRN (11:42)
[2018-03-22] MEDS ORDERED: *HR* LORazepam 2 MG/ML VIAL IVP PRN (12:42)
[2018-03-22] MEDS: *HR* OxyCODONE/APAP 5/325 TABLET PO PRN (20:48)
[2018-03-23] MEDS: *HR* OxyCODONE/APAP 5/325 TABLET PO PRN ×3 (00:38→19:23)
[2018-03-23] MEDS: *HR* Heparin 5,000 UNIT/ML VIAL SQ SCH ×2 (05:20→17:21)
[2018-03-23] MEDS: Aspirin Enteric Coated 81 MG Tablet PO SCH (07:52)
[2018-03-23] MEDS: Insulin LISPRO 300 UNITS/3 ML VIAL SQ SCH ×3 (07:53→17:19)
[2018-03-23] MEDS: Chlorhexidine Rinse 15 ML MOUTHWASH MM SCH ×2 (07:53→19:24)
--- NOTE | 2018-03-23 08:54 | Cardiothoracic Progress Note ---
Date of Encounter: 03/23/18 Time of Encounter: 08:51 - Assessment and plan (1) Congestive heart failure Current Visit: Yes Status: Acute We will plan to discharge the patient in 1-2 days. She has oxygen at home which she uses at night. I gave her a prescription for a walker. Qualifiers: Heart failure type: combined systolic and diastolic Heart failure chronicity: acute on chronic Qualified Code(s): I50.43 - Acute on chronic combined systolic (congestive) and diastolic (congestive) heart failure - Subjective Interval history: The patient is tolerating her diet and ambulating and has no complaints. Vital Signs, Last 4 Hours Temp Pulse Resp BP Pulse Ox 03/23/18 07:51 14 100 03/23/18 07:28 98.4 F 101 18 151/95 99 03/23/18 05:15 94 Oxgyen Flow Rate Oxygen Flow Rate (LPM) 2 Lungs are clear to percussion and auscultation. Heart is in a normal sinus rhythm. All incisions are healing well without signs of infection and the sternum is stable. Chest x-ray is improved and shows mild pulmonary vascular congestion. - Labs 03/22/18 00:38 03/22/18 00:38 - VTE Documentation of Mechanical Device: Graduated compression elastic hosiery Consult Discharge Plan - Plan Referrals: Dari Nix MD [Partnered Physician] - 04/27/18 1:30 pm Mandeep Palm MD [Non-Partnered Physician] - 03/29/18 1:30 pm Funmilayo Plasencia [Primary Care Provider] - 04/01/18 10:00 am ()
[2018-03-23] MEDS: Acetaminophen 325 MG TABLET PO PRN (09:57)
[2018-03-23] MEDS: Furosemide 40 MG TABLET PO SCH (09:59)
[2018-03-24] MEDS: *HR* OxyCODONE/APAP 5/325 TABLET PO PRN ×4 (00:29→23:08)
[2018-03-24] MEDS: Insulin LISPRO 300 UNITS/3 ML VIAL SQ SCH ×5 (00:29→20:56)
[2018-03-24 01:21] LABS: Basophils # 0.1 K/mcL (0.0-0.2); Basophils % 0.6 %; Eosinophils # 0.4 K/mcL (0.0-0.6); Eosinophils % 4.9 %; Hematocrit 26.9 % (35.3-44.9); Hemoglobin 8.5 g/dL (11.5-15.4); Immature Granulocytes % 0.3 % (0-4); Lymphocytes # 2.4 K/mcL (0.6-4.6); Lymphocytes % 31.3 %; Mean Corpuscular HGB Conc 31.6 g/dL (31.6-35.5); Mean Corpuscular Hemoglobin 26.4 pg (28.0-33.3); Mean Corpuscular Volume 83.5 fL (83.0-100.0); Mean Platelet Volume 10.6 fL (9.4-12.4); Monocytes % 13.1 %; Neutrophils # 3.9 K/mcL (1.6-8.9); Nucleated Red Blood Cells 0.4 /100 WBC (0); Platelet Count 276 K/mcL (140-400); Red Blood Count 3.22 M/mcL (3.82-4.97); Red Cell Distribution Width 15.1 % (11.5-14.5); Segmented Neutrophils % 49.8 %
[2018-03-24 01:32] LABS: BUN/Creatinine Ratio 16 (6-26); Blood Urea Nitrogen 11 mg/dL (8-23); Calcium 8.5 mg/dL (8.6-10.3); Carbon Dioxide 26 mEq/L (23-29); Chloride 105 mEq/L (98-107); Glucose 132 mg/dL (70-105); Osmolality,Calculated 287 (280-300); Potassium 3.7 mEq/L (3.5-5.1); Sodium 138 mEq/L (136-145); eGFR For Non-African Americans > 60 (> 60)
[2018-03-24] MEDS: *HR* Heparin 5,000 UNIT/ML VIAL SQ SCH ×2 (06:03→17:44)
--- NOTE | 2018-03-24 07:19 | Cardiothoracic Progress Note ---
Date of Encounter: 03/24/18 Time of Encounter: 07:18 - Assessment and plan (1) Congestive heart failure Current Visit: Yes Status: Acute We will plan to discharge the patient tomorrow. Qualifiers: Heart failure type: combined systolic and diastolic Heart failure chronicity: acute on chronic Qualified Code(s): I50.43 - Acute on chronic combined systolic (congestive) and diastolic (congestive) heart failure - Subjective Interval history: The patient has no complaints, but is anxious and wants to wait until tomorrow to be discharged. Vital Signs, Last 4 Hours Temp Pulse Resp BP Pulse Ox 03/24/18 04:51 100 03/24/18 04:01 98.3 F 104 17 128/96 97 03/24/18 03:54 16 98 Oxgyen Flow Rate Oxygen Flow Rate (LPM) 0 Clinical Data, last 8 Hours Output, Urine Amount 420 Output, Urine Amount 0 Weight 03/22/18 03/23/18 03/24/18 23:59 23:59 23:59 Weight 66.1 kg Lungs are clear to percussion and auscultation. Heart is in a regular rate and rhythm. All incisions are healing well without signs of infection and the sternum is stable. - Labs 03/24/18 01:05 03/24/18 01:05 Lab Results, Last 24 hours 03/24/18 03/24/18 01:05 01:05 WBC 7.7 Hgb 8.5 L Hct 26.9 L Plt Count 276 Sodium 138 Potassium 3.7 Chloride 105 Carbon Dioxide 26 BUN 11 Creatinine 0.67 Glucose 132 H Calcium 8.5 L - VTE Documentation of Mechanical Device: Graduated compression elastic hosiery Consult Discharge Plan - Plan Referrals: Dari Nix MD [Partnered Physician] - 04/27/18 1:30 pm Mandeep Palm MD [Non-Partnered Physician] - 03/29/18 1:30 pm Funmilayo Plasencia [Primary Care Provider] - 04/01/18 10:00 am ()
[2018-03-24] MEDS: Furosemide 40 MG TABLET PO SCH (07:46)
[2018-03-24] MEDS: Aspirin Enteric Coated 81 MG Tablet PO SCH (07:46)
[2018-03-24] MEDS: Chlorhexidine Rinse 15 ML MOUTHWASH MM SCH ×2 (07:46→20:32)
[2018-03-25 05:34] LABS: Basophils % 0.6 %; Eosinophils # 0.4 K/mcL (0.0-0.6); Eosinophils % 6.1 %; Hematocrit 29.2 % (35.3-44.9); Immature Granulocytes % 0.3 % (0-4); Lymphocytes # 2.1 K/mcL (0.6-4.6); Mean Corpuscular HGB Conc 30.8 g/dL (31.6-35.5); Mean Corpuscular Hemoglobin 25.5 pg (28.0-33.3); Mean Corpuscular Volume 82.7 fL (83.0-100.0); Mean Platelet Volume 10.5 fL (9.4-12.4); Monocytes # 0.8 K/mcL (0.0-1.3); Monocytes % 12.4 %; Neutrophils # 3.3 K/mcL (1.6-8.9); Platelet Count 342 K/mcL (140-400); Red Blood Count 3.53 M/mcL (3.82-4.97); Red Cell Distribution Width 15.3 % (11.5-14.5); Segmented Neutrophils % 49.6 %
[2018-03-25 05:55] LABS: BUN/Creatinine Ratio 12 (6-26); Blood Urea Nitrogen 7 mg/dL (8-23); Calcium 8.7 mg/dL (8.6-10.3); Carbon Dioxide 28 mEq/L (23-29); Chloride 102 mEq/L (98-107); Glucose 109 mg/dL (70-105); Osmolality,Calculated 285 (280-300); Potassium 3.4 mEq/L (3.5-5.1); Sodium 138 mEq/L (136-145); eGFR For Non-African Americans > 60 (> 60)
[2018-03-25] MEDS: *HR* Heparin 5,000 UNIT/ML VIAL SQ SCH (06:08)
[2018-03-25 07:27] VITALS: BP 154/99
[2018-03-25] MEDS: Aspirin Enteric Coated 81 MG Tablet PO SCH (07:31)
[2018-03-25] MEDS: Furosemide 40 MG TABLET PO SCH (07:31)
[2018-03-25] MEDS: Insulin LISPRO 300 UNITS/3 ML VIAL SQ SCH (07:32)
[2018-03-25] MEDS: Chlorhexidine Rinse 15 ML MOUTHWASH MM SCH (07:32)
[2018-03-25] MEDS: *HR* OxyCODONE/APAP 5/325 TABLET PO PRN (07:37)
--- NOTE | 2018-03-25 09:16 | Discharge Summary ---
Date of Encounter: 03/25/18 Time of Encounter: 09:11 - Discharge Diagnosis (1) Congestive heart failure Priority: Primary Status: Acute Qualifiers: Heart failure type: combined systolic and diastolic Heart failure chronicity: acute on chronic Qualified Code(s): I50.43 - Acute on chronic combined systolic (congestive) and diastolic (congestive) heart failure - Hospital Course Hospital course: Ms. Diallo is a 67 year old female The patient is a 67-year-old female with a history of hypertension, hypercholesterolemia, cerebrovascular disease and COPD. She presented with chest heaviness and dyspnea on exertion. It should be noted that she was on home oxygen prior to admission and used 2 L at night. She did have an increased troponin and an increased BNP. Echocardiogram revealed an ejection fraction of 30-35%. Cardiac catheterization revealed severe coronary artery disease and she was referred for surgery. On 03/18/2018, Dr. Nix took the patient to the operating room for coronary artery bypass grafting 3, utilizing the left internal mammary artery. On March 20, her chest tubes were removed. On March 21, her pacing wires were removed. The patient otherwise did well and was discharged on March 25. At that time, she was afebrile. Lungs were clear to percussion and auscultation. Heart was in a normal sinus rhythm. All incisions were healing well without signs of infection and the sternum is stable. Discharge medications are on the med rec and include narcotics for pain. I did check the [place] automated Rx reporting system. She was postoperative and was given a one-week supply. Appropriate precautions were given. She was to return to her previous and regular diet. She was to avoid heavy lifting for a total of 3 months after surgery, but to walk as much as possible. She was to avoid driving for 1 month. She was to follow up and see Dr. Nix in the office in 4 weeks as directed. She was to follow up with her primary care doctor and potato inspector as directed. She was to call sooner for any difficulties. - Time Spent with Patient Total time spent providing and/or coordinating discharge services: - Discharge Medications Prescriptions: OxyCODONE/APAP 5/325 [Percocet 5/325 MG] 1 each PO Q4HR PRN 7 Days #20 tablet PRN Reason: Severe Pain Carvedilol [Coreg] 6.25 mg PO BIDWM #60 tablet Home Medications: Atorvastatin Calcium [Lipitor] 80 mg PO HS 12/16/17 [History] Cholecalciferol (D-3) [Vitamin D] 2,000 unit PO DAILY 12/16/17 [History] Clopidogrel [Plavix] 75 mg PO DAILY tablet 12/16/17 [Rx] Duloxetine HCl [Cymbalta] 60 mg PO DAILY 12/16/17 [History] Lisinopril [Zestril] 5 mg PO DAILY 12/16/17 [History] Tizanidine HCl [Zanaflex] 2 mg PO HS 12/16/17 [History] clonazePAM [Klonopin] 1 mg PO HS PRN 12/16/17 [History] Aspirin 325 mg PO DAILY 03/11/18 [History] Carvedilol [Coreg] 6.25 mg PO BIDWM #60 tablet 03/25/18 [Rx] OxyCODONE/APAP 5/325 [Percocet 5/325 MG] 1 each PO Q4HR PRN 7 Days #20 tablet 03/25/18 [Rx] Allergies/Adverse Reactions: Allergy/AdvReac Type Severity Reaction Status Date / Time morphine AdvReac Unknown See Verified 03/11/18 12:39 Comments gabapentin AdvReac See Verified 03/11/18 12:39 Comments Date of admission: 03/11/18 15:31 Primary care physician: Funmilayo Plasencia Consults: 03/16/18 18:43 Consult to Nutrition [CONS] Routine Comment: Consulting Provider: NUTRITION Reason for Dietary Consult: PO Supplementation Other:: takes boost at home 03/18/18 12:17 Consult to Cardiac Rehabilitation-Phase1 [CONS] Routine Comment: Reason for Consult: Post open heart Call Completed: Yes 03/21/18 09:43 Consult for Pharmacy Education [CONS] Routine Reason for Consult: Post-Op Heart Call Completed: Yes Consult to Occupational Therapy [CONS] Routine Comment: Evaluate, develop and implement POC Reason for Consult: Post-Op Heart Does patient have active BEDREST order?: No Is patient medically & hemodynamically stable?: Yes Consult to Physical Therapy [CONS] Routine Comment: Evaluate, develop and implement POC Reason for Consult: Post open heart Does patient have active BEDREST order?: No Is patient medically & hemodynamically stable?: Yes 03/11/18 05:09 Consult to Cardiology [CONS] Routine Comment: Consulting Provider: Cardiology [place] Reason for Consult: NSTEMI, suspect new onset CHF Call Completed: No 03/11/18 08:49 Consult to Surgery [CONS] Routine Consulting Provider: Surgery [facility] Reason for Consult: possible Rt breast implant rupture Call Completed: Yes 03/14/18 17:25 Consult to Pastoral Services [CONS] Routine Comment: requests prayer r/t CABG 03/14/18 17:30 Consult to Fish And Game Warden [CONS] Routine Reason for SW Consult: wishes to discuss living will/POA, patient had once but lost document Procedure(s) Performed: 03/18/2018. Coronary artery bypass grafting 3, utilizing the left internal mammary artery. Discharging clinician: Denys Barba Anticipated date of discharge: 03/25/18 Physical Examination Vital Signs, Last 4 Hours Temp Pulse Resp BP Pulse Ox 03/25/18 07:40 102 03/25/18 07:25 16 92 03/25/18 07:24 98.4 F 107 18 154/99 94 - Patient Status Disposition: Home, Self-Care Functional capacity at discharge: independent ambulation Overall status at discharge: patient is progressing back to baseline - Discharge Instructions Follow Up With: Dari Nix MD [Partnered Physician] - 04/27/18 1:30 pm Mandeep Palm MD [Non-Partnered Physician] - 03/29/18 1:30 pm Funmilayo Plasencia [Primary Care Provider] - 04/01/18 10:00 am () Open [facility] Aspirin Cont/Prescribed at DC: Yes Beta Humble Cont/Prescribed at DC: Yes Statin Cont/Prescribed at DC: Yes ANSLEY/ARB Cont/Prescribed at DC: Yes - VTE Documentation of Mechanical Device: Graduated compression elastic hosiery
== END 2018-03-25 11:31 | disposition home or self-care (01) | DRG 233 ==
LOC: 2ANU → SUATTDRO 01:38 → ICNU 03-18 07:54 → 2NNU 03-21 17:19
PROVIDERS: ADMIT Family Medicine; ATTEND Hospitalist

== ENCOUNTER 2018-04-01 14:00 | Inpatient (IN) ==
--- NOTE | 2018-04-01 16:04 | Internal Med History&Physical ---
<Darcy Argueta N - Last Filed: 04/01/18 19:11> Date of Encounter: 04/01/18 Time of Encounter: 16:04 Internal Medicine - H&P: HPI Chief complaint: Sudden onset shortness of breath Admitted From: Hospital to Hospital Transfer History of present illness: Ms. Diallo is a 67 year old female with a history of COPD, coronary artery dise ase, hypertension, hyperlipidemia, breast cancer status post right mastectomy and left lymphectomy, multiple CVAs, recent IN, and recent coronary artery bypass graft. She was discharged home from [facility] on 03/25/2018. Patient reports that she had sudden onset shortness of breath that occurred this morning. She stated that she did have some dyspnea when she woke up, but suddenly felt acutely ill with chills, subjective fever, profuse diaphoresis, substernal chest pain, increased dyspnea, and increased work of breathing. She resides at home with her son, who called EMS per her request. She denies any associated cough, chest congestion, sputum production, or wheezing. She denies any history of sim ilar events. Patient was transported to [facility], where she was initially evaluated. Per review of their documentation, she was tachycardic and to upon arrival. Laboratory studies were significant for the following abnormalities: WBC 10.4, hemoglobin 10.1, hematocrit 34.1, platelets 905, potassium 5.3, glucose 180, lactic acid 1.6, PT/INR 15.4/1.33, and pro-BNP 9043 (normal <125). She was also noted to have an elevated troponin. Chest x-ray demonstrated increased interstitial markings. CTA of the chest was significant for right lower lobe pulmonary embolism, small bilateral pleural effusions, and a small nodule on the right lobe of the thyroid gland. Due to presence of acute PE and recent d ischarge from [facility] after cardiothoracic surgery, patient was transferred to this facility for admission and management. Patient was seen and evaluated at the bedside soon after arrival. She did not a ppear to be in acute distress. She endorses the above description of her symptoms, and states that she never had many health problems before June 2017. Since that time, she has had multiple CVAs and her recent IN. She denies any history of clots. She reports that upon arrival to the outside facility, she was administered oxycodone for her chest pain. She reports several episodes of emesis after receiving that medication, but states that it did improve her pain greatly. She also reports improvement in respiratory symptoms after receiving nebulized bronchodilators. At this time, she does not have any chest pain or increased work of breathing, and appears to be comfortable with supplemental ox ygen via nasal cannula. She denies any new complaints or concerns at this time. Past Med Surg Social Fam HX - Past Medical History Medical history: arthritis, cancer (Bilateral breast cancer), COPD, coronary artery disease, CVA, hyperlipidemia, hypertension Additional medical history: Breast CA (2007,2013) Right side mastectomy (breast reconstruction) , left side lymphectomy Psychiatric history: anxiety, depression - Past Surgical History Surgical History: appendectomy, breast surgery (Right modified radical mastectomy), hysterectomy, orthopedic, other (Left ankle ORIF, left knee Nix's cyst excision), other (Left carotid atherectomy) Additional surgical history: leg sx; cyst removal from left posterior leg - Social History Smoking Status: Former smoker Smokeless Tobacco Status: No Alcohol use: none Drug use: none - Family History Father Living Status: Hx Family Cancer: Yes (prostate) Mother Living Status: Internal Medicine - H&P: Meds Atorvastatin Calcium [Lipitor] 80 mg PO HS 12/16/17 [History] Cholecalciferol (D-3) [Vitamin D] 2,000 unit PO DAILY 12/16/17 [History] Clopidogrel [Plavix] 75 mg PO DAILY tablet 12/16/17 [Rx] Duloxetine HCl [Cymbalta] 60 mg PO DAILY 12/16/17 [History] Lisinopril [Zestril] 5 mg PO DAILY 12/16/17 [History] Tizanidine HCl [Zanaflex] 2 mg PO HS 12/16/17 [History] clonazePAM [Klonopin] 1 mg PO HS PRN 12/16/17 [History] Furosemide [Lasix] 20 mg PO DAILY 04/01/18 [History] OxyCODONE/APAP 5/325 [Percocet 5/325 MG] 1 tab PO Q4H PRN 04/01/18 [History] Aspirin Enteric Coated [Aspirin EC] 81 mg PO DAILY 04/02/18 [History] Carvedilol 12.5 mg PO BID 04/02/18 [History] Potassium Chloride [Klor-Con 10] 10 meq PO BID 04/02/18 [History] Allergy/AdvReac Type Severity Reaction Status Date / Time morphine AdvReac Unknown See Verified 04/02/18 13:00 Comments gabapentin AdvReac See Verified 04/02/18 13:00 Comments All Systems PM: A 10-system review of systems was performed and is negative for pertinent findings except as documented above in the HPI. - Constitutional Constitutional: chills, excessive sweating, fever(s) - Cardiovascular Cardiovascular ROS IM: chest pain, diaphoresis, dyspnea, no edema - Respiratory Respiratory: no cough, no wheezing, no chest congestion, no excessive phlegm production - Gastrointestinal Gastrointestinal: no abdominal pain, no bloating, no change in bowel habits, no diarrhea - Constitutional Vitals: Temp Pulse Resp BP Pulse Ox 98.1 F 112 16 161/62 95 04/01/18 15:45 04/01/18 15:45 04/01/18 15:45 04/01/18 15:45 04/01/18 15:45 Exam: GENERAL: Pleasant adult female resting in bed comfortably. She appears to be stated age, and does not appear to be in acute distress. HEENT: Atraumatic and normocephalic. NECK: No JVD or thyromegaly. CARDIOVASCULAR: Regular rate and rhythm. S1 and S2 present. No murmurs, gallops, or rubs appreciated. RESPIRATORY: Diffusely decreased breath sounds bilaterally, with no wheezes present. Patient does not appear to have increased work of breathing, and is not using accessory muscles. GASTROINTESTINAL: Active bowel sounds present 4 quadrants. Abdomen is soft, nontender, and nondistended. EXTREMITIES: No clubbing, cyanosis, or pitting edema present. Bilateral lower extremities have trace edema bilaterally. SKIN: Warm, dry, and intact. Scattered ecchymoses on all extremities, with extensive bruising of the right lower extremity secondary to recent cardiovascular procedures. NEUROLOGIC: Patient is alert and oriented. She answers questions appropriately and is cooperative with exam. No apparent focal deficits. PSYCHIATRIC: Appropriate mood and affect. - Assessment and plan (1) Pulmonary embolism Current Visit: Yes Status: Acute Assessment and plan: Patient was found to have right lower lobe pulmonary embolism on chest CTA performed at outside facility. Plan: - Heparin gtt - Continuous telemetry monitoring and pulse oximetry - Continue supplemental oxygen as needed to maintain O2 >92%; wean as tolerated - Bilateral lower extremity doppler ultrasound pending - Repeat echocardiogram pending Qualifiers: Pulmonary embolism type: unspecified Chronicity: acute Qualified Code(s): I26.99 - Other pulmonary embolism without acute cor pulmonale (2) Congestive heart failure Current Visit: Yes Status: Acute Assessment and plan: Suspect some degree of CHF exacerbation due to elevated BNP obtained in outside ED and CXR findings. Patient had an echocardiogram performed on 12/16/2017, which demonstrated LVEF of 45-50%. At that time, mild left ventricular diastolic dysfunction was noted, along with mild right ventricular hypokinesis, mildly dilated right ventricle, and mildly dilated left atrium. Limited echocardiogram performed on 03/11/2018 showed 30-35%, with severe global and segmental left ventricular systolic dysfunction, mild right ventricular hypokinesis, and mildly dilated left atrium. - Repeat BNP pending - Repeat CXR tomorrow morning - Lasix 20mg IV BID - Monitor strict I/Os and daily weights - Fluid restriction to 1.5L daily - Continue home doses of aspirin, atorvastatin, lisinopril, and carvedilol Qualifiers: Heart failure type: combined systolic and diastolic Heart failure chronicity: acute on chronic Qualified Code(s): I50.43 - Acute on chronic combined systolic (congestive) and diastolic (congestive) heart failure (3) COPD (chronic obstructive pulmonary disease) Current Visit: Yes Status: Acute Assessment and plan: Low suspicion for acute COPD exacerbation due to sudden onset and patient's description of her symptoms. Patient states that she has been told in the past that she has COPD; however, she states that she is not convinced that she has it as she has not had respiratory symptoms prior to this acute event. She does use both inhalers and breathing treatments at home. - Duonebs Q4H PRN - Continue albuterol inhaler PRN Qualifiers: COPD type: unspecified COPD Qualified Code(s): J44.9 - Chronic obstructive pulmonary disease, unspecified (4) Hyperkalemia Current Visit: Yes Status: Acute Assessment and plan: Elevated serum potassium of 5.3 noted in outside records. Suspect secondary to potassium supplementation vs. rhabdomyolysis. - Repeat potassium pending - Hold oral potassium - Serum creatine kinase pending to rule out rhabdomyolysis (5) Elevated troponin Current Visit: Yes Status: Acute Assessment and plan: Secondary to demand ischemia vs. acute respiratory distress vs. CHF exacerbation. Patient denies any cardiac symptoms at this time. - Trend troponins x 3 - Repeat EKG tomorrow morning (6) Thrombocytosis Current Visit: Yes Status: Acute Assessment and plan: Possibly reactive in nature, though etiology is unclear. - Repeat laboratory studies and LFTs pending - Consider peripheral smear and further workup if indicated by repeat studies (7) Hyperglycemia Current Visit: Yes Status: Acute Assessment and plan: Blood glucose of 180 noted on laboratory studies from outside ED. Patient states that she does not have diabetes and has not eaten today. - Repeat serum glucose pending - Evaluate hemoglobin A1c with morning laboratory studies (8) Hx of CABG Current Visit: Yes Status: Acute Assessment and plan: Patient underwent CABG on 03/11/2018, with hospital discharge on 03/25/2018. - Continue oxycodone-acetaminophen 5-325mg Q4H PRN pain (9) Anxiety and depression Current Visit: Yes Status: Acute Assessment and plan: - Continue home medications of duloxetine 60mg and clonopin 1mg QHS PRN (10) Thyroid nodule Current Visit: Yes Status: Acute Assessment and plan: Patient denies history of thyroid disease or known thyroid nodule. - Recommend outpatient workup, including radioactive iodine uptake studies, following hospital discharge (11) Acute respiratory failure Current Visit: Yes Status: Acute Assessment and plan: Secondary to acute pulmonary embolism vs. CHF exacerbation vs. COPD exacerbation. Please see individual assessments for management plan. Qualifiers: Respiratory failure complication: hypoxia Qualified Code(s): J96.01 - Acute respiratory failure with hypoxia - Time Spent With Patient Total time spent is greater than 50% in coordination of care (as documented) at patient's floor/unit and/or counseling patient: <Parvin Woodward - Last Filed: 04/02/18 16:20> Date of Encounter: 04/02/18 Internal Medicine - H&P: HPI History of present illness: Ms. Diallo is a 67 year old female All Systems PM: A 10-system review of systems was performed and is negative for pertinent findings except as documented above in the HPI. - Constitutional Vitals: Temp Pulse Resp BP Pulse Ox 98.2 F 85 16 112/57 88 04/02/18 10:57 04/02/18 10:57 04/02/18 10:57 04/02/18 10:57 04/02/18 10:57 Internal Med - H&P Results - Labs CBC & Chem 7: 04/02/18 00:45 04/02/18 00:45 Labs: Short CBC 04/01/18 04/02/18 Range/Units 19:01 00:45 WBC 9.0 9.6 (4.3-11.1) K/mcL Hgb 9.1 L 8.8 L (11.5-15.4) g/dL Hct 30.0 L 29.7 L (35.3-44.9) % Plt Count 784 H 690 H (140-400) K/mcL Neutrophils # 6.6 6.4 (1.6-8.9) K/mcL BMP 04/01/18 04/02/18 19:01 00:45 Sodium 136 137 Potassium 4.5 4.1 Chloride 101 102 Carbon Dioxide 26 25 BUN 12 12 Creatinine 0.67 0.63 Glucose 140 H 120 H Calcium 9.4 9.0 Cardiac Enzymes 04/01/18 04/02/18 04/02/18 Range/Units 19:01 00:45 06:51 Troponin I 0.20 H* 0.18 H* 0.19 H* (< 0.04) ng/mL Liver Function 04/01/18 Range/Units 19:01 Total Bilirubin 0.6 (0.3-1.0) mg/dL AST 23 (13-39) Units/L ALT 24 (7-52) Units/L Alkaline Phosphatase 125 H (34-104) Units/L Albumin 3.9 (3.5-5.7) g/dL - Impressions ITS Impressions Echocardiogram 04/02/18 00:00 Impressions: LVEF 40%. Normal LV chamber size and wall thickness. Global LV systolic dysfunction with regional variations. Atypical septal motion consistent with post-operative status. Moderate left ventricular diastolic dysfunction. Normal right ventricular structure with mildly reduced function. Mild-moderate tricuspid regurgitation. Borderline mild pulmonary hypertension. Estimated RVSP is 37 mmHg. Left Ventricular Wall Motion: Rest Echo Findings The apex, apical inferior, mid inferior, basal inferior, apical anterior, mid anterior, basal anterior, apical septal, mid inferior septal, basal inferior septal, apical lateral, mid anterior lateral, basal anterior lateral, mid anterior septal, mid inferior lateral, basal anterior septal and basal inferior lateral georges were hypokinetic. Findings: Study Quality * Technically adequate exam. ECG Findings * Normal sinus rhythm. Left Ventricle * LVEF 40%. * Normal LV chamber size and wall thickness. * Global LV systolic dysfunction with regional variations. * Atypical septal motion consistent with post-operative status. * Moderate left ventricular diastolic dysfunction. Right Ventricle * Normal right ventricular structure with mildly reduced function. Left Atrium * Mildly dilated left atrium. Right Atrium * Mildly dilated right atrium. Aortic Valve * Aortic valve not well visualized. * No aortic regurgitation. * No aortic stenosis. Mitral Valve * Mild mitral annular calcification. * Mildly thickened mitral valve leaflets. * Trace mitral regurgitation. * No mitral stenosis. Tricuspid Valve * Normal tricuspid valve structure. * Mild-moderate tricuspid regurgitation. * Borderline mild pulmonary hypertension. * Estimated RVSP is 37 mmHg. * Estimated RA pressure is 5 mmHg. Pulmonic Valve * Normal pulmonic valve structure and function. * Trace pulmonic regurgitation. Aorta * Normally sized aortic root. Pericardium * The pericardium appears normal. IVC * Normal IVC dimensions and inspiratory collapse. Chest X-Ray 04/02/18 08:00 IMPRESSION: Small left pleural effusion with left basilar atelectasis with decreasing interstitial edema. D/ / 04/02/2018 08:19:31 Zen Baez MD / [facility] Interpreting Provider: Zen Baez MD - Assessment and plan (1) Congestive heart failure Current Visit: Yes Status: Acute Qualifiers: Heart failure type: combined systolic and diastolic Heart failure chronicity: acute on chronic Qualified Code(s): I50.43 - Acute on chronic combined systolic (congestive) and diastolic (congestive) heart failure (2) Elevated troponin Current Visit: Yes Status: Acute (3) Pulmonary embolism Current Visit: Yes Status: Acute Qualifiers: Pulmonary embolism type: unspecified Chronicity: acute Qualified Code(s): I26.99 - Other pulmonary embolism without acute cor pulmonale (4) Hyperglycemia Current Visit: Yes Status: Acute (5) Hx of CABG Current Visit: Yes Status: Acute (6) Thrombocytosis Current Visit: Yes Status: Acute (7) COPD (chronic obstructive pulmonary disease) Current Visit: Yes Status: Acute Qualifiers: COPD type: unspecified COPD Qualified Code(s): J44.9 - Chronic obstructive pulmonary disease, unspecified (8) Hyperkalemia Current Visit: Yes Status: Acute (9) Anxiety and depression Current Visit: Yes Status: Acute (10) Thyroid nodule Current Visit: Yes Status: Acute (11) Acute respiratory failure Current Visit: Yes Status: Acute Qualifiers: Respiratory failure complication: hypoxia Qualified Code(s): J96.01 - Acute respiratory failure with hypoxia - Time Spent With Patient Total time spent is greater than 50% in coordination of care (as documented) at patient's floor/unit and/or counseling patient: - Attending Attestation I examined this patient and my medical decision-making was reviewed with the Resident Physician. I agree with the documented findings, disposition and treatment plan as described except to the extent set forth below.
[2018-04-01] MEDS ORDERED: *HR* Heparin 5,000 UNIT/ML VIAL IVP ONE (17:57)
[2018-04-01] MEDS ORDERED: *HR* Heparin 5,000 UNIT/ML VIAL IVP PRN ×2 (17:57)
[2018-04-01] MEDS: Heparin 25,000 UNIT/500 ML D5W 25,000 UNIT/500 ML BAG IVC SCH (18:21)
[2018-04-01] MEDS ORDERED: Naloxone 0.4 MG/ML INJ IVP PRN (18:30)
[2018-04-01] MEDS ORDERED: Ipratropium/Albuterol Neb 3 ML IH PRN (18:44)
[2018-04-01] MEDS ORDERED: clonazePAM 1 MG TABLET PO PRN (18:47)
[2018-04-01] MEDS ORDERED: *HR* Dextrose 50 % in Water (Syg) 50 ML SYRINGE IVP PRN (18:55)
[2018-04-01] MEDS ORDERED: D5% in Water 1,000 ML IVC PRN (18:55)
[2018-04-01] MEDS ORDERED: Dextrose Gel 15 GM/37.5 ML TUBE PO PRN ×2 (18:55)
[2018-04-01 19:26] LABS: Basophils # 0.1 K/mcL (0.0-0.2); Basophils % 1.1 %; Eosinophils % 0.3 %; Hemoglobin 9.1 g/dL (11.5-15.4); Immature Granulocytes % 0.3 % (0-4); Lymphocytes # 1.6 K/mcL (0.6-4.6); Mean Corpuscular HGB Conc 30.3 g/dL (31.6-35.5); Mean Corpuscular Hemoglobin 25.3 pg (28.0-33.3); Mean Corpuscular Volume 83.3 fL (83.0-100.0); Monocytes # 0.6 K/mcL (0.0-1.3); Monocytes % 6.8 %; Neutrophils # 6.6 K/mcL (1.6-8.9); Nucleated Red Blood Cells 0.4 /100 WBC (0); Platelet Count 784 K/mcL (140-400); Red Cell Distribution Width 16.2 % (11.5-14.5); Segmented Neutrophils % 73.5 %
[2018-04-01 19:34] LABS: Heparin anti-factor XA UFH 0.46 IU/mL (0.30-0.70); INR 1.3; Prothrombin Time 14.3 Seconds (9.4-12.1)
[2018-04-01 19:50] LABS: Alanine Aminotransferase 24 Units/L (7-52); Albumin 3.9 g/dL (3.5-5.7); Albumin/Globulin Ratio 1.3 (1.1-2.2); Alkaline Phosphatase 125 Units/L (34-104); Aspartate Amino Transferase 23 Units/L (13-39); BUN/Creatinine Ratio 18 (6-26); Bilirubin,Total 0.6 mg/dL (0.3-1.0); Blood Urea Nitrogen 12 mg/dL (8-23); Calcium 9.4 mg/dL (8.6-10.3); Carbon Dioxide 26 mEq/L (23-29); Chloride 101 mEq/L (98-107); Creatine Kinase 48 Units/L (30-223); Glucose 140 mg/dL (70-105); Osmolality,Calculated 284 (280-300); Potassium 4.5 mEq/L (3.5-5.1); Sodium 136 mEq/L (136-145); Total Protein 6.9 g/dL (6.4-8.9); eGFR For Non-African Americans > 60 (> 60)
[2018-04-01] MEDS: Insulin LISPRO 300 UNITS/3 ML VIAL SQ SCH (20:28)
[2018-04-01] MEDS: tiZANidine 4 MG TABLET PO SCH (20:32)
[2018-04-01] MEDS: Furosemide 20 MG/2 ML VIAL IVP SCH (20:32)
[2018-04-01] MEDS ORDERED: 0.9 % Sodium Chloride 500 ML ONE (23:16)
[2018-04-01] MEDS ORDERED: 0.9 % Sodium Chloride 500 ML IVC ONE (23:19)
[2018-04-02 01:08] LABS: Basophils # 0.1 K/mcL (0.0-0.2); Basophils % 1.1 %; Eosinophils # 0.1 K/mcL (0.0-0.6); Eosinophils % 1.5 %; Hematocrit 29.7 % (35.3-44.9); Hemoglobin 8.8 g/dL (11.5-15.4); Immature Granulocytes % 0.4 % (0-4); Lymphocytes # 2.1 K/mcL (0.6-4.6); Lymphocytes % 22.1 %; Mean Corpuscular HGB Conc 29.6 g/dL (31.6-35.5); Mean Corpuscular Volume 84.4 fL (83.0-100.0); Mean Platelet Volume 9.6 fL (9.4-12.4); Monocytes # 0.8 K/mcL (0.0-1.3); Monocytes % 8.6 %; Neutrophils # 6.4 K/mcL (1.6-8.9); Nucleated Red Blood Cells 0.4 /100 WBC (0); Platelet Count 690 K/mcL (140-400); Red Blood Count 3.52 M/mcL (3.82-4.97); Red Cell Distribution Width 16.3 % (11.5-14.5); Segmented Neutrophils % 66.3 %
[2018-04-02 01:29] LABS: BUN/Creatinine Ratio 19 (6-26); Blood Urea Nitrogen 12 mg/dL (8-23); Carbon Dioxide 25 mEq/L (23-29); Chloride 102 mEq/L (98-107); Glucose 120 mg/dL (70-105); Osmolality,Calculated 285 (280-300); Potassium 4.1 mEq/L (3.5-5.1); Sodium 137 mEq/L (136-145); eGFR For Non-African Americans > 60 (> 60)
[2018-04-02 01:45] LABS: Troponin I 0.18 ng/mL (< 0.04)
--- NOTE | 2018-04-02 02:45 | Event Note ---
Date of Encounter: 04/01/18 Time of Encounter: 20:48 Alerted by pts. nurse RANJANA Leos that the pt. had a BP of 166/109. Previous was 161/62. Pt. was an admit from [facility] for tachycardia, acute PE in right lower lobe, small bilateral pleural effusions, elevated troponins, CHF, and thrombocytosis. Patient reported she had not received her BP meds today but had received first dose of IVP Lasix 20 mg. HR that time was 117. Instructed nurse to check BP Q15MIN x4 to see if Lasix helped patient's BP. Also change patient's Coreg dosing to begin tonight. Patient's BP is post Lasix administration were 162/98, 155/84, 145/79, 126/72 and 103/60.. HR 94. Went to see pt. who was resting in bed. Pt. stated that she sometimes has low BP but stated that she felt good. Alerted by nurse at 23:11 the patient's BP was dropping and last check was 95/51 followed by 85/48. 500 mL bolus ordered of 0.9 with instruction continue monitoring BP Q15MIN x4 after bolus was finished. BP is following administration of bolus were 97 or 63, 97/53, 120/64, and 119/65. Nurse instructed to continue monitoring pt. closely and alert me of any adverse changes immediately.
--- NOTE | 2018-04-02 08:41 | Internal Med Progress Note ---
<Parvin Woodward - Last Filed: 04/02/18 16:21> Hospitalist Progress Note - Encounter Date of Encounter: 04/02/18 - Exam Vitals: Temp Pulse Resp BP Pulse Ox 98.2 F 85 16 112/57 88 04/02/18 10:57 04/02/18 10:57 04/02/18 10:57 04/02/18 10:57 04/02/18 10:57 - Assessment and Plan (1) Congestive heart failure Current Visit: Yes Status: Acute (2) Elevated troponin Current Visit: Yes Status: Acute (3) Pulmonary embolism Current Visit: Yes Status: Acute (4) Hyperglycemia Current Visit: Yes Status: Acute (5) Hx of CABG Current Visit: Yes Status: Acute (6) Thrombocytosis Current Visit: Yes Status: Acute (7) COPD (chronic obstructive pulmonary disease) Current Visit: Yes Status: Acute (8) Hyperkalemia Current Visit: Yes Status: Acute (9) Anxiety and depression Current Visit: Yes Status: Acute (10) Thyroid nodule Current Visit: Yes Status: Acute (11) Acute respiratory failure Current Visit: Yes Status: Acute - Time Spent with Patient Total time spent is greater than 50% in coordination of care (as documented) at patient's floor/unit and/or counseling patient: Internal Medicine: Result - Labs CBC & Chem 7: 04/02/18 00:45 04/02/18 00:45 Labs: Short CBC 04/01/18 04/02/18 Range/Units 19:01 00:45 WBC 9.0 9.6 (4.3-11.1) K/mcL Hgb 9.1 L 8.8 L (11.5-15.4) g/dL Hct 30.0 L 29.7 L (35.3-44.9) % Plt Count 784 H 690 H (140-400) K/mcL Neutrophils # 6.6 6.4 (1.6-8.9) K/mcL BMP 04/01/18 04/02/18 19:01 00:45 Sodium 136 137 Potassium 4.5 4.1 Chloride 101 102 Carbon Dioxide 26 25 BUN 12 12 Creatinine 0.67 0.63 Glucose 140 H 120 H Calcium 9.4 9.0 Cardiac Enzymes 04/01/18 04/02/18 04/02/18 Range/Units 19:01 00:45 06:51 Troponin I 0.20 H* 0.18 H* 0.19 H* (< 0.04) ng/mL Liver Function 04/01/18 Range/Units 19:01 Total Bilirubin 0.6 (0.3-1.0) mg/dL AST 23 (13-39) Units/L ALT 24 (7-52) Units/L Alkaline Phosphatase 125 H (34-104) Units/L Albumin 3.9 (3.5-5.7) g/dL - ABG Interpretation ABG results: PT/INR, D-dimer PT 14.3 Seconds (9.4-12.1) H 04/01/18 19:01 - Impressions Impressions Echocardiogram 04/02/18 00:00 Impressions: LVEF 40%. Normal LV chamber size and wall thickness. Global LV systolic dysfunction with regional variations. Atypical septal motion consistent with post-operative status. Moderate left ventricular diastolic dysfunction. Normal right ventricular structure with mildly reduced function. Mild-moderate tricuspid regurgitation. Borderline mild pulmonary hypertension. Estimated RVSP is 37 mmHg. Left Ventricular Wall Motion: Rest Echo Findings The apex, apical inferior, mid inferior, basal inferior, apical anterior, mid anterior, basal anterior, apical septal, mid inferior septal, basal inferior septal, apical lateral, mid anterior lateral, basal anterior lateral, mid anterior septal, mid inferior lateral, basal anterior septal and basal inferior lateral georges were hypokinetic. Findings: Study Quality * Technically adequate exam. ECG Findings * Normal sinus rhythm. Left Ventricle * LVEF 40%. * Normal LV chamber size and wall thickness. * Global LV systolic dysfunction with regional variations. * Atypical septal motion consistent with post-operative status. * Moderate left ventricular diastolic dysfunction. Right Ventricle * Normal right ventricular structure with mildly reduced function. Left Atrium * Mildly dilated left atrium. Right Atrium * Mildly dilated right atrium. Aortic Valve * Aortic valve not well visualized. * No aortic regurgitation. * No aortic stenosis. Mitral Valve * Mild mitral annular calcification. * Mildly thickened mitral valve leaflets. * Trace mitral regurgitation. * No mitral stenosis. Tricuspid Valve * Normal tricuspid valve structure. * Mild-moderate tricuspid regurgitation. * Borderline mild pulmonary hypertension. * Estimated RVSP is 37 mmHg. * Estimated RA pressure is 5 mmHg. Pulmonic Valve * Normal pulmonic valve structure and function. * Trace pulmonic regurgitation. Aorta * Normally sized aortic root. Pericardium * The pericardium appears normal. IVC * Normal IVC dimensions and inspiratory collapse. Chest X-Ray 04/02/18 08:00 IMPRESSION: Small left pleural effusion with left basilar atelectasis with decreasing interstitial edema. D/ / 04/02/2018 08:19:31 Zen Baez MD / parvin Interpreting Provider: Zen Baez MD Consult Discharge Plan - Plan Referrals: Funmilayo Plasencia [Primary Care Provider] - - Attending Attestation I examined this patient and my medical decision-making was reviewed with the Resident Physician. I agree with the documented findings, disposition and treatment plan as described except to the extent set forth below. Patient has no complaints at this moment. She does not have SOB, and she has not had any more chest pain since admission. She denies fevers/chills, n/v. VS: reviewed, SBP as high as 160s but did go down to 85/48 but became normal after a 500 ml bolus of IV fluid. Physical exam shows no acute distress, skin warm, dry, CVS: RRR, lungs: Course breath sounds throughout, no labored breat sophie, no extremity edema. Right lower extremity with typical post-op erythema as noted yesterday. Labs: Hemoglobin 8.8, around baseline. Troponin 0.20, 0.18, 0.19 respectively while patient is asymptomatic. echocardiogram: LVEF 40% (prior was 30-35%), septal motion consistent with post-op status, moderate LV diastolic dys, mild pulmonary hypertension, no evidence of heart strain. A/P 1. Acute respiratory failure with hypoxia 2. Acute pulmonary embolism 3. Acute decompensated Heart Failure with Reduced Ejection Fraction - (known history of reduced EF heart failure) 4. CAD status post CABG x3 on 03/18/18 5. Hypertension 6. History of CVA - Continue heparin drip, supplemental O2, wean O2 as tolerated. - IV Lasix, strict I/Os, beta mark - Coreg, ANSLEY inhibitor - Lisinopril - Continue Aspirin, Plavix, Lipitor <Darcy Argueta - Last Filed: 04/02/18 18:43> Hospitalist Progress Note - Encounter Date of Encounter: 04/02/18 Time of Encounter: 08:41 - Subjective Interval History: Patient was seen and evaluated the bedside. She appears much improved, and reports that she is feeling much better. She is no longer requiring supplemental oxygen. Patient was noted to have decreased blood pressure overnight, with low of 85/48. She received 1 500 mL bolus of normal saline, with improvement noted. Patient denies any acute complaints or concerns at this time. - Exam Vitals: Temp Pulse Resp BP Pulse Ox 97.9 F 87 16 150/91 99 04/02/18 07:10 04/02/18 07:10 04/02/18 07:10 04/02/18 07:10 04/02/18 07:10 Exam: GENERAL: Pleasant adult female resting in bed comfortably. She does not appear to be in acute distress. HEENT: Atraumatic and normocephalic. CARDIOVASCULAR: Regular rate and rhythm. S1 and S2 present. No murmurs, gallops, or rubs appreciated. RESPIRATORY: Clear to auscultation bilaterally. Patient does not appear to have increased work of breathing, and is not using accessory muscles. EXTREMITIES: No clubbing, cyanosis, or pitting edema present. Ecchymoses present in bilateral lower extremities, with greater bruising on the right secondary to recent cardiovascular procedure. NEUROLOGIC: Patient is alert and oriented. She answers questions appropriately and is cooperative with exam. No apparent focal deficits. - Assessment and Plan (1) Acute respiratory failure Current Visit: Yes Status: Acute Assessment and Plan: Secondary to acute pulmonary embolism vs. CHF exacerbation vs. COPD exacerbation. Please see individual assessments for management plan. (2) Pulmonary embolism Current Visit: Yes Status: Acute Assessment and Plan: Patient was found to have right lower lobe pulmonary embolism on chest CTA performed at outside facility. She has symptomatically improved, and is no longer requiring supplemental oxygen therapy. Preliminary read of lower extremity Doppler reports no DVT; however, SVT was found in right GSV. Plan: - Heparin gtt - Continuous telemetry monitoring and pulse oximetry - Repeat echocardiogram interpretation pending (3) Congestive heart failure Current Visit: Yes Status: Acute Assessment and Plan: Suspect some degree of CHF exacerbation due to elevated BNP obtained in outside ED and CXR findings. Patient had an echocardiogram performed on 12/16/2017, which demonstrated LVEF of 45-50%. At that time, mild left ventricular diastolic dysfunction was noted, along with mild right ventricular hypokinesis, mildly dilated right ventricle, and mildly dilated left atrium. Limited echocardiogram performed on 03/11/2018 showed 30-35%, with severe global and segmental left ventricular systolic dysfunction, mild right ventricular hypokinesis, and mildly dilated left atrium. BNP was elevated on repeat laboratory studies, at 3972. Repeat chest x-ray performed this morning demonstrated small left pleural effusion with left basilar atelectasis and decreasing interstitial edema. - Lasix 20mg IV BID - Monitor strict I/Os and daily weights - Fluid restriction to 1.5L daily - Continue home doses of aspirin, atorvastatin, lisinopril, and carvedilol (4) COPD (chronic obstructive pulmonary disease) Current Visit: Yes Status: Acute Assessment and Plan: Low suspicion for acute COPD exacerbation due to sudden onset and patient's description of her symptoms. She has improved, and is no longer reporting respi ratory symptoms. She is also no longer requiring supplemental oxygen. - Duonebs Q4H PRN - Continue albuterol inhaler PRN (5) Hyperkalemia Current Visit: Yes Status: Resolved Assessment and Plan: Elevated serum potassium of 5.3 noted in outside records. Suspect secondary to potassium supplementation vs. rhabdomyolysis. Serum creatine kinase within normal limits. In-house laboratory studies demonstrate potassium within normal limits. We will continue to hold oral potassium, with daily monitoring to determine if supplementation is needed. (6) Elevated troponin Current Visit: Yes Status: Acute Assessment and Plan: Secondary to demand ischemia vs. acute respiratory distress vs. CHF exacerbation. Patient denies any cardiac symptoms at this time. Trended troponin levels were stable, and patient has not had any cardiac symptoms. High suspicion that this is secondary to her recent CABG. (7) Thrombocytosis Current Visit: Yes Status: Acute Assessment and Plan: Possibly reactive in nature, though etiology is unclear. Alkaline phosphatase was elevated at 125; however, other laboratory studies and LFTs are within normal limits. Patient has had a decrease in platelets on CBC, from 784 yesterday to 690 today. - Repeat CBC with AM labs - Consider peripheral smear is thrombocytosis worsens (8) Hyperglycemia Current Visit: Yes Status: Acute Assessment and Plan: Blood glucose of 180 noted on laboratory studies from outside ED. Patient states that she does not have diabetes and has not eaten today. Elevated glucose noted on in-house metabolic panels. A1c pending. - Low-dose sliding scale insulin ACHS (9) Hx of CABG Current Visit: Yes Status: Acute Assessment and Plan: Patient underwent CABG on 03/11/2018, with hospital discharge on 03/25/2018. - Continue oxycodone-acetaminophen 5-325mg Q4H PRN pain - Time Spent with Patient Total time spent is greater than 50% in coordination of care (as documented) at patient's floor/unit and/or counseling patient: Internal Medicine: Result - Labs CBC & Chem 7: 04/02/18 00:45 04/02/18 00:45 Labs: Short CBC 04/01/18 04/02/18 Range/Units 19:01 00:45 WBC 9.0 9.6 (4.3-11.1) K/mcL Hgb 9.1 L 8.8 L (11.5-15.4) g/dL Hct 30.0 L 29.7 L (35.3-44.9) % Plt Count 784 H 690 H (140-400) K/mcL Neutrophils # 6.6 6.4 (1.6-8.9) K/mcL BMP 04/01/18 04/02/18 19:01 00:45 Sodium 136 137 Potassium 4.5 4.1 Chloride 101 102 Carbon Dioxide 26 25 BUN 12 12 Creatinine 0.67 0.63 Glucose 140 H 120 H Calcium 9.4 9.0 Cardiac Enzymes 04/01/18 04/02/18 04/02/18 Range/Units 19:01 00:45 06:51 Troponin I 0.20 H* 0.18 H* 0.19 H* (< 0.04) ng/mL Liver Function 04/01/18 Range/Units 19:01 Total Bilirubin 0.6 (0.3-1.0) mg/dL AST 23 (13-39) Units/L ALT 24 (7-52) Units/L Alkaline Phosphatase 125 H (34-104) Units/L Albumin 3.9 (3.5-5.7) g/dL - ABG Interpretation ABG results: PT/INR, D-dimer PT 14.3 Seconds (9.4-12.1) H 04/01/18 19:01 - Impressions Impressions Chest X-Ray 04/02/18 08:00 IMPRESSION: Small left pleural effusion with left basilar atelectasis with decreasing interstitial edema. D/ / 04/02/2018 08:19:31 Zen Baez MD / parvin Interpreting Provider: Zen Baez MD <Parvin Woodward - Last Filed: 04/02/18 16:21> (1) Congestive heart failure Qualifiers: Heart failure type: combined systolic and diastolic Heart failure chronicity: acute on chronic Qualified Code(s): I50.43 - Acute on chronic combined systolic (congestive) and diastolic (congestive) heart failure (3) Pulmonary embolism Qualifiers: Pulmonary embolism type: unspecified Chronicity: acute Qualified Code(s): I26.99 - Other pulmonary embolism without acute cor pulmonale (7) COPD (chronic obstructive pulmonary disease) Qualifiers: COPD type: unspecified COPD Qualified Code(s): J44.9 - Chronic obstructive pulmonary disease, unspecified (11) Acute respiratory failure Qualifiers: Respiratory failure complication: hypoxia Qualified Code(s): J96.01 - Acute respiratory failure with hypoxia <aDrcy Argueta N - Last Filed: 04/02/18 18:43> (1) Acute respiratory failure Qualifiers: Respiratory failure complication: hypoxia Qualified Code(s): J96.01 - Acute respiratory failure with hypoxia (2) Pulmonary embolism Qualifiers: Pulmonary embolism type: unspecified Chronicity: acute (3) Congestive heart failure Qualifiers: Heart failure type: combined systolic and diastolic Heart failure chronicity: acute on chronic Qualified Code(s): I50.43 - Acute on chronic combined systolic (congestive) and diastolic (congestive) heart failure (4) COPD (chronic obstructive pulmonary disease) Qualifiers: COPD type: unspecified COPD Qualified Code(s): J44.9 - Chronic obstructive pulmonary disease, unspecified
[2018-04-02] MEDS: Cholecalciferol (D-3) 1,000 UNIT TABLET PO SCH (09:03)
[2018-04-02] MEDS: Furosemide 20 MG/2 ML VIAL IVP SCH ×2 (09:03→17:03)
[2018-04-02] MEDS: Aspirin 325 MG TABLET PO SCH (09:03)
[2018-04-02] MEDS: Insulin LISPRO 300 UNITS/3 ML VIAL SQ SCH ×4 (09:04→22:03)
[2018-04-02] MEDS ORDERED: Ondansetron ODT 4 MG TAB.RAPDIS SL PRN (14:58)
[2018-04-02] MEDS: Heparin 25,000 UNIT/500 ML D5W 25,000 UNIT/500 ML BAG IVC SCH (20:25)
[2018-04-02] MEDS: tiZANidine 4 MG TABLET PO SCH (22:10)
[2018-04-02] MEDS: *HR* OxyCODONE/APAP 5/325 TABLET PO PRN (22:15)
[2018-04-03 03:55] LABS: BUN/Creatinine Ratio 16 (6-26); Blood Urea Nitrogen 11 mg/dL (8-23); Calcium 8.6 mg/dL (8.6-10.3); Carbon Dioxide 29 mEq/L (23-29); Chloride 98 mEq/L (98-107); Glucose 104 mg/dL (70-105); Osmolality,Calculated 282 (280-300); Potassium 3.5 mEq/L (3.5-5.1); Sodium 136 mEq/L (136-145); eGFR For Non-African Americans > 60 (> 60)
[2018-04-03 04:14] LABS: Basophils # 0.1 K/mcL (0.0-0.2); Basophils % 1.1 %; Eosinophils # 0.4 K/mcL (0.0-0.6); Eosinophils % 4.3 %; Hematocrit 25.1 % (35.3-44.9); Hemoglobin 7.5 g/dL (11.5-15.4); Immature Granulocytes % 0.2 % (0-4); Lymphocytes # 2.5 K/mcL (0.6-4.6); Mean Corpuscular HGB Conc 29.9 g/dL (31.6-35.5); Mean Corpuscular Hemoglobin 24.6 pg (28.0-33.3); Mean Corpuscular Volume 82.3 fL (83.0-100.0); Mean Platelet Volume 9.7 fL (9.4-12.4); Monocytes # 0.7 K/mcL (0.0-1.3); Monocytes % 8.8 %; Neutrophils # 4.4 K/mcL (1.6-8.9); Platelet Count 638 K/mcL (140-400); Red Blood Count 3.05 M/mcL (3.82-4.97); Red Cell Distribution Width 16.2 % (11.5-14.5); Segmented Neutrophils % 54.6 %
[2018-04-03 06:51] LABS: Estimated Average Glucose 137 mg/dl; Hemoglobin A1C 6.4 %
--- NOTE | 2018-04-03 08:08 | Internal Med Progress Note ---
<Darcy Argueta N - Last Filed: 04/03/18 11:59> Hospitalist Progress Note - Encounter Date of Encounter: 04/03/18 Time of Encounter: 08:08 - Subjective Interval History: Patient was seen and evaluated the bedside. She is awake and alert. She states that she is feeling better overall. She was noted to have a decreased blood pres sure overnight, with a low of 80/45. Due to her CHF, this was not addressed with fluid resuscitation, and was instead allowed to rise normally. She voices no new complaints or concerns at this time. - Exam Vitals: Temp Pulse Resp BP Pulse Ox 97.9 F 86 16 133/71 100 04/03/18 07:00 04/03/18 07:00 04/03/18 07:00 04/03/18 07:00 04/03/18 07:00 Exam: GENERAL: Pleasant adult female resting in bed comfortably. She does not appear to be in acute distress. HEENT: Atraumatic and normocephalic. CARDIOVASCULAR: Regular rate and rhythm. S1 and S2 present. No murmurs, gallops, or rubs appreciated. RESPIRATORY: Diffusely decreased bilaterally, without any overt wheezes noted. Patient does not appear to have increased work of breathing, and is not using accessory muscles. EXTREMITIES: No clubbing, cyanosis, or pitting edema present. Ecchymoses present in bilateral lower extremities, with greater bruising on the right secondary to recent cardiovascular procedure. NEUROLOGIC: Patient is alert and oriented. She answers questions appropriately and is cooperative with exam. No apparent focal deficits. - Assessment and Plan (1) Pulmonary embolism Current Visit: Yes Status: Acute Assessment and Plan: Patient was found to have right lower lobe pulmonary embolism on chest CTA performed at outside facility. She has symptomatically improved, and is no longer requiring supplemental oxygen therapy. Preliminary read of lower extremity Doppler reports no DVT; however, SVT was found in right GSV. Plan: - Heparin gtt - Continuous telemetry monitoring and pulse oximetry (2) Congestive heart failure Current Visit: Yes Status: Acute Assessment and Plan: Suspect some degree of CHF exacerbation due to elevated BNP obtained in outside ED and CXR findings. Patient had an echocardiogram performed on 12/16/2017, which demonstrated LVEF of 45-50%. At that time, mild left ventricular diastolic dysfunction was noted, along with mild right ventricular hypokinesis, mildly dilated right ventricle, and mildly dilated left atrium. Limited echocardiogram performed on 03/11/2018 showed 30-35%, with severe global and segmental left ventricular systolic dysfunction, mild right ventricular hypokinesis, and mildly dilated left atrium. Repeat echocardiogram performed on 04/02/2018 demonstrated the following; LVEF 40%, and normal left ventricle chamber size and wall thickness, global left ventricle systolic dysfunction, atypical septal motion consistent with postoperative status, moderate left ventricular diastolic dysfunction, normal right ventricular structure with mildly reduced function, mildmoderate t ricuspid regurgitation, and borderline mild pulmonary hypertension. - Patient transitioned to oral Lasix. Will administer 1 20mg dose daily due to overnight blood pressure decrease. - Discontinue lisinopril due to overnight pressure. Will consider reinitiating this medication if patient begins to have hypertensive episodes. - Monitor strict I/Os and daily weights - Fluid restriction to 1.5L daily - Continue home doses of aspirin, atorvastatin, and carvedilol (3) COPD (chronic obstructive pulmonary disease) Current Visit: Yes Status: Acute Assessment and Plan: Low suspicion for acute COPD exacerbation due to sudden onset and patient's description of her symptoms. She has improved, and is no longer reporting respiratory symptoms. She is also no longer requiring supplemental oxygen. - Duonebs Q4H PRN - Continue albuterol inhaler PRN - We will consider starting patient on Symbicort prior to discharge. She would benefit from outpatient follow-up and disease management with pulmonology. (4) Thrombocytosis Current Visit: Yes Status: Acute Assessment and Plan: Possibly reactive in nature, though etiology is unclear. Alkaline phosphatase was elevated at 125; however, other laboratory studies and LFTs are within normal limits. - Repeat CBC with AM labs - Consider peripheral smear is thrombocytosis worsens (5) Hyperglycemia Current Visit: Yes Status: Acute Assessment and Plan: Blood glucose of 180 noted on laboratory studies from outside ED. Patient states that she does not have diabetes and has not eaten today. Elevated glucose noted on in-house metabolic panels. Hemoglobin A1c was elevated at 6.4, placing the patient into the category of prediabetes. - Low-dose sliding scale insulin ACHS - Recommend outpatient follow-up with primary care provider for ongoing management (6) Acute respiratory failure Current Visit: Yes Status: Acute Assessment and Plan: Secondary to acute pulmonary embolism vs. CHF exacerbation vs. COPD exacerbation. Please see individual assessments for management plan. DVT Prophylaxis: - Continue heparin drip - Time Spent with Patient Total time spent is greater than 50% in coordination of care (as documented) at patient's floor/unit and/or counseling patient: Internal Medicine: Result - Labs CBC & Chem 7: 04/03/18 08:47 04/03/18 02:59 Labs: Short CBC 04/03/18 Range/Units 02:59 WBC 8.1 (4.3-11.1) K/mcL Hgb 7.5 L (11.5-15.4) g/dL Hct 25.1 L (35.3-44.9) % Plt Count 638 H (140-400) K/mcL Neutrophils # 4.4 (1.6-8.9) K/mcL BMP 04/03/18 02:59 Sodium 136 Potassium 3.5 Chloride 98 Carbon Dioxide 29 BUN 11 Creatinine 0.67 Glucose 104 Calcium 8.6 - ABG Interpretation ABG results: PT/INR, D-dimer PT 14.3 Seconds (9.4-12.1) H 04/01/18 19:01 - Impressions Impressions Echocardiogram 04/02/18 00:00 Impressions: LVEF 40%. Normal LV chamber size and wall thickness. Global LV systolic dysfunction with regional variations. Atypical septal motion consistent with post-operative status. Moderate left ventricular diastolic dysfunction. Normal right ventricular structure with mildly reduced function. Mild-moderate tricuspid regurgitation. Borderline mild pulmonary hypertension. Estimated RVSP is 37 mmHg. Left Ventricular Wall Motion: Rest Echo Findings The apex, apical inferior, mid inferior, basal inferior, apical anterior, mid anterior, basal anterior, apical septal, mid inferior septal, basal inferior septal, apical lateral, mid anterior lateral, basal anterior lateral, mid anterior septal, mid inferior lateral, basal anterior septal and basal inferior lateral georges were hypokinetic. Findings: Study Quality * Technically adequate exam. ECG Findings * Normal sinus rhythm. Left Ventricle * LVEF 40%. * Normal LV chamber size and wall thickness. * Global LV systolic dysfunction with regional variations. * Atypical septal motion consistent with post-operative status. * Moderate left ventricular diastolic dysfunction. Right Ventricle * Normal right ventricular structure with mildly reduced function. Left Atrium * Mildly dilated left atrium. Right Atrium * Mildly dilated right atrium. Aortic Valve * Aortic valve not well visualized. * No aortic regurgitation. * No aortic stenosis. Mitral Valve * Mild mitral annular calcification. * Mildly thickened mitral valve leaflets. * Trace mitral regurgitation. * No mitral stenosis. Tricuspid Valve * Normal tricuspid valve structure. * Mild-moderate tricuspid regurgitation. * Borderline mild pulmonary hypertension. * Estimated RVSP is 37 mmHg. * Estimated RA pressure is 5 mmHg. Pulmonic Valve * Normal pulmonic valve structure and function. * Trace pulmonic regurgitation. Aorta * Normally sized aortic root. Pericardium * The pericardium appears normal. IVC * Normal IVC dimensions and inspiratory collapse. Chest X-Ray 04/02/18 08:00 IMPRESSION: Small left pleural effusion with left basilar atelectasis with decreasing interstitial edema. D/ / 04/02/2018 08:19:31 Zen Baez MD / parvni Interpreting Provider: Zen Baez MD Consult Discharge Plan - Plan Referrals: Funmilayo Plasencia [Primary Care Provider] - <Parvin Woodward - Last Filed: 04/03/18 14:50> Hospitalist Progress Note - Encounter Date of Encounter: 04/03/18 - Exam Vitals: Temp Pulse Resp BP Pulse Ox 97.9 F 89 15 153/83 99 04/03/18 07:00 04/03/18 11:07 04/03/18 11:07 04/03/18 11:07 04/03/18 11:07 - Assessment and Plan (1) Congestive heart failure Current Visit: Yes Status: Acute (2) Pulmonary embolism Current Visit: Yes Status: Acute (3) Hyperglycemia Current Visit: Yes Status: Acute (4) Thrombocytosis Current Visit: Yes Status: Acute (5) COPD (chronic obstructive pulmonary disease) Current Visit: Yes Status: Acute (6) Acute respiratory failure Current Visit: Yes Status: Acute - Time Spent with Patient Total time spent is greater than 50% in coordination of care (as documented) at patient's floor/unit and/or counseling patient: Internal Medicine: Result - Labs CBC & Chem 7: 04/03/18 08:47 04/03/18 02:59 Labs: Short CBC 04/03/18 04/03/18 Range/Units 02:59 08:47 WBC 8.1 7.3 (4.3-11.1) K/mcL Hgb 7.5 L 8.9 L (11.5-15.4) g/dL Hct 25.1 L 29.9 L (35.3-44.9) % Plt Count 638 H 673 H (140-400) K/mcL Neutrophils # 4.4 3.9 (1.6-8.9) K/mcL [facility] 04/03/18 02:59 Sodium 136 Potassium 3.5 Chloride 98 Carbon Dioxide 29 BUN 11 Creatinine 0.67 Glucose 104 Calcium 8.6 - ABG Interpretation ABG results: PT/INR, D-dimer PT 14.3 Seconds (9.4-12.1) H 04/01/18 19:01 - Attending Attestation I examined this patient and my medical decision-making was reviewed with the Resident Physician. I agree with the documented findings, disposition and treatment plan as described except to the extent set forth below. Denies SOB, chest pain. She denies fevers/chills, n/v. VS: reviewed, VS: reviewed, hypotensive overnight with HR in normal limits (on BB) CVS: RRR, lungs: Course breath sounds throughout, no labored breathing, no extremity gayatri a. Right lower extremity with typical post-op erythema unchanged. Labs: reviewed A/P 1. Acute respiratory failure with hypoxia 2. Acute pulmonary embolism 3. Acute decompensated Heart Failure with Reduced Ejection Fraction - (known history of reduced EF heart failure) 4. CAD status post CABG x3 on 03/18/18 5. Hypertension 6. History of CVA 7. Hypotension - currently requires diuresis with IV Lasix but BP low. Episodes usually occur overnight. Hold lisinopril. Stop evening Lasix, and do morning only. <Darcy Argueta N - Last Filed: 04/03/18 11:59> (1) Pulmonary embolism Qualifiers: Pulmonary embolism type: unspecified Chronicity: acute (2) Congestive heart failure Qualifiers: Heart failure type: combined systolic and diastolic Heart failure chronicity: acute on chronic Qualified Code(s): I50.43 - Acute on chronic combined systolic (congestive) and diastolic (congestive) heart failure (3) COPD (chronic obstructive pulmonary disease) Qualifiers: COPD type: unspecified COPD Qualified Code(s): J44.9 - Chronic obstructive pulmonary disease, unspecified (6) Acute respiratory failure Qualifiers: Respiratory failure complication: hypoxia Qualified Code(s): J96.01 - Acute respiratory failure with hypoxia <Parvin Woodward - Last Filed: 04/03/18 14:50> (1) Congestive heart failure Qualifiers: Heart failure type: combined systolic and diastolic Heart failure chronicity: acute on chronic Qualified Code(s): I50.43 - Acute on chronic combined systolic (congestive) and diastolic (congestive) heart failure (2) Pulmonary embolism Qualifiers: Pulmonary embolism type: unspecified Chronicity: acute (5) COPD (chronic obstructive pulmonary disease) Qualifiers: COPD type: unspecified COPD Qualified Code(s): J44.9 - Chronic obstructive pulmonary disease, unspecified (6) Acute respiratory failure Qualifiers: Respiratory failure complication: hypoxia Qualified Code(s): J96.01 - Acute respiratory failure with hypoxia
[2018-04-03 09:11] LABS: Basophils # 0.1 K/mcL (0.0-0.2); Basophils % 1.2 %; Eosinophils # 0.4 K/mcL (0.0-0.6); Hematocrit 29.9 % (35.3-44.9); Hemoglobin 8.9 g/dL (11.5-15.4); Immature Granulocytes % 0.4 % (0-4); Lymphocytes # 2.2 K/mcL (0.6-4.6); Lymphocytes % 29.8 %; Mean Corpuscular HGB Conc 29.8 g/dL (31.6-35.5); Mean Corpuscular Hemoglobin 25.1 pg (28.0-33.3); Mean Corpuscular Volume 84.2 fL (83.0-100.0); Mean Platelet Volume 9.5 fL (9.4-12.4); Monocytes # 0.7 K/mcL (0.0-1.3); Monocytes % 9.8 %; Neutrophils # 3.9 K/mcL (1.6-8.9); Platelet Count 673 K/mcL (140-400); Red Blood Count 3.55 M/mcL (3.82-4.97); Red Cell Distribution Width 15.9 % (11.5-14.5); Segmented Neutrophils % 53.8 %
[2018-04-03] MEDS: Aspirin 325 MG TABLET PO SCH (10:15)
[2018-04-03] MEDS: Cholecalciferol (D-3) 1,000 UNIT TABLET PO SCH (10:17)
[2018-04-03] MEDS: Insulin LISPRO 300 UNITS/3 ML VIAL SQ SCH ×4 (10:19→23:20)
[2018-04-03] MEDS: Pantoprazole 40 MG VIAL IVP SCH (18:08)
[2018-04-03] MEDS: Heparin 25,000 UNIT/500 ML D5W 25,000 UNIT/500 ML BAG IVC SCH (18:09)
[2018-04-03] MEDS: Furosemide 20 MG/2 ML VIAL IVP SCH (18:26)
[2018-04-03] MEDS: *HR* OxyCODONE/APAP 5/325 TABLET PO PRN (23:50)
[2018-04-04 03:25] LABS: Basophils # 0.1 K/mcL (0.0-0.2); Basophils % 1.1 %; Eosinophils # 0.3 K/mcL (0.0-0.6); Eosinophils % 3.4 %; Hematocrit 28.9 % (35.3-44.9); Hemoglobin 8.7 g/dL (11.5-15.4); Immature Granulocytes % 0.2 % (0-4); Lymphocytes # 2.3 K/mcL (0.6-4.6); Lymphocytes % 27.7 %; Mean Corpuscular HGB Conc 30.1 g/dL (31.6-35.5); Mean Corpuscular Hemoglobin 24.9 pg (28.0-33.3); Mean Corpuscular Volume 82.8 fL (83.0-100.0); Mean Platelet Volume 9.7 fL (9.4-12.4); Monocytes # 0.8 K/mcL (0.0-1.3); Monocytes % 9.3 %; Neutrophils # 4.7 K/mcL (1.6-8.9); Nucleated Red Blood Cells 0.4 /100 WBC (0); Platelet Count 732 K/mcL (140-400); Red Blood Count 3.49 M/mcL (3.82-4.97); Red Cell Distribution Width 15.9 % (11.5-14.5); Segmented Neutrophils % 58.3 %
[2018-04-04 03:48] LABS: BUN/Creatinine Ratio 14 (6-26); Blood Urea Nitrogen 10 mg/dL (8-23); Carbon Dioxide 28 mEq/L (23-29); Chloride 99 mEq/L (98-107); Glucose 140 mg/dL (70-105); Osmolality,Calculated 281 (280-300); Potassium 3.8 mEq/L (3.5-5.1); Sodium 135 mEq/L (136-145); eGFR For Non-African Americans > 60 (> 60)
[2018-04-04] MEDS: Pantoprazole 40 MG VIAL IVP SCH ×2 (06:17→17:48)
[2018-04-04] MEDS: Insulin LISPRO 300 UNITS/3 ML VIAL SQ SCH ×4 (07:27→22:34)
[2018-04-04] MEDS: Furosemide 20 MG TABLET PO SCH (07:31)
--- NOTE | 2018-04-04 08:02 | Internal Med Progress Note ---
<Parvin Woodward - Last Filed: 04/04/18 14:10> Hospitalist Progress Note - Encounter Date of Encounter: 04/04/18 - Exam Vitals: Temp Pulse Resp BP Pulse Ox 98.3 F 95 14 185/107 97 04/04/18 04:00 04/04/18 11:14 04/04/18 04:00 04/04/18 11:14 04/04/18 08:57 - Assessment and Plan (1) Congestive heart failure Current Visit: Yes Status: Acute (2) Pulmonary embolism Current Visit: Yes Status: Acute (3) Hyperglycemia Current Visit: Yes Status: Acute (4) Thrombocytosis Current Visit: Yes Status: Acute (5) COPD (chronic obstructive pulmonary disease) Current Visit: Yes Status: Acute (6) Acute respiratory failure Current Visit: Yes Status: Acute - Time Spent with Patient Total time spent is greater than 50% in coordination of care (as documented) at patient's floor/unit and/or counseling patient: Internal Medicine: Result - Labs CBC & Chem 7: 04/04/18 03:00 04/04/18 03:00 Labs: Short CBC 04/04/18 Range/Units 03:00 WBC 8.1 (4.3-11.1) K/mcL Hgb 8.7 L (11.5-15.4) g/dL Hct 28.9 L (35.3-44.9) % Plt Count 732 H (140-400) K/mcL Neutrophils # 4.7 (1.6-8.9) K/mcL BMP 04/04/18 03:00 Sodium 135 L Potassium 3.8 Chloride 99 Carbon Dioxide 28 BUN 10 Creatinine 0.72 Glucose 140 H Calcium 9.0 - ABG Interpretation ABG results: PT/INR, D-dimer PT 14.3 Seconds (9.4-12.1) H 04/01/18 19:01 Consult Discharge Plan - Plan Referrals: Funmilayo Plasencia [Primary Care Provider] - - Attending Attestation I examined this patient and my medical decision-making was reviewed with the Resident Physician. I agree with the documented findings, disposition and treatment plan as described except to the extent set forth below. No complaints. No hypotensive episodes after BP meds held. VS: reviewed. Physical exam shows patient still having some course breath sounds without any wheezing or rhonchi, she is in no acute distress. Labs: reviewed. Patient still requiring O2 and is slightly volume overloaded, which has been improving with diuresis. Continue heparin drip, transition to oral anticoagulation today. Wean oxygen as tolerated. Patient might need to go home on oxygen, will do O2 qualification test in 1-2 days. <Polk,Lacey N - Last Filed: 04/04/18 17:20> Hospitalist Progress Note - Encounter Date of Encounter: 04/04/18 Time of Encounter: 08:02 - Subjective Interval History: Patient was seen and evaluated the bedside. She is awake and alert. She denies any new complaints or concerns. She was noted to have an elevated BP overnight and this morning, which was addressed with one dose of IV labetalol. Nursing staff reports no other overnight events. - Exam Vitals: Temp Pulse Resp BP Pulse Ox 98.3 F 105 14 177/106 97 04/04/18 04:00 04/04/18 06:46 04/04/18 04:00 04/04/18 06:46 04/04/18 06:46 Exam: GENERAL: Pleasant adult female resting in bed comfortably. She does not appear to be in acute distress. HEENT: Atraumatic and normocephalic. Nasal canula in place. CARDIOVASCULAR: Regular rate and rhythm. S1 and S2 present. No murmurs, gallops, or rubs appreciated. RESPIRATORY: Diffusely decreased bilaterally, without any overt wheezes noted. Patient does not appear to have increased work of breathing, and is not using accessory muscles. EXTREMITIES: No clubbing, cyanosis, or pitting edema present. Ecchymoses present in bilateral lower extremities, with greater bruising on the right secondary to recent cardiovascular procedure. NEUROLOGIC: Patient is alert and oriented. She answers questions appropriately and is cooperative with exam. No apparent focal deficits. - Assessment and Plan (1) Pulmonary embolism Current Visit: Yes Status: Acute Assessment and Plan: Patient was found to have right lower lobe pulmonary embolism on chest CTA performed at outside facility. She has symptomatically improved, and is no longer requiring supplemental oxygen therapy. Preliminary read of lower extremity Doppler reports no DVT; however, SVT was found in right GSV. Plan: - Heparin gtt - Continuous telemetry monitoring and pulse oximetry - Will transition to oral anticoagulation therapy tomorrow after determination of what medications her insurance will cover (2) Congestive heart failure Current Visit: Yes Status: Acute Assessment and Plan: Suspect some degree of CHF exacerbation due to elevated BNP obtained in outside ED and CXR findings. Patient had an echocardiogram performed on 12/16/2017, which demonstrated LVEF of 45-50%. At that time, mild left ventricular diastolic dysfunction was noted, along with mild right ventricular hypokinesis, mildly dilated right ventricle, and mildly dilated left atrium. Limited echocardiogram performed on 03/11/2018 showed 30-35%, with severe global and segmental left ventricular systolic dy sfunction, mild right ventricular hypokinesis, and mildly dilated left atrium. Repeat echocardiogram performed on 04/02/2018 demonstrated the following; LVEF 40%, and normal left ventricle chamber size and wall thickness, global left ventricle systolic dysfunction, atypical septal motion consistent with postoperative status, moderate left ventricular diastolic dysfunction, normal right ventricular structure with mildly reduced function, mildmoderate tricuspid regurgitation, and borderline mild pulmonary hypertension. - Continue lasix 20mg daily - Restart lisinopril 5mg - Monitor strict I/Os and daily weights - Fluid restriction to 1.5L daily - Continue home doses of aspirin, atorvastatin, and carvedilol (3) COPD (chronic obstructive pulmonary disease) Current Visit: Yes Status: Acute Assessment and Plan: Low suspicion for acute COPD exacerbation due to sudden onset and patient's description of her symptoms. She has improved, and is no longer reporting respiratory symptoms. She is also no longer requiring supplemental oxygen. - Duonebs Q4H PRN - Continue albuterol inhaler PRN - Recommend followup with PCP regarding chronic management of her COPD (4) Thrombocytosis Current Visit: Yes Status: Acute Assessment and Plan: Possibly reactive in nature, though etiology is unclear. Alkaline phosphatase was elevated at 125; however, other laboratory studies and LFTs are within normal limits. Peripheral smear obtained today. Pathologist's interpretation is as follows: Normocytic anemia with increased anisopoikilocytosis with elliptocytes and rare acanthocytes and occasional target cells rule out iron deficiency and liver disesae. Thrombocytosis which may be reactive and could be secondary to inflammatory process or infection or iron deficiency. Differential diagnosis includes possibility of myeloproliferative process. - Continue daily CBC - Recommend further outpatient workup if thrombocytosis persists (5) Hyperglycemia Current Visit: Yes Status: Acute Assessment and Plan: Blood glucose of 180 noted on laboratory studies from outside ED. Patient states that she does not have diabetes and has not eaten today. Elevated glucose noted on in-house metabolic panels. Hemoglobin A1c was elevated at 6.4, placing the patient into the category of prediabetes. - Low-dose sliding scale insulin ACHS - Recommend outpatient follow-up with primary care provider for ongoing management DVT Prophylaxis: - Heparin gtt - Time Spent with Patient Total time spent is greater than 50% in coordination of care (as documented) at patient's floor/unit and/or counseling patient: Internal Medicine: Result - Labs CBC & Chem 7: 04/04/18 03:00 04/04/18 03:00 Labs: Short CBC 04/03/18 04/04/18 Range/Units 08:47 03:00 WBC 7.3 8.1 (4.3-11.1) K/mcL Hgb 8.9 L 8.7 L (11.5-15.4) g/dL Hct 29.9 L 28.9 L (35.3-44.9) % Plt Count 673 H 732 H (140-400) K/mcL Neutrophils # 3.9 4.7 (1.6-8.9) K/mcL BMP 04/04/18 03:00 Sodium 135 L Potassium 3.8 Chloride 99 Carbon Dioxide 28 BUN 10 Creatinine 0.72 Glucose 140 H Calcium 9.0 - ABG Interpretation ABG results: PT/INR, D-dimer PT 14.3 Seconds (9.4-12.1) H 04/01/18 19:01 <Parvin Woodward - Last Filed: 04/04/18 14:10> (1) Congestive heart failure Qualifiers: Heart failure type: combined systolic and diastolic Heart failure chronicity: acute on chronic Qualified Code(s): I50.43 - Acute on chronic combined systolic (congestive) and diastolic (congestive) heart failure (2) Pulmonary embolism Qualifiers: Pulmonary embolism type: unspecified Chronicity: acute (5) COPD (chronic obstructive pulmonary disease) Qualifiers: COPD type: unspecified COPD Qualified Code(s): J44.9 - Chronic obstructive pulmonary disease, unspecified (6) Acute respiratory failure Qualifiers: Respiratory failure complication: hypoxia Qualified Code(s): J96.01 - Acute respiratory failure with hypoxia <Darcy Argueta - Last Filed: 04/04/18 17:20> (1) Pulmonary embolism Qualifiers: Pulmonary embolism type: unspecified Chronicity: acute (2) Congestive heart failure Qualifiers: Heart failure type: combined systolic and diastolic Heart failure chronicity: acute on chronic Qualified Code(s): I50.43 - Acute on chronic combined systolic (congestive) and diastolic (congestive) heart failure (3) COPD (chronic obstructive pulmonary disease) Qualifiers: COPD type: unspecified COPD Qualified Code(s): J44.9 - Chronic obstructive pulmonary disease, unspecified
[2018-04-04] MEDS ORDERED: *HR* Labetalol 20 MG/4 ML SYRINGE IVP ONE (08:06)
[2018-04-04] MEDS: Cholecalciferol (D-3) 1,000 UNIT TABLET PO SCH (08:50)
[2018-04-04] MEDS: Aspirin 325 MG TABLET PO SCH (08:50)
[2018-04-04] MEDS ORDERED: Furosemide 40 MG/4 ML VIAL IVP ONE (09:09)
--- NOTE | 2018-04-04 17:11 | Electrocardiograph Report ---
[place] [id number] Test Date: 2018-04-02 Pat Name: Ratna Diallo Department: 111 Room: 2NE29 Gender: F Plant General Manager: : [id number] Requested By: Darcy Argueta Order Number: [id number] Reading MD: Mandeep Palm Measurements Intervals Arvin Rate: 89 P: 63 LA: 185 QRS: 27 QRSD: 100 T: 202 QT: 385 QTc: 431 Interpretive Statements SINUS RHYTHM LEFT ATRIAL ENLARGEMENT LEFT VENTRICULAR HYPERTROPHY AND ST-T CHANGE Electronically Signed On 04-04-2018 17:09:43 EST by Mandeep Palm
[2018-04-04] MEDS: Heparin 25,000 UNIT/500 ML D5W 25,000 UNIT/500 ML BAG IVC SCH (19:55)
[2018-04-04] MEDS: Melatonin 3 MG TABLET PO SCH (19:55)
[2018-04-05 04:44] LABS: Basophils # 0.1 K/mcL (0.0-0.2); Basophils % 0.9 %; Eosinophils # 0.3 K/mcL (0.0-0.6); Eosinophils % 3.4 %; Hematocrit 31.2 % (35.3-44.9); Hemoglobin 9.3 g/dL (11.5-15.4); Immature Granulocytes % 0.4 % (0-4); Lymphocytes # 1.8 K/mcL (0.6-4.6); Lymphocytes % 18.3 %; Mean Corpuscular HGB Conc 29.8 g/dL (31.6-35.5); Mean Corpuscular Hemoglobin 24.6 pg (28.0-33.3); Mean Corpuscular Volume 82.5 fL (83.0-100.0); Mean Platelet Volume 9.6 fL (9.4-12.4); Monocytes % 10.2 %; Neutrophils # 6.6 K/mcL (1.6-8.9); Platelet Count 694 K/mcL (140-400); Red Blood Count 3.78 M/mcL (3.82-4.97); Red Cell Distribution Width 15.9 % (11.5-14.5); Segmented Neutrophils % 66.8 %
[2018-04-05 05:10] LABS: BUN/Creatinine Ratio 15 (6-26); Blood Urea Nitrogen 9 mg/dL (8-23); Carbon Dioxide 30 mEq/L (23-29); Chloride 96 mEq/L (98-107); Glucose 145 mg/dL (70-105); Osmolality,Calculated 285 (280-300); Potassium 3.4 mEq/L (3.5-5.1); Sodium 137 mEq/L (136-145); eGFR For Non-African Americans > 60 (> 60)
[2018-04-05] MEDS: *HR* OxyCODONE/APAP 5/325 TABLET PO PRN ×2 (05:27→12:03)
[2018-04-05] MEDS: Pantoprazole 40 MG VIAL IVP SCH ×2 (05:28→16:51)
--- NOTE | 2018-04-05 08:43 | Internal Med Progress Note ---
<Darcy Argueta N - Last Filed: 04/05/18 16:05> Hospitalist Progress Note - Encounter Date of Encounter: 04/05/18 Time of Encounter: 08:43 - Subjective Interval History: Patient was seen and evaluated the bedside. She reports that she was able to sleep last night. She denies any acute complants or concerns. Nursing staff reports no acute overnight events. - Exam Vitals: Temp Pulse Resp BP Pulse Ox 98 F 96 14 144/85 99 04/05/18 04:00 04/05/18 06:43 04/05/18 04:00 04/05/18 06:43 04/05/18 06:43 Exam: GENERAL: Pleasant adult female sleeping comfortably. She does not appear to be in acute distress. HEENT: Atraumatic and normocephalic. Nasal canula in place. CARDIOVASCULAR: Regular rate and rhythm. S1 and S2 present. No murmurs, gallops, or rubs appreciated. RESPIRATORY: Diffusely decreased bilaterally, without any overt wheezes noted. Patient does not appear to have increased work of breathing, and is not using accessory muscles. EXTREMITIES: No clubbing, cyanosis, or pitting edema present. Ecchymoses present in bilateral lower extremities, with greater bruising on the right secondary to recent cardiovascular procedure. NEUROLOGIC: Patient answers questions appropriately and is cooperative with exam. No apparent focal deficits. - Assessment and Plan (1) Pulmonary embolism Current Visit: Yes Status: Acute Assessment and Plan: Patient was found to have right lower lobe pulmonary embolism on chest CTA perfo rmed at outside facility. She has symptomatically improved, and is no longer requiring supplemental oxygen therapy. Preliminary read of lower extremity Doppler reports no DVT; however, SVT was found in right GSV. Plan: - Transitioned to xarelto 15mg BID - Continuous telemetry monitoring and pulse oximetry (2) Congestive heart failure Current Visit: Yes Status: Acute Assessment and Plan: Suspect some degree of CHF exacerbation due to elevated BNP obtained in outside ED and CXR findings. Patient had an echocardiogram performed on 12/16/2017, which demonstrated LVEF of 45-50%. At that time, mild left ventricular diastolic dysfunction was noted, along with mild right ventricular hypokinesis, mildly dilated right ventricle, and mildly dilated left atrium. Limited echocardiogram performed on 03/11/2018 showed 30-35%, with severe global and segmental left ventricular systolic dysfunction, mild right ventricular hypokinesis, and mildly dilated left atrium. Repeat echocardiogram performed on 04/02/2018 demonstrated the following; LVEF 40%, and normal left ventricle chamber size and wall thickness, global left ventricle systolic dysfunction, atypical septal motion consistent with postoperative status, moderate left ventricular diastolic dysfunction, normal right ventricular structure with mildly reduced function, mildmoderate tricuspid regurgitation, and borderline mild pulmonary hypertension. Additional dose of lasix 20mg IV this afternoon due to positive overall fluid balance and hypertension. Patient does not have any overt edema present. - Continue lasix 20mg daily - Monitor strict I/Os and daily weights - Fluid restriction to 1.5L daily - Continue home doses of aspirin, atorvastatin, lisinopril, and carvedilol (3) Thrombocytosis Current Visit: Yes Status: Acute Assessment and Plan: Possibly reactive in nature, though etiology is unclear. Alkaline phosphatase was elevated at 125; however, other laboratory studies and LFTs are within normal limits. Peripheral smear obtained today. Pathologist's interpretation is as follows: Normocytic anemia with increased anisopoikilocytosis with elliptocytes and rare acanthocytes and occasional target cells rule out iron deficiency and liver disesae. Thrombocytosis which may be reactive and could be secondary to inflammatory process or infection or iron deficiency. Differential diagnosis includes possibility of myeloproliferative process. - Continue daily CBC - Recommend further outpatient workup if thrombocytosis persists (4) Hyperglycemia Current Visit: Yes Status: Acute Assessment and Plan: - Low-dose sliding scale insulin ACHS - Recommend outpatient follow-up with primary care provider for ongoing management (5) COPD (chronic obstructive pulmonary disease) Current Visit: Yes Status: Acute Assessment and Plan: Low suspicion for acute COPD exacerbation due to sudden onset and patient's description of her symptoms. She has improved, and is no longer reporting respiratory symptoms. She is also no longer requiring supplemental oxygen. - Duonebs Q4H PRN - Recommend followup with PCP regarding chronic management of her COPD - Time Spent with Patient Total time spent is greater than 50% in coordination of care (as documented) at patient's floor/unit and/or counseling patient: Internal Medicine: Result - Labs CBC & Chem 7: 04/05/18 04:27 04/05/18 04:27 Labs: Short CBC 04/04/18 04/05/18 Range/Units 03:00 04:27 WBC 8.1 9.8 (4.3-11.1) K/mcL Hgb 8.7 L 9.3 L (11.5-15.4) g/dL Hct 28.9 L 31.2 L (35.3-44.9) % Plt Count 732 H 694 H (140-400) K/mcL Neutrophils # 4.7 6.6 (1.6-8.9) K/mcL BMP 04/04/18 04/05/18 03:00 04:27 Sodium 135 L 137 Potassium 3.8 3.4 L Chloride 99 96 L Carbon Dioxide 28 30 H BUN 10 9 Creatinine 0.72 0.61 Glucose 140 H 145 H Calcium 9.0 9.0 - ABG Interpretation ABG results: PT/INR, D-dimer PT 14.3 Seconds (9.4-12.1) H 04/01/18 19:01 Consult Discharge Plan - Plan Referrals: Funmilayo Plasencia [Primary Care Provider] - <Parvin Woodward - Last Filed: 04/05/18 17:15> Hospitalist Progress Note - Encounter Date of Encounter: 04/05/18 - Exam Vitals: Temp Pulse Resp BP Pulse Ox 98 F 89 14 94/60 99 04/05/18 04:00 04/05/18 15:13 04/05/18 04:00 04/05/18 15:13 04/05/18 06:43 - Assessment and Plan (1) Congestive heart failure Current Visit: Yes Status: Acute (2) Pulmonary embolism Current Visit: Yes Status: Acute (3) Hyperglycemia Current Visit: Yes Status: Acute (4) Thrombocytosis Current Visit: Yes Status: Acute (5) COPD (chronic obstructive pulmonary disease) Current Visit: Yes Status: Acute - Time Spent with Patient Total time spent is greater than 50% in coordination of care (as documented) at patient's floor/unit and/or counseling patient: Internal Medicine: Result - Labs CBC & Chem 7: 04/05/18 04:27 04/05/18 04:27 Labs: Short CBC 04/05/18 Range/Units 04:27 WBC 9.8 (4.3-11.1) K/mcL Hgb 9.3 L (11.5-15.4) g/dL Hct 31.2 L (35.3-44.9) % Plt Count 694 H (140-400) K/mcL Neutrophils # 6.6 (1.6-8.9) K/mcL BMP 04/05/18 04:27 Sodium 137 Potassium 3.4 L Chloride 96 L Carbon Dioxide 30 H BUN 9 Creatinine 0.61 Glucose 145 H Calcium 9.0 - ABG Interpretation ABG results: PT/INR, D-dimer PT 14.3 Seconds (9.4-12.1) H 04/01/18 19:01 - Attending Attestation I examined this patient and my medical decision-making was reviewed with the Resident Physician. I agree with the documented findings, disposition and dillan tment plan as described except to the extent set forth below. Patient states she woke up feeling short of breath last night and felt help with oxygen that she was wearing. She denied chest pain, n/v, palpitations. VS: reviewed. Physical exam shows lungs have rales course mostly at bases. Labs: reviewed. A/P: continue current management, transition to Xarelto and DC h eparin, continue IV Lasix. Possibly home tomorrow. Will need O2 qualification test. _ <Darcy Argueta N - Last Filed: 04/05/18 16:05> (1) Pulmonary embolism Qualifiers: Pulmonary embolism type: unspecified Chronicity: acute (2) Congestive heart failure Qualifiers: Heart failure type: combined systolic and diastolic Heart failure chronicity: acute on chronic Qualified Code(s): I50.43 - Acute on chronic combined systolic (congestive) and diastolic (congestive) heart failure (5) COPD (chronic obstructive pulmonary disease) Qualifiers: COPD type: unspecified COPD Qualified Code(s): J44.9 - Chronic obstructive pulmonary disease, unspecified <Parvin Woodward - Last Filed: 04/05/18 17:15> (1) Congestive heart failure Qualifiers: Heart failure type: combined systolic and diastolic Heart failure chronicity: acute on chronic Qualified Code(s): I50.43 - Acute on chronic combined systolic (congestive) and diastolic (congestive) heart failure (2) Pulmonary embolism Qualifiers: Pulmonary embolism type: unspecified Chronicity: acute (5) COPD (chronic obstructive pulmonary disease) Qualifiers: COPD type: unspecified COPD Qualified Code(s): J44.9 - Chronic obstructive pulmonary disease, unspecified
[2018-04-05] MEDS ORDERED: Furosemide 20 MG/2 ML VIAL IVP ONE ×2 (10:43→17:13)
[2018-04-05] MEDS: Insulin LISPRO 300 UNITS/3 ML VIAL SQ SCH ×4 (11:31→21:37)
[2018-04-05] MEDS: Aspirin Enteric Coated 81 MG Tablet PO SCH (11:42)
[2018-04-05] MEDS: Cholecalciferol (D-3) 1,000 UNIT TABLET PO SCH (11:42)
[2018-04-05] MEDS: Furosemide 20 MG TABLET PO SCH (11:42)
[2018-04-05] MEDS: *HR* Rivaroxaban 15 MG TABLET PO SCH ×2 (12:02→16:51)
--- NOTE | 2018-04-05 17:27 | Electrocardiograph Report ---
[place] [id number] Test Date: 2018-04-04 Pat Name: Ratna Diallo Department: 111 Room: 2NE29 Gender: F Full Stack Web Developer: TENA : 1950 Requested By: Escobar Weathers Order Number: [id number] Reading MD: Mandy Hutchinson Measurements Intervals [place] Rate: 98 P: 61 NC: 188 QRS: 26 QRSD: 98 T: 189 QT: 359 QTc: 414 Interpretive Statements SINUS RHYTHM POSSIBLE LEFT ATRIAL ENLARGEMENT LEFT VENTRICULAR HYPERTROPHY AND ST-T CHANGE Electronically Signed On 04-05-2018 17:25:27 EST by Mandy Hutchinson
[2018-04-05] MEDS: Melatonin 3 MG TABLET PO SCH (21:50)
[2018-04-06] MEDS: Pantoprazole 40 MG VIAL IVP SCH (04:51)
[2018-04-06 06:53] VITALS: BP 134/87
[2018-04-06 07:19] LABS: Basophils # 0.1 K/mcL (0.0-0.2); Eosinophils # 0.3 K/mcL (0.0-0.6); Eosinophils % 4.5 %; Hematocrit 29.9 % (35.3-44.9); Immature Granulocytes % 0.3 % (0-4); Lymphocytes # 1.7 K/mcL (0.6-4.6); Lymphocytes % 22.7 %; Mean Corpuscular HGB Conc 30.1 g/dL (31.6-35.5); Mean Corpuscular Hemoglobin 24.7 pg (28.0-33.3); Mean Corpuscular Volume 81.9 fL (83.0-100.0); Mean Platelet Volume 9.3 fL (9.4-12.4); Monocytes % 13.7 %; Neutrophils # 4.2 K/mcL (1.6-8.9); Platelet Count 592 K/mcL (140-400); Red Blood Count 3.65 M/mcL (3.82-4.97); Red Cell Distribution Width 15.8 % (11.5-14.5); Segmented Neutrophils % 57.8 %
[2018-04-06 07:39] LABS: BUN/Creatinine Ratio 15 (6-26); Blood Urea Nitrogen 10 mg/dL (8-23); Calcium 9.3 mg/dL (8.6-10.3); Carbon Dioxide 32 mEq/L (23-29); Chloride 96 mEq/L (98-107); Glucose 122 mg/dL (70-105); Osmolality,Calculated 282 (280-300); Potassium 3.7 mEq/L (3.5-5.1); Sodium 136 mEq/L (136-145); eGFR For Non-African Americans > 60 (> 60)
[2018-04-06] MEDS: Insulin LISPRO 300 UNITS/3 ML VIAL SQ SCH ×2 (08:04→11:36)
[2018-04-06] MEDS: Cholecalciferol (D-3) 1,000 UNIT TABLET PO SCH (08:10)
[2018-04-06] MEDS: Aspirin Enteric Coated 81 MG Tablet PO SCH (08:10)
[2018-04-06] MEDS: Furosemide 20 MG TABLET PO SCH (08:10)
[2018-04-06] MEDS: *HR* Rivaroxaban 15 MG TABLET PO SCH (08:10)
--- NOTE | 2018-04-06 08:42 | Internal Med Progress Note ---
Hospitalist Progress Note - Encounter Date of Encounter: 04/06/18 Time of Encounter: 08:42 - Subjective Interval History: Patient was seen and evaluated the bedside. She reports that she was able to sleep last night. She denies any acute complants or concerns. Nursing staff reports no acute overnight events. - Exam Vitals: Temp Pulse Resp BP Pulse Ox 98 F 94 16 134/87 99 04/06/18 06:52 04/06/18 06:52 04/06/18 06:52 04/06/18 06:52 04/06/18 06:52 - Assessment and Plan (1) Pulmonary embolism Current Visit: Yes Status: Acute (2) Congestive heart failure Current Visit: Yes Status: Acute (3) COPD (chronic obstructive pulmonary disease) Current Visit: Yes Status: Acute (4) Thrombocytosis Current Visit: Yes Status: Acute (5) Hyperglycemia Current Visit: Yes Status: Acute - Time Spent with Patient Total time spent is greater than 50% in coordination of care (as documented) at patient's floor/unit and/or counseling patient: Internal Medicine: Result - Labs CBC & Chem 7: 04/06/18 07:09 04/06/18 07:09 Labs: Short CBC 04/06/18 Range/Units 07:09 WBC 7.3 (4.3-11.1) K/mcL Hgb 9.0 L (11.5-15.4) g/dL Hct 29.9 L (35.3-44.9) % Plt Count 592 H (140-400) K/mcL Neutrophils # 4.2 (1.6-8.9) K/mcL BMP 04/06/18 07:09 Sodium 136 Potassium 3.7 Chloride 96 L Carbon Dioxide 32 H BUN 10 Creatinine 0.66 Glucose 122 H Calcium 9.3 - ABG Interpretation ABG results: PT/INR, D-dimer PT 14.3 Seconds (9.4-12.1) H 04/01/18 19:01 Consult Discharge Plan - Plan Referrals: Funmilayo Plasencia [Primary Care Provider] - (1) Pulmonary embolism Qualifiers: Pulmonary embolism type: unspecified Chronicity: acute (2) Congestive heart failure Qualifiers: Heart failure type: combined systolic and diastolic Heart failure chronicity: acute on chronic Qualified Code(s): I50.43 - Acute on chronic combined systolic (congestive) and diastolic (congestive) heart failure (3) COPD (chronic obstructive pulmonary disease) Qualifiers: COPD type: unspecified COPD Qualified Code(s): J44.9 - Chronic obstructive pulmonary disease, unspecified
--- NOTE | 2018-04-06 08:50 | Discharge Summary ---
<Crista Zaldivar - Last Filed: 04/06/18 14:13> Date of Encounter: 04/06/18 - Discharge Diagnosis (1) Congestive heart failure Status: Acute Qualifiers: Heart failure type: combined systolic and diastolic Heart failure chronicity: acute on chronic Qualified Code(s): I50.43 - Acute on chronic combined systolic (congestive) and diastolic (congestive) heart failure (2) Pulmonary embolism Status: Acute Qualifiers: Pulmonary embolism type: unspecified Chronicity: acute (3) Hyperglycemia Status: Acute (4) Thrombocytosis Status: Acute (5) COPD (chronic obstructive pulmonary disease) Status: Acute Qualifiers: COPD type: unspecified COPD Qualified Code(s): J44.9 - Chronic obstructive pulmonary disease, unspecified Hospital course: Ms. Diallo is a 67 year old female - Time Spent with Patient Total time spent providing and/or coordinating discharge services: Greater than 30 minutes (45 min) - Discharge Medications Home Medications: RX: Atorvastatin Calcium [Lipitor] 80 mg PO HS 12/16/17 [History] RX: Cholecalciferol (D-3) [Vitamin D] 2,000 unit PO DAILY 12/16/17 [History] RX: Duloxetine HCl [Cymbalta] 60 mg PO DAILY 12/16/17 [History] RX: Lisinopril [Zestril] 5 mg PO DAILY 12/16/17 [History] RX: clonazePAM [Klonopin] 1 mg PO HS PRN 12/16/17 [History] RX: Furosemide [Lasix] 20 mg PO DAILY 04/01/18 [History] RX: OxyCODONE/APAP 5/325 [Percocet 5/325 MG] 1 tab PO Q4H PRN 04/01/18 [History] RX: Aspirin Enteric Coated [Aspirin EC] 81 mg PO DAILY 04/02/18 [History] RX: Carvedilol 12.5 mg PO BID 04/02/18 [History] RX: Potassium Chloride [Klor-Con 10] 10 meq PO BID 04/02/18 [History] RX: Rivaroxaban [Xarelto] 15 mg PO BIDWM tablet 04/06/18 [Rx] Allergies/Adverse Reactions: Allergy/AdvReac Type Severity Reaction Status Date / Time morphine AdvReac Unknown See Verified 04/02/18 13:00 Comments gabapentin AdvReac See Verified 04/02/18 13:00 Comments Date of admission: 04/01/18 17:01 Primary care physician: Funmilayo Plasencia Consults: 04/06/18 08:33 Consult to Nurse Navigator [CONS] Routine Comment: Mild CHF exac Discharging clinician: Darcy Argueta - Constitutional Vitals: Temp Pulse Resp BP Pulse Ox 98 F 94 16 134/87 92 04/06/18 06:52 04/06/18 06:52 04/06/18 06:52 04/06/18 06:52 04/06/18 10:33 - Patient Status Disposition: Home Health Service Condition: Good - Ambulatory Orders Ambulatory Orders: Basic Metabolic Panel [CHEM] Time Frame: 1 Week, Location: Determined By Patient - Discharge Instructions Instructions: Heart Failure (DC), Pulmonary Embolism (DC), Acute Respiratory Distress Syndrome (DC), Chronic Obstructive Pulmonary Disease (DC), Ischemic Stroke (DC), Anemia (GEN), Pneumonia (DC) Follow Up With: Funmilayo Plasencia [Primary Care Provider] - Dari Nix MD [Partnered Physician] - Additional Instructions: Follow up with your PCP in 3-5 days. Follow up with cardiothoracic surgery as directed. Continue taking xarelto 15mg twice daily for 3 weeks. Continue taking lasix 20mg daily. Continue taking home medications. Have a repeat BMP drawn in 1 week and follow up with your PCP regarding the results. Use oxygen overnight as directed. Return to the emergency department if symptoms recur or worsen, or if new concerns arise. - Attending Attestation I examined this patient and my medical decision-making was reviewed with the Resident Physician Dr Argueta. I agree with the documented findings, disposition and treatment plan as described except to the extent set forth below. Ms Diallo was admitted with acute resp failure 2/2 PE. Awake, No cp, pressure, palpitations. No sob, cough or wheezing. very eager for dc to home. gen- alert, awake,appears stated age eyes- pupils equal round cv- reg rate and rhythm, normal s1,s2, no murmurs appreciated, no le edema lungs- ctabl, no wheezing, rhonchi or crackles appreciated,normal resp effort on ra neuro- AAOx3 PE- cont xarelto CT surg was contacted and made aware of PE, rec is to dc home plavix and cont asa + xarelto Stable chronic systolic CHF CAD s/p CABG - cont home med regimen on dc including her home lasix,asa, statin, BB, acei, fu with CT surg/cards/pcp Incidental findings this admission included: thrombocytosis, thyroid nodule and prediabetes- these findings were discussed with the pt in detail prir to dc with rec for outpt pcp fu for further monitoring of platelets, outpt work up of thyroid nodule and repeat a1c in 3 months with diet/lifestyle change education provided further diagnoses and plan as noted by resident dc to home with [facility] time spent on dc 45 min <[place],Darcy N - Last Filed: 04/06/18 20:02> - NOTES TO OUTPATIENT PROVIDER Notes to Outpatient Provider: Patient presented with an acute PE and was treated with a heparin gtt and transitioned to anticoagulation with xarelto prior to discharge. She was provided with a handwritten prescription prior to discharge for a starter pack, with instructions to follow up with CT surg and her PCP for further anticoagulation. Patient needs outpatient followup for thyroid nodule found incidentally during this admission. She was also found to be prediabetic, with hemoglobin A1c of 6.4. Date of Encounter: 04/06/18 Time of Encounter: 08:50 - Discharge Diagnosis (1) Pulmonary embolism Priority: Primary Status: Acute Qualifiers: Pulmonary embolism type: unspecified Chronicity: acute (2) Congestive heart failure Priority: Secondary Status: Acute Qualifiers: Heart failure type: combined systolic and diastolic Heart failure chronicity: acute on chronic Qualified Code(s): I50.43 - Acute on chronic combined systolic (congestive) and diastolic (congestive) heart failure (3) COPD (chronic obstructive pulmonary disease) Priority: Secondary Status: Acute Qualifiers: COPD type: unspecified COPD Qualified Code(s): J44.9 - Chronic obstructive pulmonary disease, unspecified (4) Thrombocytosis Priority: Secondary Status: Acute (5) Hyperglycemia Priority: Secondary Status: Acute Hospital course: Ms. Diallo is a 67 year old female who presented to the ED on 04/01 due to acute onset of shortness of breath. She was found to have a right lower lobe PE on CTA. She was started on a heparin gtt. At the time of admission, she was also noted to have an elevated BNP, and was treated for an acute CHF exacerbation as well. Findings of hospital workup are as follows: - Lower extremity Doppler reports no DVT; however, SVT was found in right GSV. - Repeat echocardiogram performed on 04/02/2018 demonstrated the following; LVEF 40%, and normal left ventricle chamber size and wall thickness, global left ventricle systolic dysfunction, atypical septal motion consistent with postoperative status, moderate left ventricular diastolic dysfunction, normal right ventricular structure with mildly reduced function, mildmoderate tricuspid regurgitation, and borderline mild pulmonary hypertension. - Pathologist's interpretation of peripheral smear performed due to thrombocytosis is as follows: Normocytic anemia with increased anisopoikilocytosis with elliptocytes and rare acanthocytes and occasional target cells rule out iron deficiency and liver disesae. Thrombocytosis which may be reactive and could be secondary to inflammatory process or infection or iron deficiency. Differential diagnosis includes possibility of myeloprolife rative process. Patient was also found to have an incidental thyroid nodule and hyperglycemia during this admission, for which outpatient followup is recommended. Patient improved symptomatically with lasix and supportive oxygen. She was transitioned from heparin gtt to xarelto, with a written prescription provided prior to hospital discharge. On day of discharge, patient reported feeling well and reported no acute complaints or concerns. Home health was arranged prior to discharge. Discharge discussed with: patient, family, nurse - Time Spent with Patient Total time spent providing and/or coordinating discharge services: Date of admission: 04/01/18 17:01 Primary care physician: Funmilayo Plasencia Consults: 04/06/18 08:33 Consult to Nurse Navigator [CONS] Routine Comment: Mild CHF exac Anticipated date of discharge: 04/06/18 - Constitutional Vitals: Temp Pulse Resp BP Pulse Ox 98 F 94 16 134/87 99 04/06/18 06:52 04/06/18 06:52 04/06/18 06:52 04/06/18 06:52 04/06/18 06:52 Exam: GENERAL: Pleasant adult female resting comfortably. She does not appear to be in acute distress. HEENT: Atraumatic and normocephalic. Nasal canula in place. CARDIOVASCULAR: Regular rate and rhythm. S1 and S2 present. No murmurs, gallops, or rubs appreciated. RESPIRATORY: Diffusely decreased bilaterally, without any overt wheezes noted. Patient does not appear to have increased work of breathing, and is not using accessory muscles. GASTROINTESTINAL: Abdomen is soft, nontender, and nondistended. EXTREMITIES: No clubbing, cyanosis, or pitting edema present. Ecchymoses present in bilateral lower extremities, with greater bruising on the right secondary to recent cardiovascular procedure. SKIN: Warm, dry, and intact. PSYCHIATRIC: Appropriate mood and affect. NEUROLOGIC: Patient answers questions appropriately and is cooperative with exam. No apparent focal deficits. - Patient Status Overall status at discharge: patient is progressing back to baseline - Diet and Activity Activity: as per physical therapy, wear oxygen at night Diet: diabetic diet
--- NOTE | 2018-04-06 12:20 | Physician Discharge Referral ---
<Darcy Argueta N - Last Filed: 04/06/18 12:14> Home Health/Hosp Referral Info Transfer to: Home Health Attending Provider: Dr. Jason Provider in Charge Post Discharge: PCP - Diagnosis (1) Pulmonary embolism Priority: Primary Status: Acute (2) Congestive heart failure Priority: Secondary Status: Acute (3) COPD (chronic obstructive pulmonary disease) Priority: Secondary Status: Acute (4) Thrombocytosis Priority: Secondary Status: Acute (5) Hyperglycemia Priority: Secondary Status: Acute - Respiratory Orders Smoking Cessation: Smoking cessation has been advised. For more information, call the [place] Tobacco Quit Line at 6-846-VFDZ-NOW. - Diet/Nutrition Diet/Nutrition Orders: Cardiac - Services Needed Following services are medically necessary services: Nursing, Home Health Aide, Physical Therapy, Occupational Therapy, Med Social Work - Transfer Medications Home Medications: Atorvastatin Calcium [Lipitor] 80 mg PO HS 12/16/17 [History] Cholecalciferol (D-3) [Vitamin D] 2,000 unit PO DAILY 12/16/17 [History] Duloxetine HCl [Cymbalta] 60 mg PO DAILY 12/16/17 [History] Lisinopril [Zestril] 5 mg PO DAILY 12/16/17 [History] clonazePAM [Klonopin] 1 mg PO HS PRN 12/16/17 [History] Furosemide [Lasix] 20 mg PO DAILY 04/01/18 [History] OxyCODONE/APAP 5/325 [Percocet 5/325 MG] 1 tab PO Q4H PRN 04/01/18 [History] Aspirin Enteric Coated [Aspirin EC] 81 mg PO DAILY 04/02/18 [History] Carvedilol 12.5 mg PO BID 04/02/18 [History] Potassium Chloride [Klor-Con 10] 10 meq PO BID 04/02/18 [History] Rivaroxaban [Xarelto] 15 mg PO BIDWM tablet 04/06/18 [Rx] Allergies/Adverse Reactions: Allergy/AdvReac Type Severity Reaction Status Date / Time morphine AdvReac Unknown See Verified 04/02/18 13:00 Comments gabapentin AdvReac See Verified 04/02/18 13:00 Comments Certification: Further, I certify that my clinical findings support that this patient is homebound (i.e. absences from home require considerable and taxing effort and are for medical reasons or islam services or infrequently or short duration when for other reasons) because: Homebound Reason: Patient requires assistance of a person or device to safely leave home, Post-surgery restriction and or conditions limit ability to leave home Attestation: My signature below is to certify that this patient is under my care and that I, or nurse practitioner, or a physician's administrative assistant office manager working with me, has a [id number] encounter with this patient. <Crista Zaldivar - Last Filed: 04/06/18 12:54> - Diagnosis (1) COPD (chronic obstructive pulmonary disease) Status: Acute (2) Congestive heart failure Status: Acute (3) Elevated troponin Priority: Secondary Status: Acute (4) Hx of CABG Status: Acute (5) Hyperglycemia Status: Acute (6) Pulmonary embolism Status: Acute (7) Thrombocytosis Status: Acute (8) Thyroid nodule Priority: Secondary Status: Acute - Respiratory Orders Smoking Cessation: Smoking cessation has been advised. For more information, call the [place] Tobacco Quit Line at 1-848-LJWH-NOW. - Diet/Nutrition Diet/Nutrition Orders: No Concentrated Sweets - Activity Activity Orders: Up ad nabil Certification: Further, I certify that my clinical findings support that this patient is homebound (i.e. absences from home require considerable and taxing effort and are for medical reasons or islam services or infrequently or short duration when for other reasons) because: Attestation: My signature below is to certify that this patient is under my care and that I, or nurse practitioner, or a physician's administrative assistant office manager working with me, has a [id number] encounter with this patient.
== END 2018-04-06 13:23 | disposition home health service (06) | DRG 175 ==
LOC: 2NENU → SUATTDRO 17:01
PROVIDERS: ADMIT Hospitalist; ATTEND Internal Medicine

== ENCOUNTER 2018-07-24 22:09 | Observation (INO) ==
[2018-07-25] MEDS ORDERED: Acetaminophen 325 MG TABLET PO PRN (03:03)
[2018-07-25] MEDS ORDERED: Ondansetron 4 MG/2 ML VIAL IVP PRN (03:03)
[2018-07-25] MEDS ORDERED: Naloxone 0.4 MG/ML INJ IVP PRN (03:03)
[2018-07-25] MEDS ORDERED: Nitroglycerin 0.4 MG TAB.SUBL SL PRN (03:09)
--- NOTE | 2018-07-25 03:26 | Internal Med History&Physical ---
Date of Encounter: 07/25/18 Time of Encounter: 01:00 Internal Medicine - H&P: HPI Chief complaint: CP; SOB Admitted From: Hospital to Hospital Transfer Plans for Post Hospital Care: Home History of present illness: Ms. Diallo is a 68 year old female who presents in transfer to [facility] from [facility]. She presented there this evening with complaint of chest pain, shortness of breath, orthopnea, and peripheral edema. Symptoms started over last 12-24 hrs. She was hopeful that they would resolve and that she could follow-up with PCP tomorrow. However, symptoms worsened and she went to the ER for evaluation. Workup at the ER in [facility] revealed the patient to have findings concerning for CHF. Because of her chest pain, known coronary disease, and recent history of CABG, she was transferred to [facility] for further workup and care. Upon my assessment of the patient, she is chest pain-free. She still has some mild dyspnea and orthopnea. She denies any fevers, cough, congestion, or wheezing. She does have prior history of PE diagnosed in March of this year. She is on Xarelto and has not missed any doses of Xarelto. She has prior history of breast cancer. Regarding her coronary artery disease, since her CABG, she was doing very well and has had no symptoms until tonight. She denies any asymmetrical swelling of her legs. She has had bilateral edema of her legs and increasing abdominal girth as well. Past Med Surg Social Fam HX - Past Medical History Attestation: Yes The following information was validated with the patient. Source: patient, old records reviewed, other ([facility] records) Medical history: arthritis, cancer, COPD, coronary artery disease, CVA, hyperlipidemia, hypertension Additional medical history: Breast CA (2007,2013) Right side mastectomy (breast reconstruction) , left side lymphectomy Psychiatric history: anxiety, depression - Past Surgical History Surgical History: appendectomy, breast surgery, hysterectomy, orthopedic, other, other Additional surgical history: leg sx; cyst removal from left posterior leg - Social History Smoking Status: Former smoker Smokeless Tobacco Status: No Alcohol use: none Drug use: none Current living situation: Home, With Family Activity Level: Independent ambulation Recent Out of Country Travel Within the Last 8 Weeks: No - Family History Father Living Status: Hx Family Cancer: Yes (prostate) Hx Family Musculoskeletal Disorders: Yes (osteoporosis) Mother Living Status: Hx Family Cancer: Yes (prostate) Sister Hx Family Cardiac Disorders: Yes (afib) Hx Family Neuromuscular Disorders: Yes (stroke) Internal Medicine - H&P: Meds Atorvastatin Calcium [Lipitor] 80 mg PO HS 12/16/17 [History] Cholecalciferol (D-3) [Vitamin D] 2,000 unit PO DAILY 12/16/17 [History] Duloxetine HCl [Cymbalta] 60 mg PO DAILY 12/16/17 [History] Furosemide [Lasix] 20 mg PO DAILY 04/01/18 [History] Aspirin Enteric Coated [Aspirin EC] 81 mg PO DAILY 04/02/18 [History] Carvedilol 12.5 mg PO BID 04/02/18 [History] Potassium Chloride [Klor-Con 10] 10 meq PO BID 04/02/18 [History] Cyanocobalamin (Vitamin B-12) [Vitamin B12] 1,000 mcg PO DAILY 06/15/18 [History] Ferrous Sulfate [Iron] 325 mg PO DAILY 06/15/18 [History] Rivaroxaban [Xarelto] 20 mg PO DAILY 06/15/18 [History] Tizanidine HCl [Zanaflex] 2 mg PO HS 06/15/18 [History] Allergy/AdvReac Type Severity Reaction Status Date / Time morphine AdvReac Unknown See Verified 07/13/18 11:07 Comments gabapentin AdvReac See Verified 07/13/18 11:07 Comments - Constitutional Constitutional: no chills, no fever(s), no night sweats - EENT Eyes: no blurry vision, no change in vision Ears: no ear pain, no tinnitus Nose, mouth and throat: no nasal congestion, no sinus pressure, no sore throat - Cardiovascular Cardiovascular ROS IM: chest pain, dyspnea, dyspnea on exertion, edema, orthopnea, paroxysmal nocturnal dyspnea, no irregular heart rhythm, no syncope - Respiratory Respiratory: no cough, no hemoptysis, no chest congestion, no change in phlegm color, no pain with cough - Gastrointestinal Gastrointestinal: bloating, no abdominal pain, no diarrhea, no hematemesis, no hematochezia, no melena, no nausea, no vomiting - Genitourinary Genitourinary: no dysuria, no flank pain, no hematuria - Musculoskeletal Musculoskeletal ROS IM: no arthralgias, no back pain - Integumentary Integumentary IM: no rash, no jaundice - Neurological Neurological ROS: no dizziness, no focal weakness, no frequent falls, no headache(s) - Psychiatric Psychiatric: no anxiety, no depression - Endocrine Endocrine IM: no cold intolerance, no heat intolerance, no polydipsia, no polyphagia, no polyuria - Allergic/Immunologic Allergic/Immunologic: no GI upset with certain foods - Constitutional Vitals: Temp Pulse Resp BP Pulse Ox 97.9 F 67 16 147/79 94 07/25/18 00:18 07/25/18 00:18 07/25/18 00:18 07/25/18 00:18 07/25/18 00:18 General appearance: Present: cooperative, A&O X 3, pleasant, answers questions appropriately Exam: see below - Head Head exam: Present: atraumatic, normal inspection - Eye Eye exam: Present: EOMI, PERRL. Absent: scleral icterus Pupils: Present: normal accommodation - ENT ENT exam: Present: mucous membranes dry, normal exam, normal oropharynx - Neck Neck exam general surgery: Present: full ROM, supple, trachea midline. Absent: tenderness, nuchal rigidity, thyromegaly - Respiratory Respiratory exam: Present: CTAB. Absent: chest wall tenderness, rales, rhonchi, wheezes - Cardiovascular Cardiovascular exam: Present: RRR, +S1, +S2. Absent: diastolic murmur, systolic murmur Additional comments: sternotomy scar well healed and without sign of infection - GI/Abdominal GI/Abdominal exam: Present: normal bowel sounds, soft. Absent: hepatomegaly, mass, splenomegaly, tenderness - Extremities Exam Extremities exam: Present: full ROM, normal capillary refill, warm, radial pulses palpable and symmetrical. Absent: calf tenderness, joint swelling, pedal edema, tenderness - Back Exam Back exam: Absent: CVA tenderness (L), CVA tenderness (R) - Neurological Exam Neurological exam: Present: alert, CN II-XII intact, oriented X3, strengths equal and symetr throughout - Psychiatric Psychiatric exam: Present: normal affect, normal mood - Skin Skin exam: Present: dry, intact, warm Internal Med - H&P Results - Labs Labs: I reviewed her labs from [facility] and include the following: WBC 6.4 Hemoglobin 10.0 Hematocrit 33.2 Alerts 308 Sodium 141 Potassium 4.3 Chloride 103 Carbon dioxide 29 BUN 17 Glucose 104 Creatinine 0.85 ProBNP 1587 Troponin within normal limits EKG suggests lateral wall ischemia with flipped T waves and ST depression in the inferolateral leads. I do not see any x-ray imaging and/or report. - Assessment and Plan (1) Chest pain Current Visit: Yes Status: Acute Assessment and plan: 1. Trend troponins, EKG's, and order limited ECHO to assess LVEF/function. 2. Consult cardiology given recent CABG and known CAD. 3. Clinically, she does not appear to be in CHF. 4. Monitor fluid balance and for developing signs of CHF. Qualifiers: Chest pain type: precordial pain Qualified Code(s): R07.2 - Precordial pain (2) Pulmonary embolism Current Visit: Yes Status: Chronic Assessment and plan: 1. Will order D-Dimer; if abnormal, she will need CTA chest and BLE Dopplers. 2. Continue Xarelto per home dosing. Qualifiers: Pulmonary embolism type: other Chronicity: chronic Acute cor pulmonale presence: without acute cor pulmonale Qualified Code(s): I27.82 - Chronic pulmonary embolism (3) DVT prophylaxis Current Visit: Yes Status: Acute Assessment and plan: 1. Xarelto per home dosing.
[2018-07-25 04:28] LABS: Basophils # 0.1 K/mcL (0.0-0.2); Basophils % 0.9 %; Eosinophils # 0.2 K/mcL (0.0-0.6); Eosinophils % 3.5 %; Hematocrit 33.2 % (35.3-44.9); Hemoglobin 10.1 g/dL (11.5-15.4); Immature Granulocytes % 0.1 % (0-4); Lymphocytes # 2.8 K/mcL (0.6-4.6); Lymphocytes % 41.4 %; Mean Corpuscular HGB Conc 30.4 g/dL (31.6-35.5); Mean Corpuscular Hemoglobin 26.9 pg (28.0-33.3); Mean Corpuscular Volume 88.3 fL (83.0-100.0); Mean Platelet Volume 9.5 fL (9.4-12.4); Monocytes # 0.6 K/mcL (0.0-1.3); Monocytes % 8.3 %; Neutrophils # 3.1 K/mcL (1.6-8.9); Platelet Count 324 K/mcL (140-400); Red Blood Count 3.76 M/mcL (3.82-4.97); Segmented Neutrophils % 45.8 %
[2018-07-25 04:36] LABS: INR 1.1; Prothrombin Time 12.1 Seconds (9.4-12.1)
[2018-07-25 04:38] LABS: Activated Partial Thrombo Time 33.1 Seconds (26.0-36.0)
[2018-07-25 04:51] LABS: Alanine Aminotransferase 11 Units/L (7-52); Albumin 4.3 g/dL (3.5-5.7); Albumin/Globulin Ratio 1.9 (1.1-2.2); Alkaline Phosphatase 116 Units/L (34-104); Aspartate Amino Transferase 14 Units/L (13-39); BUN/Creatinine Ratio 21 (6-26); Bilirubin,Total 0.3 mg/dL (0.3-1.0); Blood Urea Nitrogen 16 mg/dL (8-23); Calcium 9.6 mg/dL (8.6-10.3); Carbon Dioxide 28 mEq/L (23-29); Chloride 103 mEq/L (98-107); Chol/HDL Ratio 2.1 (0-4.9); Cholesterol 151 mg/dL (< 200); Globulin 2.3 g/dL (2.4-3.5); Glucose 116 mg/dL (70-105); HDL Cholesterol 73 mg/dL (40-59); LDL Cholesterol,Calculated 66 mg/dL (0-99); Magnesium 2.1 mg/dL (1.6-2.6); Osmolality,Calculated 292 (280-300); Potassium 3.5 mEq/L (3.5-5.1); Sodium 140 mEq/L (136-145); Total Protein 6.6 g/dL (6.4-8.9); Triglycerides 59 mg/dL (< 150); eGFR For Non-African Americans > 60 (> 60)
[2018-07-25] MEDS ORDERED: Aspirin Enteric Coated 81 MG Tablet PO SCH (09:00)
[2018-07-25] MEDS ORDERED: Cholecalciferol (D-3) 1,000 UNIT TABLET PO SCH (09:00)
[2018-07-25] MEDS ORDERED: Furosemide 20 MG TABLET PO SCH (09:00)
[2018-07-25] MEDS ORDERED: Cyanocobalamin (B-12) 1,000 MCG TABLET PO SCH (09:00)
[2018-07-25] MEDS ORDERED: *HR* Rivaroxaban 10 MG TABLET PO SCH (09:00)
[2018-07-25 10:53] VITALS: BP 133/78
--- NOTE | 2018-07-25 11:11 | Cardiology Consult Note ---
Date of Encounter: 07/25/18 Time of Encounter: 10:00 Assessment and Plan (1) Chest pain Current Visit: Yes Status: Acute -Patient presents from [facility] because of concerns for brief chest pain. -Patient has not had any episode of chest pain ever since she has been at [facility] -Troponins were negative. -EKG was negative for any ST-T changes, heart strain/ block, HOCM, LVH, Brugada or WPW. She had some T wave inversions in leads V5 and V6 which were unchanged from previous EKG. -Patient has a history of CABG on 03/20/18. -Most recent echo showed an EF of 40% with the moderate left ventricular diastolic dysfunction with regional variations -Patient currently on Coreg 12.5 mg twice a day for her anti-anginal coverage. PLAN: - We will add long-acting nitrate for further anginal coverage - Imdur 30 mg -She needs to follow-up as an outpatient with cardiology -Continue aspirin, Coreg, statins. Qualifiers: Chest pain type: precordial pain Qualified Code(s): R07.2 - Precordial pain (2) Congestive heart failure Current Visit: No Status: Chronic -Patient has a history of CHF. -Most recent Echo from 04/02/2018 showed LVEF: 40% with moderate left ventricular diastolic dysfunction - on physical exam she has no pedal edema, no JVD or S3 sounds appreciated - Strict Is/Os, daily weight checks, Restrict fluid intake to < 1.5L /daily - Continue home Lasix 20 mg -Repeat Echo pending Qualifiers: Heart failure type: combined systolic and diastolic Heart failure chronicity: acute on chronic Qualified Code(s): I50.43 - Acute on chronic combined systolic (congestive) and diastolic (congestive) heart failure (3) Pulmonary embolism Current Visit: No Status: Acute -She has a history of right lower lobe pulmonary embolism -Continue on Xarelto for AC Qualifiers: Pulmonary embolism type: unspecified Chronicity: acute Qualified Code(s): I26.99 - Other pulmonary embolism without acute cor pulmonale Discussion w patient/family: The assessment and plan as outlined above was discussed with the patient and/or family members who expressed understanding and agreement. All questions were answered. Thank you for involving us in the care of your patient. Please call with any questions. History of Present Illness Consult date: 07/25/18 History of present illness: Ms. Diallo is a 68 year old female with past medical history of CABG (04/02) , HF, PE (on xarelto), hypertension, hyperlipidemia, breast cancer status post mastectomy and left nephrectomy, multiple CVAs, COPD who presents from the [facility] because of shortness of breath and non-radiating chest pain that started yesterday afternoon. Patient endorses that the chest pain began when she was sitting on the couch. Patient describes the chest pain as a dull pain which was non-radiating in nature with no nausea or diaphoresis. She also endorses that the chest pain lasted for 5 minutes. Initial workup in the ER at [facility] showed that patient had some concerning findings for CHF. Patient's troponins were negative on admission. She was transferred to [facility] because of concerns for acute chest pain, history of CABG, CAD and CHF. Upon my assessment the patient, she was chest pain-free. Patient had no pitting edema, lung sounds were clear to auscultation bilaterally, no evidence of JVD or S3. Past Med Surg Social Fam HX - Past Medical History Medical history: arthritis, cancer, COPD, coronary artery disease, CVA, hyperlipidemia, hypertension Additional medical history: Breast CA (2007,2013) Right side mastectomy (breast reconstruction) , left side lymphectomy Psychiatric history: anxiety, depression - Past Surgical History Surgical History: appendectomy, breast surgery, hysterectomy, orthopedic, other, other Additional surgical history: leg sx; cyst removal from left posterior leg - Social History Smoking Status: Former smoker Smokeless Tobacco Status: No Alcohol use: none Drug use: none - Family History Father Living Status: Hx Family Cancer: Yes (prostate) Hx Family Musculoskeletal Disorders: Yes (osteoporosis) Mother Living Status: Hx Family Cancer: Yes (prostate) Sister Hx Family Cardiac Disorders: Yes (afib) Hx Family Neuromuscular Disorders: Yes (stroke) Medications and Allergies Atorvastatin Calcium [Lipitor] 80 mg PO HS 12/16/17 [History] Cholecalciferol (D-3) [Vitamin D] 1,000 unit PO DAILY 12/16/17 [History] Duloxetine HCl [Cymbalta] 60 mg PO HS 12/16/17 [History] Furosemide [Lasix] 20 mg PO DAILY 04/01/18 [History] Carvedilol 12.5 mg PO BID 04/02/18 [History] Potassium Chloride [Klor-Con 10] 10 meq PO BID 04/02/18 [History] Cyanocobalamin (Vitamin B-12) [Vitamin B12] 1,000 mcg PO DAILY 06/15/18 [History] Ferrous Sulfate [Iron] 325 mg PO DAILY 06/15/18 [History] Albuterol Neb [Proventil Neb] 2.5 mg IH TID PRN 07/25/18 [History] Aspirin Enteric Coated [Aspirin EC] 81 mg PO DAILY 07/25/18 [History] Isosorbide MONOnitrate (24 HR) [Imdur] 30 mg PO DAILY #30 tab.er.24h 07/25/18 [Rx] Rivaroxaban [Xarelto] 20 mg PO QAM 07/25/18 [History] Tizanidine HCl 2 mg PO HS PRN 07/25/18 [History] Trazodone HCl 50 mg PO HS 07/25/18 [History] Allergy/AdvReac Type Severity Reaction Status Date / Time morphine AdvReac Unknown See Verified 07/25/18 11:21 Comments gabapentin AdvReac See Verified 07/25/18 11:21 Comments All Systems Review: The remainder of the systems were reviewed and are negative - Constitutional Constitutional: no chills, no fever(s) - Cardiovascular Cardiovascular: chest pain at rest - Respiratory Respiratory: dyspnea - Gastrointestinal Gastrointestinal: no abdominal pain - Genitourinary Genitourinary: no dysuria Physical Examination Vital Signs, Last 4 Hours Temp Pulse Resp BP Pulse Ox 07/25/18 10:52 98.1 F 66 17 133/78 95 07/25/18 08:19 97.3 F L 66 18 116/68 93 Other: CONSTITUTIONAL: patient appears as an age appropriate female in no acute distress. RESPIRATORY: CTAB, no accessory muscle use. CARDIOVASCULAR: Regular heart rate, normal S1 and S2, no murmurs, well healed sternotomy scar. GASTROINTESTINAL: bowel sounds present, soft, no tenderness. MUSCULOSKELETAL: Joints in normal range of motion, no clubbing, no edema, no cyanosis. no pedal edema NEUROLOGIC: CN II to XII are grossly intact, no focal neurological deficit. Results 07/25/18 03:55 07/25/18 03:55 Lab Results 05/07/25/18 07/25/18 03:55 03:55 03:55 WBC 6.8 Hgb 10.1 L Hct 33.2 L Plt Count 324 INR 1.1 APTT 33.1 D-Dimer 373 Sodium Potassium Chloride Carbon Dioxide BUN Creatinine Glucose Calcium Magnesium Total Bilirubin AST ALT Alkaline Phosphatase Troponin I < 0.03 07/25/18 07/25/18 03:55 09:17 WBC Hgb Hct Plt Count INR APTT D-Dimer Sodium 140 Potassium 3.5 Chloride 103 Carbon Dioxide 28 BUN 16 Creatinine 0.78 Glucose 116 H Calcium 9.6 Magnesium 2.1 Total Bilirubin 0.3 AST 14 ALT 11 Alkaline Phosphatase 116 H Troponin I < 0.03 Consult Discharge Plan - Plan Referrals: Nestor Herr MD [Partnered Physician] - NONE,PCP [Primary Care Provider] - Prescriptions: Isosorbide MONOnitrate (24 HR) [Imdur] 30 mg PO DAILY #30 tab.er.24h
[2018-07-25] MEDS ORDERED: Isosorbide MONOnitrate (24 HR) 30 MG TAB.ER.24H PO SCH (11:15)
--- NOTE | 2018-07-25 13:02 | Discharge Summary ---
- NOTES TO OUTPATIENT PROVIDER Notes to Outpatient Provider: f/u with PCP in one week. f/u with Cardiology in 1-2 weeks. Please start taking Imdur 30mg PO Daily. Please check daily weights, if you gain more than 2 lbs take an extra dose of Lasix and call your PCP / Emergency Department Aide. Orders not resulted at time of discharge: Pending orders 07/25/18 03:03 ECG 12 lead ECG [ECG] Routine 07/25/18 15:15 Troponin I Q6H Date of Encounter: 07/25/18 Time of Encounter: 12:41 - Discharge Diagnosis (1) Chest pain Priority: Primary Status: Acute Qualifiers: Chest pain type: precordial pain Qualified Code(s): R07.2 - Precordial pain (2) Pulmonary embolism Priority: Secondary Status: Chronic Qualifiers: Pulmonary embolism type: other Chronicity: chronic Acute cor pulmonale presence: without acute cor pulmonale Qualified Code(s): I27.82 - Chronic pulmonary embolism (3) COPD (chronic obstructive pulmonary disease) Priority: Secondary Status: Chronic Qualifiers: COPD type: unspecified COPD Qualified Code(s): J44.9 - Chronic obstructive pulmonary disease, unspecified (4) Congestive heart failure Priority: Secondary Status: Chronic Qualifiers: Heart failure type: combined systolic and diastolic Heart failure chronicity: acute on chronic Qualified Code(s): I50.43 - Acute on chronic combined systolic (congestive) and diastolic (congestive) heart failure (5) Hx of CABG Priority: Secondary Status: Acute (6) Hyperlipidemia Priority: Secondary Status: Chronic Qualifiers: Hyperlipidemia type: unspecified Qualified Code(s): E78.5 - Hyperlipidemia, unspecified (7) Hypertension Priority: Secondary Status: Chronic Qualifiers: Hypertension type: essential hypertension Qualified Code(s): I10 - Essential (primary) hypertension (8) DVT prophylaxis Priority: Secondary Status: Acute Hospital course: Ms. Diallo is a 68 year old female with known PMH of HTN, HLD, COPD, CVA and CAD recent s/p CABG pt presented in transfer to [facility] from [facility]. She presented there with complaint of chest pain, shortness of breath, orthopnea, and peripheral edema. Symptoms started over last 12-24 hrs. She was hopeful that they would resolve and that she could follow-up with PCP tomorrow. However, symptoms worsened and she went to the ER for evaluation. Workup at the ER in [facility] revealed the patient to have findings concerning for CHF. Because of her chest pain, known coronary disease, and recent history of CABG, she was transferred to [facility] for further workup and care. 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 She was given IV Lasix x 1 dose. Her serial troponin x 3 were negative. No acute EKG changes noticed. Pt denied any more CP / SOB. Her 2 D Echo showed LVEF 45 % slightly improved. No wall motion / septal abnormlaities noticed. Her D-Dimer was WNL too, no need of further work up Pt was evaluated by federal mediator who recommend to start her on Imdur and continue same home dose of Lasix. - Time Spent with Patient Total time spent providing and/or coordinating discharge services: Time spent: D/C greater than 8 hours after Admission (I did provide [id number] service to this patient more than 8 hours apart since patient got admitted in the hospital by my colleague) - Discharge Medications Prescriptions: New Isosorbide MONOnitrate (24 HR) [Imdur] 30 mg PO DAILY #30 tab.er.24h Continued Cholecalciferol (D-3) [Vitamin D] 1,000 unit PO DAILY Atorvastatin Calcium [Lipitor] 80 mg PO HS Duloxetine HCl [Cymbalta] 60 mg PO HS Furosemide [Lasix] 20 mg PO DAILY Carvedilol 12.5 mg PO BID Potassium Chloride [Klor-Con 10] 10 meq PO BID Ferrous Sulfate [Iron] 325 mg PO DAILY Cyanocobalamin (Vitamin B-12) [Vitamin B12] 1,000 mcg PO DAILY Albuterol Neb [Proventil Neb] 2.5 mg IH TID PRN PRN Reason: Shortness Of Breath Aspirin Enteric Coated [Aspirin EC] 81 mg PO DAILY Rivaroxaban [Xarelto] 20 mg PO QAM Tizanidine HCl 2 mg PO HS PRN PRN Reason: Muscle Spasm Trazodone HCl 50 mg PO HS Home Medications: Atorvastatin Calcium [Lipitor] 80 mg PO HS 12/16/17 [History] Cholecalciferol (D-3) [Vitamin D] 1,000 unit PO DAILY 10/04/18 [History] Duloxetine HCl [Cymbalta] 60 mg PO HS 12/16/17 [History] Furosemide [Lasix] 20 mg PO DAILY 04/01/18 [History] Carvedilol 12.5 mg PO BID 04/02/18 [History] Potassium Chloride [Klor-Con 10] 10 meq PO BID 04/02/18 [History] Cyanocobalamin (Vitamin B-12) [Vitamin B12] 1,000 mcg PO DAILY 06/15/18 [History] Ferrous Sulfate [Iron] 325 mg PO DAILY 06/15/18 [History] Albuterol Neb [Proventil Neb] 2.5 mg IH TID PRN 07/25/18 [History] Aspirin Enteric Coated [Aspirin EC] 81 mg PO DAILY 07/25/18 [History] Isosorbide MONOnitrate (24 HR) [Imdur] 30 mg PO DAILY #30 tab.er.24h 07/25/18 [Rx] Rivaroxaban [Xarelto] 20 mg PO QAM 07/25/18 [History] Tizanidine HCl 2 mg PO HS PRN 07/25/18 [History] Trazodone HCl 50 mg PO HS 07/25/18 [History] Allergies/Adverse Reactions: Allergy/AdvReac Type Severity Reaction Status Date / Time morphine AdvReac Unknown See Verified 07/25/18 11:21 Comments gabapentin AdvReac See Verified 07/25/18 11:21 Comments Date of admission: 07/24/18 23:51 Primary care physician: PCP NONE Consults: 07/25/18 03:03 Consult to Cardiology [CONS] Routine Comment: Consulting Provider: Cardiology Carlota Reason for Consult: recurrent chest pain after recent CABG Call Completed: No - Constitutional Vitals: Temp Pulse Resp BP Pulse Ox 98.1 F 66 17 133/78 95 07/25/18 10:52 07/25/18 10:52 07/25/18 10:52 07/25/18 10:52 07/25/18 10:52 General appearance: Present: cooperative, A&O X 3, pleasant, answers questions appropriately Exam: Gen: Alert, awake, Oriented to time,place and person Chest: Diminished breath sounds B/L, No wheezing, No crackles, No rales Heart: S1S2+ RRR No murmurs Abd: Soft, NT, BS +, No organomegaly Ext: no edema, pulses are palpable, No calf tenderness Neuro : Benign findings Skin: No rash. - Patient Status Disposition: Home, Self-Care Condition: Good Overall status at discharge: patient is back to baseline - Discharge Instructions Follow Up With: NONE,PCP [Primary Care Provider] - Nestor Herr MD [Partnered Physician] - - Diet and Activity Activity: increase activity as tolerated Diet: low salt diet
--- NOTE | 2018-07-25 13:22 | Physician Discharge Referral ---
Home Health/Hosp Referral Info Transfer to: Home Health Provider in Charge Post Discharge: PCP - Diagnosis (1) Chest pain Status: Acute (2) Pulmonary embolism Status: Chronic (3) COPD (chronic obstructive pulmonary disease) Status: Chronic (4) Congestive heart failure Status: Chronic (5) Hx of CABG Status: Acute (6) Hyperlipidemia Status: Chronic (7) Hypertension Status: Chronic (8) DVT prophylaxis Status: Acute - Respiratory Orders Smoking Cessation: Smoking cessation has been advised. For more information, call the [place] [employer] Quit Line at 5-450-PYXV-NOW. - Services Needed Following services are medically necessary services: Nursing - Transfer Medications Prescriptions: Isosorbide MONOnitrate (24 HR) [Imdur] 30 mg PO DAILY #30 tab.er.24h Home Medications: Atorvastatin Calcium [Lipitor] 80 mg PO HS 12/16/17 [History] Cholecalciferol (D-3) [Vitamin D] 1,000 unit PO DAILY 12/16/17 [History] Duloxetine HCl [Cymbalta] 60 mg PO HS 12/16/17 [History] Furosemide [Lasix] 20 mg PO DAILY 04/01/18 [History] Carvedilol 12.5 mg PO BID 04/02/18 [History] Potassium Chloride [Klor-Con 10] 10 meq PO BID 04/02/18 [History] Cyanocobalamin (Vitamin B-12) [Vitamin B12] 1,000 mcg PO DAILY 06/15/18 [History] Ferrous Sulfate [Iron] 325 mg PO DAILY 06/15/18 [History] Albuterol Neb [Proventil Neb] 2.5 mg IH TID PRN 07/25/18 [History] Aspirin Enteric Coated [Aspirin EC] 81 mg PO DAILY 07/25/18 [History] Isosorbide MONOnitrate (24 HR) [Imdur] 30 mg PO DAILY #30 tab.er.24h 07/25/18 [Rx] Rivaroxaban [Xarelto] 20 mg PO QAM 07/25/18 [History] Tizanidine HCl 2 mg PO HS PRN 07/25/18 [History] Trazodone HCl 50 mg PO HS 07/25/18 [History] Allergies/Adverse Reactions: Allergy/AdvReac Type Severity Reaction Status Date / Time morphine AdvReac Unknown See Verified 07/25/18 11:21 Comments gabapentin AdvReac See Verified 07/25/18 11:21 Comments Certification: Further, I certify that my clinical findings support that this patient is homebound (i.e. absences from home require considerable and taxing effort and are for medical reasons or [employer] services or infrequently or short duration when for other reasons) because: Homebound Reason: Patient requires assistance of a person or device to safely leave home Attestation: My signature below is to certify that this patient is under my care and that I, or nurse practitioner, or a physician's operations and intelligence assistant working with me, has a [id number] encounter with this patient.
[2018-07-25] MEDS ORDERED: tiZANidine 4 MG TABLET PO SCH (21:00)
== END 2018-07-25 14:46 | disposition home or self-care (01) ==
LOC: 3BNU → SUATTDRO 23:51
PROVIDERS: ADMIT Pediatrics; ATTEND Family Medicine